=== PATIENT | male | born 1940 | race Caucasian/White ===

== ENCOUNTER → 2017-09-19 | Outpatient (CLI) | payer MEDICARE, BC ==
--- NOTE | 2017-09-19 11:56 | CT ---
EXAMINATION TYPE: CT brain wo con DATE OF EXAM: 09/19/2017 COMPARISON: NONE INDICATION: dizzy DLP: 1416 (brain and IAC) mGycm, Automated exposure control for dose reduction was used. CONTRAST: None CT of the brain is performed utilizing 3 mm thick sections through the posterior fossa and 3 mm thick sections through the remaining calvarium. Study is performed within 24 hours of arrival to the hosp ital. No abnormal hyperdensity is present to suggest an acute intracranial hemorrhage. No mass lesion is evident. No acute infarcts are evident. Minimal periventricular white matter hypodensity may be present, likel y on the basis of chronic white matter ischemic changes. Ventricles and sulci are appropriate for the patient age. Paranasal sinuses and mastoid air cells within the [id number] are clear. IMPRESSIONS: 1. No suspicious acute changes.
--- NOTE | 2017-09-19 14:09 | CT ---
EXAMINATION TYPE: CT iac wo con DATE OF EXAM: 09/19/2017 COMPARISON: NONE HISTORY: Dizziness CT DLP: 1416 (brain and IAC)mGycm Automated exposure control for dose reduction was used. FINDINGS: Internal auditory canals appear normal. No expansion or erosion is evident. Mastoid air garland ls are clear. Semicircular canals are unremarkable. The cochlea is normal. Middle ears are clear. Inc us and malleus have normal alignment. External auditory canals are clear. No masses are evident withi n the cerebellar pontine angles. Remaining portion of the brain is unremarkable. IMPRESSION: 1. Normal internal auditory canal study.
== END | disposition home or self-care (01) ==
LOC: RADCTMAIN 10:03
PROVIDERS: ATTEND Otolaryngology
DX: H93.3X9 Disorders of unspecified acoustic nerve (principal); H91.90 Unspecified hearing loss, unspecified ear
CPT/HCPCS: 70450; 70480; 82565; 84520

== ENCOUNTER → 2017-11-13 | Outpatient (CLI) | payer MEDICARE, BC | END | disposition home or self-care (01) | LOC: RADCTMAIN 09:44 | PROVIDERS: ATTEND Psychiatry & Neurology Neurology | DX: R42 Dizziness and giddiness (principal) | CPT/HCPCS: 82565; 84520 ==

== ENCOUNTER 2018-06-30 11:08 | Emergency (ER) | payer MEDICARE, BC ==
[2018-06-30 11:16] VITALS: RESP 18; TEMP 97.4
--- NOTE | 2018-06-30 11:24 | ED ---
Lower Extremity Injury HPI - General Chief Complaint: Extremity Injury, Lower Stated Complaint: fall/foot pain Time Seen by Provider: 06/30/18 11:20 Source: patient, RN notes reviewed Mode of arrival: ambulatory Limitations: no limitations - History of Present Illness Initial Comments: 77-year-old male presents emergency Department chief complaint of left foot pain. Patient states that last he slipped on some ice down some steps. Patient states he did fall on his back in his left foot. He states his back is better but states his foot continues to her. Patient states that he noticed some bruising. Patient denies any paresthesias. Denies any head injury no loss conscious. Patient states he is able to partially weight-bear but is very painful. Patient denies any prior fractures. - Related Data Home Medications Medication Instructions Recorded Confirmed Allopurinol [Zyloprim] 200 mg PO DAILY 02/09/16 06/30/18 Tamsulosin HCl [Flomax] 0.4 mg PO BID 02/09/16 06/30/18 Warfarin [Coumadin] 5 mg PO HS 02/09/16 06/30/18 cloNIDine HCL [Catapres] 0.2 mg PO BID 02/09/16 06/30/18 Albuterol Nebulized [Ventolin 2.5 mg INHALATION RT-BID 06/30/18 06/30/18 Nebulized] Furosemide [Lasix] 40 mg PO DAILY 06/30/18 06/30/18 Hydrochlorothiazide [Hydrodiuril] 25 mg PO DAILY 06/30/18 06/30/18 Insulin NPH Human Isophane 35 unit SQ AC-BID 06/30/18 06/30/18 [humuLIN N] Losartan [Cozaar] 50 mg PO DAILY 06/30/18 06/30/18 Pravastatin Sodium [Pravachol] 40 mg PO HS 06/30/18 06/30/18 amLODIPine [Norvasc] 10 mg PO DAILY 06/30/18 06/30/18 Allergies Allergy/AdvReac Type Severity Reaction Status Date / Time hyper immune syrum from Allergy Unknown Uncoded 06/30/18 11:16 horses Childhood Review of Systems ROS Statement: Those systems with pertinent positive or pertinent negative responses have been documented in the HPI. ROS Other: All systems not noted in ROS Statement are negative. Past Medical History Past Medical History: COPD, Diabetes Mellitus, Hyperlipidemia, Hypertension, Myocardial Infarction ([place]) History of Any Multi-Drug Resistant Organisms: None Reported Past Surgical History: Back Surgery, Cholecystectomy, Coronary Bypass/CABG, Heart Catheterization Past Psychological History: No Psychological Hx Reported Smoking Status: Former smoker Past Alcohol Use History: None Reported Past Drug Use History: None Reported General Exam Limitations: no limitations General appearance: alert, in no apparent distress Head exam: Present: atraumatic, normocephalic, normal inspection Respiratory exam: Present: normal lung sounds bilaterally. Absent: respiratory distress, wheezes, rales, rhonchi, stridor Cardiovascular Exam: Present: regular rate, normal rhythm, normal heart sounds. Absent: systolic murmur, diastolic murmur, rubs, gallop, clicks Extremities exam: Present: other (Left foot there is ecchymosis noted along second through fourth metatarsal region, mild lateral ecchymosis noted neurovascular intact there no malleoli tenderness no proximal tib-fib tenderness remaining extremity exam within normal limits) Back exam: Present: full ROM. Absent: tenderness, paraspinal tenderness, vertebral tenderness Skin exam: Present: warm, dry, intact, normal color. Absent: rash Course Vital Signs 06/30/18 11:14 Temperature 97.4 F L Pulse Rate 68 Respiratory 18 Rate Blood Pressure 183/81 O2 Sat by Pulse 99 Oximetry Medical Decision Making - Medical Decision Making 77-year-old male present emergency from for left foot injury. X-rays are obtained no acute fracture. Patient will follow-up with orthopedics for continuation of pain. Disposition Clinical Impression: Sprain of left foot Disposition: HOME SELF-CARE Condition: Stable Instructions (If sedation given, give patient instructions): Foot Sprain (ED) Additional Instructions: Please return to the Emergency Department if symptoms worsen or any other concerns. Is patient prescribed a controlled substance at d/c from ED?: No Referrals: Dereck Greenberg MD [Primary Care Provider] - 1-2 days Adams Frazier MD [STAFF PHYSICIAN] - 1-2 days Time of Disposition: 11:50
--- NOTE | 2018-06-30 11:46 | XR ---
EXAMINATION TYPE: XR foot complete LT DATE OF EXAM: 06/30/2018 CLINICAL HISTORY: Pain swelling and bruising after fall injury one week ago TECHNIQUE: Frontal, lateral, and oblique images of the left foot are obtained. COMPARISON: None FINDINGS: Osseous structures are somewhat demineralized which is noted lower radiographic sensitivity for evaluation of fine anatomic detail. There is no acute fracture/dislocation evident in the left f oot. Flexion in the toes is present. There are moderate-sized superior and inferior calcaneal spurs. There is mild to moderate diffuse subcutaneous edema and vascular calcification. IMPRESSION: There is no acute fracture or dislocation in the left foot.
[2018-06-30] MEDS ORDERED: ACET/COD 300 MG/30 MG STARTER PACK 6 TAB BTL PO STA (12:10)
[2018-06-30 12:20] VITALS: BP 147/60; PULSE 64
== END 2018-06-30 12:20 | disposition home or self-care (01) ==
LOC: EC 11:08
DX: S93.602A Unspecified sprain of left foot, initial encounter (principal); J44.9 Chronic obstructive pulmonary disease, unspecified; E11.9 Type 2 diabetes mellitus without complications; E78.5 Hyperlipidemia, unspecified; I10 Essential (primary) hypertension; I25.2 Old myocardial infarction; Z98.890 Other specified postprocedural states; Z95.1 Presence of aortocoronary bypass graft; Z95.818 Presence of other cardiac implants and grafts; Z87.891 Personal history of nicotine dependence; Z79.01 Long term (current) use of anticoagulants; Z79.4 Long term (current) use of insulin; Z79.899 Other long term (current) drug therapy; Z88.7 Allergy status to serum and vaccine; W00.1XXA Fall from stairs and steps due to ice and snow, initial encounter
CPT/HCPCS: 99283

== ENCOUNTER 2018-09-11 12:23 | Emergency (ER) | payer MEDICARE, BC ==
[2018-09-11 12:38] VITALS: TEMP 97.8
[2018-09-11] MEDS ORDERED: SODIUM CHLORIDE 0.9% 1,000 ML IV STA (12:44)
[2018-09-11 13:12] LABS: Basophils % (A) 0 %; Eosinophils # (A) 0.1 k/uL (0-0.7); Eosinophils % (A) 2 %; HCT 36.9 % (39.0-53.0); HGB 12.7 gm/dL (13.0-17.5); Lymphocytes # (A) 0.7 k/uL (1.0-4.8); Lymphocytes % (A) 14 %; MCH 28.9 pg (25.0-35.0); MCHC 34.5 g/dL (31.0-37.0); MCV 83.8 fL (80.0-100.0); Mean Platelet Volume 9.1; Monocytes # (A) 0.8 k/uL (0-1.0); Monocytes % (A) 14 %; Neutrophils # (A) 3.5 k/uL (1.3-7.7); Neutrophils % (A) 67 %; Platelet Count 100 k/uL (150-450); RDW 15.2 % (11.5-15.5); WBC 5.3 k/uL (3.8-10.6)
[2018-09-11 13:18] LABS: Albumin 3.9 g/dL (3.5-5.0); Calcium 8.6 mg/dL (8.4-10.2); Magnesium 2.1 mg/dL (1.6-2.3); Potassium 4.4 mmol/L (3.5-5.1); Total Protein 6.1 g/dL (6.3-8.2)
[2018-09-11 13:19] LABS: INR 1.2 (<1.2); Partial Thromboplastin Time 27.8 sec (22.0-30.0); Prothrombin Time 12.2 sec (9.0-12.0)
--- NOTE | 2018-09-11 13:19 | ED ---
General Adult HPI - General Chief complaint: Neuro Symptoms/Deficit Stated complaint: Left arm numbness Time Seen by Provider: 09/11/18 12:44 Source: patient, RN notes reviewed, old records reviewed Mode of arrival: ambulatory Limitations: no limitations - History of Present Illness Initial comments: 77-year-old male presents for evaluation of left arm numbness that began approximately 9 AM. This was 4 hours prior to arrival. Denies any focal weakne ss. Denies headache or vision changes. No history of CVA. Denies neck pain or stiffness. Denies trauma. Denies chest pain or dyspnea. Patient denies abdominal pain nausea or vomiting. Denies any other extremity issues. - Related Data Home Medications Medication Instructions Recorded Confirmed Allopurinol [Zyloprim] 100 mg PO BID 02/09/16 09/11/18 Tamsulosin HCl [Flomax] 0.8 mg PO DAILY 02/09/16 09/11/18 Albuterol Nebulized [Ventolin 2.5 mg INHALATION RT-QID PRN 06/30/18 09/11/18 Nebulized] Insulin NPH Human Isophane 35 unit SQ AC-BID 06/30/18 09/11/18 [humuLIN N] Losartan [Cozaar] 50 mg PO DAILY 06/30/18 09/11/18 Pravastatin Sodium [Pravachol] 40 mg PO HS 06/30/18 09/11/18 amLODIPine [Norvasc] 10 mg PO DAILY 06/30/18 09/11/18 Sodium Bicarbonate Tab 650 mg PO BID 09/11/18 09/11/18 Warfarin [Coumadin] 2.5 mg PO HS 09/11/18 09/11/18 Allergies Allergy/AdvReac Type Severity Reaction Status Date / Time hyper immune syrum from Allergy Unknown Uncoded 09/11/18 12:38 horses Childhood Review of Systems ROS Statement: Those systems with pertinent positive or pertinent negative responses have been documented in the HPI. ROS Other: All systems not noted in ROS Statement are negative. Past Medical History Past Medical History: COPD, Diabetes Mellitus, Hyperlipidemia, Hypertension, Myocardial Infarction ([place]) History of Any Multi-Drug Resistant Organisms: None Reported Past Surgical History: Back Surgery, Cholecystectomy, Coronary Bypass/CABG, Heart Catheterization Past Psychological History: No Psychological Hx Reported Smoking Status: Former smoker Past Alcohol Use History: None Reported Past Drug Use History: None Reported General Exam Limitations: no limitations General appearance: alert, in no apparent distress Head exam: Present: atraumatic, normocephalic Eye exam: Present: normal appearance, PERRL, EOMI ENT exam: Present: normal exam Neck exam: Present: normal inspection, full ROM. Absent: tenderness, meningismus, lymphadenopathy Respiratory exam: Present: normal lung sounds bilaterally. Absent: respiratory distress, wheezes Cardiovascular Exam: Present: regular rate, normal rhythm GI/Abdominal exam: Present: soft. Absent: distended, tenderness, guarding Neurological exam: Present: alert, oriented X3, CN II-XII intact, other (Patient reported numbness in the left arm however he has no perceivable numbness on exam, NIH 0). Absent: motor sensory deficit Psychiatric exam: Present: normal affect, normal mood Skin exam: Present: warm, dry, intact. Absent: cyanosis, diaphoretic Course Vital Signs 09/11/18 12:36 Temperature 97.8 F Pulse Rate 73 Respiratory 20 Rate Blood Pressure 177/85 O2 Sat by Pulse 99 Oximetry EKG Findings - EKG Comments: EKG Findings:: EKG: Atrial fibrillation with right bundle branch block, left anterior fascicular block, LVH, rate of 81, QRS duration 148, QTC 527, similar compared to previous EKG 2016. Medical Decision Making - Medical Decision Making 77-year-old male presents with acute onset left arm numbness. On exam patient is well-appearing, mildly hypertensive, he has a nonfocal neurologic exam NIH of 0, reports numbness tingling left arm with no perceivable sensory deficit. CT brain is obtained, negative for intracranial hemorrhage or mass effect, no a cute findings. CT of the cervical spine is obtained which does show from the stenosis at C5-C6, this may be the cause of the patient's symptoms although the sudden onset is suspicious for CVA. Especially in this patient without complaints of neck pain. Laboratory studies reveal normal CBC, creatinine 3.74 which is elevated from most recent at this institution although patient does have chronic kidney disease. This is discussed with the ER physician at [facility] with patient was recently admitted, Dr. Puri, will accept the patient as transfer. - Lab Data Result diagrams: 09/11/18 12:52 09/11/18 12:52 Lab Results 09/11/18 09/11/18 09/11/18 Range/Units 12:52 12:52 12:52 WBC 5.3 (3.8-10.6) k/uL RBC 4.40 (4.30-5.90) m/uL Hgb 12.7 L (13.0-17.5) gm/dL Hct 36.9 L (39.0-53.0) % MCV 83.8 (80.0-100.0) fL MCH 28.9 (25.0-35.0) pg MCHC 34.5 (31.0-37.0) g/dL RDW 15.2 (11.5-15.5) % Plt Count 100 L (150-450) k/uL Neutrophils % 67 % Lymphocytes % 14 % Monocytes % 14 % Eosinophils % 2 % Basophils % 0 % Neutrophils # 3.5 (1.3-7.7) k/uL Lymphocytes # 0.7 L (1.0-4.8) k/uL Monocytes # 0.8 (0-1.0) k/uL Eosinophils # 0.1 (0-0.7) k/uL Basophils # 0.0 (0-0.2) k/uL PT 12.2 H (9.0-12.0) sec INR 1.2 H (<1.2) APTT 27.8 (22.0-30.0) sec Sodium 136 L (137-145) mmol/L Potassium 4.4 (3.5-5.1) mmol/L Chloride 105 (98-107) mmol/L Carbon Dioxide 20 L (22-30) mmol/L Anion Gap 11 mmol/L BUN 42 H (9-20) mg/dL Creatinine 3.74 H (0.66-1.25) mg/dL Est GFR (CKD-EPI)AfAm 17 (>60 ml/min/1.73 sqM) Est GFR (CKD-EPI)NonAf 15 (>60 ml/min/1.73 sqM) Glucose 105 H (74-99) mg/dL Calcium 8.6 (8.4-10.2) mg/dL Magnesium 2.1 (1.6-2.3) mg/dL Total Bilirubin 1.0 (0.2-1.3) mg/dL AST 53 (17-59) U/L ALT 80 H (21-72) U/L Alkaline Phosphatase 114 (38-126) U/L Troponin I (0.000-0.034) ng/mL Total Protein 6.1 L (6.3-8.2) g/dL Albumin 3.9 (3.5-5.0) g/dL 09/11/18 Range/Units 12:52 WBC (3.8-10.6) k/uL RBC (4.30-5.90) m/uL Hgb (13.0-17.5) gm/dL Hct (39.0-53.0) % MCV (80.0-100.0) fL MCH (25.0-35.0) pg MCHC (31.0-37.0) g/dL RDW (11.5-15.5) % Plt Count (150-450) k/uL Neutrophils % % Lymphocytes % % Monocytes % % Eosinophils % % Basophils % % Neutrophils # (1.3-7.7) k/uL Lymphocytes # (1.0-4.8) k/uL Monocytes # (0-1.0) k/uL Eosinophils # (0-0.7) k/uL Basophils # (0-0.2) k/uL PT (9.0-12.0) sec INR (<1.2) APTT (22.0-30.0) sec Sodium (137-145) mmol/L Potassium (3.5-5.1) mmol/L Chloride (98-107) mmol/L Carbon Dioxide (22-30) mmol/L Anion Gap mmol/L BUN (9-20) mg/dL Creatinine (0.66-1.25) mg/dL Est GFR (CKD-EPI)AfAm (>60 ml/min/1.73 sqM) Est GFR (CKD-EPI)NonAf (>60 ml/min/1.73 sqM) Glucose (74-99) mg/dL Calcium (8.4-10.2) mg/dL Magnesium (1.6-2.3) mg/dL Total Bilirubin (0.2-1.3) mg/dL AST (17-59) U/L ALT (21-72) U/L Alkaline Phosphatase (38-126) U/L Troponin I 0.031 (0.000-0.034) ng/mL Total Protein (6.3-8.2) g/dL Albumin (3.5-5.0) g/dL Disposition Clinical Impression: Cerebrovascular accident, Cervical radiculopathy at C5 Disposition: OTHER INSTITUTION NOT DEFINED Condition: Stable Is patient prescribed a controlled substance at d/c from ED?: No Referrals: Dereck Greenberg MD [Primary Care Provider] - 1-2 days Time of Disposition: 14:35 Decision to Admit Reason: Admit from EC - Out of Hospital Transfer - Req. Specs Out of Hospital Transfer - Requested Specifics: Other Emergency Center (Transfer to [facility])
--- NOTE | 2018-09-11 13:44 | XR ---
EXAMINATION TYPE: XR chest 2V DATE OF EXAM: 09/11/2018 COMPARISON: Prior chest x-ray 02/09/2016 and 09/15/2013 HISTORY: Altered mental status TECHNIQUE: Frontal and lateral views of the chest are obtained. FINDINGS: Patient is post median sternotomy. There is no focal air space opacity, pleural effusion, or pneumothorax seen. Calcification present overlying the anterior fourth rib and fifth rib interspac e is stable. The cardiac silhouette size is within normal limits. The osseous structures are intact . Chondroid type lesion suspected within the proximal left humerus is stable. Prominent lung volume m ay be indicative of underlying COPD. IMPRESSION: No acute cardiopulmonary process.
--- NOTE | 2018-09-11 13:54 | CT ---
EXAMINATION TYPE: CT brain cspine wo con DATE OF EXAM: 09/11/2018 COMPARISON: 09/19/2017 HISTORY: Left arm weakness, right ear ringing CT DLP: 1434.4 mGycm, Automated exposure control for dose reduction was used. CONTRAST: None CT of the brain is performed utilizing 3 mm thick sections through the posterior fossa and 3 mm thick sections through the remaining calvarium. Study is performed within 24 hours of arrival to the hospital. No abnormal hyperdensity is present to suggest an acute intracranial hemorrhage. No mass lesion is evident. No acute infarcts are evident. Periventricular white matter hypodensity is present, likely on the ba sis of mild chronic white matter ischemic changes. Ventricles and sulci are prominent for the patient age. Paranasal sinuses and mastoid air cells within the [id number] are clear. IMPRESSIONS: 1. Age-related atrophy with mild periventricular white matter ischemic changes. CT cervical spine. COMPARISON: None CT of the cervical spine is performed in the axial plane at 2 mm thick sections. Reconstructed image s in the coronal, and sagittal plane are reviewed on the computer. No acute fractures are evident. Vertebral body alignment is normal. There is loss of disc height C5-6. Mild narrowing of posterior disc height is present C2-3 C3-4 C4-5. Vertebral body heights are preserved. No spinal canal stenosis is evident. Moderate left foraminal stenosis and mild right foraminal stenosis is present C5-6 secondary to uncov ertebral joint hypertrophy. Mild right foraminal narrowing is present C4-5 from uncovertebral joint h ypertrophy. IMPRESSIONS: 1. Degenerative disc change C5-6. 2. Foraminal stenosis C5-6 from uncovertebral joint hypertrophy.
[2018-09-11] MEDS ORDERED: ASPIRIN 325 MG TAB PO STA (14:29)
[2018-09-11 15:01] VITALS: BP 148/83; PULSE 69; RESP 14
== END 2018-09-11 15:25 | disposition other institution (70) ==
LOC: EC 12:23
DX: I63.9 Cerebral infarction, unspecified (principal); R29.701 NIHSS score 1; M48.02 Spinal stenosis, cervical region; M54.12 Radiculopathy, cervical region; R79.89 Other specified abnormal findings of blood chemistry; J44.9 Chronic obstructive pulmonary disease, unspecified; E78.5 Hyperlipidemia, unspecified; E11.22 Type 2 diabetes mellitus with diabetic chronic kidney disease; I12.9 Hypertensive chronic kidney disease with stage 1 through stage 4 chronic kidney disease, or unspecified chronic kidney disease; N18.9 Chronic kidney disease, unspecified; I25.2 Old myocardial infarction; Z95.1 Presence of aortocoronary bypass graft; Z95.818 Presence of other cardiac implants and grafts; Z87.891 Personal history of nicotine dependence; Z79.4 Long term (current) use of insulin; Z79.01 Long term (current) use of anticoagulants; Z79.899 Other long term (current) drug therapy; Z88.7 Allergy status to serum and vaccine
CPT/HCPCS: 36415; 70450; 71046; 72125; 80053; 83735; 84484; 85025; 85610; 85730; 93005; 96360; 96361; 99285

== ENCOUNTER 2019-10-20 19:16 | Inpatient (IN) | payer MEDICARE, BC ==
[2019-10-20] MEDS: SODIUM CHLORIDE 0.9% 1,000 ML IV SCH (22:00)
[2019-10-20] MEDS ORDERED: WARFARIN 2.5 MG TAB PO SCH (22:15)
[2019-10-20] MEDS ORDERED: hydrALAZINE HCL 50 MG TAB PO SCH (22:15)
[2019-10-20] MEDS: TAMSULOSIN 0.4 MG CAP.ER.24H PO SCH (23:21)
[2019-10-20] MEDS: PRAVASTATIN SODIUM 40 MG TAB PO SCH (23:21)
[2019-10-20] MEDS: DONEPEZIL 10 MG TAB PO SCH (23:21)
[2019-10-21 07:00] LABS: Glucose,Whole Blood 125 mg/dL (75-99)
[2019-10-21] MEDS: INSULIN ASPART (NovoLOG) 100 UNIT/ML VIAL SQ SCH ×4 (07:57→21:17)
[2019-10-21 08:38] LABS: INR 1.3 (<1.2); Prothrombin Time 12.9 sec (9.0-12.0)
[2019-10-21 08:42] LABS: Calcium 7.7 mg/dL (8.4-10.2); Potassium 4.2 mmol/L (3.5-5.1)
[2019-10-21] MEDS: TAMSULOSIN 0.4 MG CAP.ER.24H PO SCH ×2 (08:44→21:16)
[2019-10-21] MEDS: CALCITRIOL 0.25 MCG CAP PO SCH (08:44)
[2019-10-21] MEDS: ALLOPURINOL 100 MG TAB PO SCH (08:44)
[2019-10-21 08:46] LABS: Anisocytosis Slight; Basophils % (A) 0 %; Eosinophils # (A) 0.1 k/uL (0-0.7); Eosinophils % (A) 1 %; HCT 28.5 % (39.0-53.0); HGB 9.2 gm/dL (13.0-17.5); Hypochromasia Slight; Lymphocytes # (A) 0.3 k/uL (1.0-4.8); Lymphocytes % (A) 7 %; MCH 28.6 pg (25.0-35.0); MCHC 32.2 g/dL (31.0-37.0); MCV 88.8 fL (80.0-100.0); Mean Platelet Volume 9.5; Monocytes # (A) 0.6 k/uL (0-1.0); Monocytes % (A) 16 %; Neutrophils # (A) 2.8 k/uL (1.3-7.7); Neutrophils % (A) 72 %; RBC 3.21 m/uL (4.30-5.90); RDW 16.3 % (11.5-15.5); WBC 3.9 k/uL (3.8-10.6)
[2019-10-21] MEDS ORDERED: SPIRONOLACTONE 25 MG TAB PO SCH (09:00)
[2019-10-21] MEDS ORDERED: amLODIPine 10 MG TAB PO SCH (09:00)
--- NOTE | 2019-10-21 10:13 | P.NPCON ---
History of Present Illness - Reason for Consult chronic renal failure - History of Present Illness Reason for consultation: Chronic kidney disease History of present illness: Patient is a 79-year-old male seen in renal consultation for chronic kidney disease. 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 Patient's creatinine in June 2019 was 3.5 with GFR of 17. Patient presented to [facility] yesterday with left-sided flank pain. CAT scan revealed left-sided kidney stones along with mild hydronephrosis. Patient is a poor historian and actually doesn't remember why he is in the hospital. History was obtained from the chart. He denies vomiting or diarrhea. Denies edema. Does feel nauseated at times. Patient's creatinine was 6.5 yesterday and is 6.71 today. hemodynamically stable. No chest pain or shortness of breath. He currently does not have access for hemodialysis. He has been voiding. Vital signs are stable. General: The patient appeared well nourished and normally developed. HEENT: Head exam is unremarkable. Neck is without jugular venous distension. LUNGS: Lungs are clear to auscultation and percussion. Breath sounds decreased. HEART: Rate and Rhythm are regular. First and second heart sounds normal. ABDOMEN: Abdominal exam reveals normal bowel sounds. Non-tender and non- distended. EXTREMITITES: No clubbing, cyanosis, or edema. Past Medical History Past Medical History: COPD, Dementia, Diabetes Mellitus, Hyperlipidemia, Hypertension, Myocardial Infarction ([place]) Last Myocardial Infarction Date:: unsure History of Any Multi-Drug Resistant Organisms: None Reported Past Surgical History: Back Surgery, Cholecystectomy, Coronary Bypass/CABG, Heart Catheterization Past Anesthesia/Blood Transfusion Reactions: No Reported Reaction Past Psychological History: No Psychological Hx Reported Smoking Status: Former smoker Past Alcohol Use History: None Reported Past Drug Use History: None Reported Medications and Allergies Home Medications Medication Instructions Recorded Confirmed Type Allopurinol [Zyloprim] 100 mg PO DAILY 02/09/16 10/20/19 History Tamsulosin HCl [Flomax] 0.4 mg PO BID 02/09/16 10/20/19 History Insulin NPH Human Isophane 25 unit SQ AC-BRKFST 06/30/18 10/20/19 History [humuLIN N] Pravastatin Sodium [Pravachol] 40 mg PO HS 06/30/18 10/20/19 History amLODIPine [Norvasc] 10 mg PO DAILY 06/30/18 10/20/19 History Warfarin [Coumadin] 2.5 mg PO BID 09/11/18 10/20/19 History Calcitriol 0.25 mcg PO DAILY 10/20/19 10/20/19 History Donepezil [Aricept] 10 mg PO HS 10/20/19 10/20/19 History Insulin NPH Human Isophane See Protocol SQ HS 10/20/19 10/20/19 History [humuLIN N] Ipratropium-Albuterol Nebulize 3 ml INHALATION RT-QID PRN 10/20/19 10/20/19 History [Duoneb 0.5 mg-3 mg/3 ml Soln] Spironolactone [Aldactone] 50 mg PO DAILY 10/20/19 10/20/19 History hydrALAZINE HCL [Apresoline] 100 mg PO BID 10/20/19 10/20/19 History Allergies Allergy/AdvReac Type Severity Reaction Status Date / Time hyper immune syrum from Allergy Unknown Uncoded 10/20/19 21:56 horses Childhood Physical Exam Vitals: Vital Signs Temp Pulse Resp BP Pulse Ox 10/21/19 07:00 97.8 F 65 17 137/70 96 10/21/19 03:21 97.7 F 83 17 148/72 97 Intake and Output 10/20/19 10/21/19 10/21/19 22:59 06:59 14:59 Other: # Voids 1 1 Weight 106.594 kg Results - Lab Results Most recent lab results Calcium 7.7 mg/dL (8.4-10.2) L 10/21/19 08:13 10/21/19 08:13 10/21/19 08:13 Assessment and Plan Plan: Assessment: 1. 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 2. Abdominal pain with left-sided nephrolithiasis and hydronephrosis. 3. Metabolic acidosis secondary to chronic kidney disease. 4. Anemia of chronic kidney disease. Rule out iron deficiency. 5. Insulin-dependent diabetes mellitus. 6. Chronic kidney disease mineral bone disease maintained on calcitriol. Plan: Decrease normal saline to 50 mL an hour. Add oral sodium bicarbonate 1300 mg twice daily. Check phosphorus level. Check UA and urine culture. Consult urology for hydronephrosis and nephrolithiasis. Check iron studies. Patient and his have both agreed to proceed with renal replacement therapy. Consult vascular surgery for permacath placement. Plan for first treatment of hemodialysis tomorrow. manager qa to set up outpatient hemodialysis. Thank you for the consultation. I will continue to follow the patient with you during his hospital stay.
[2019-10-21 10:51] LABS: Platelet Count 68 k/uL (150-450); Poikilocytosis (M) Present
[2019-10-21] MEDS: SODIUM CHLORIDE 0.9% 1,000 ML IV SCH (11:28)
[2019-10-21] MEDS: SODIUM BICARBONATE TAB 650 MG TAB PO SCH ×2 (11:28→21:16)
[2019-10-21 11:33] LABS: Glucose,Whole Blood 155 mg/dL (75-99)
--- NOTE | 2019-10-21 11:39 | XR ---
KUB HISTORY: Renal calculi Frontal KUB and 2 images Comparison to prior exam 09/15/2013 There are dense splenic artery calcifications. Lung bases are clear. Patient is post median sternotom y. There is overlying artifact in leads are present. No evident bowel obstruction or pneumoperitoneum . Calcification is present superimposed over the midpole the left kidney paraspinal location measurin g approximately 9 mm. Degenerative disc changes are present in the visualized spine. IMPRESSION: Findings may be indicative of nephrolithiasis or proximal ureteral lithiasis. Bowel gas m ay obscure underlying detail.
[2019-10-21 11:46] LABS: Appearance,Urine Clear (Clear); Bacteria,Urine Rare /hpf; Bilirubin,Urine Negative (Negative); Blood,Urine Moderate (Negative); Color,Urine Yellow; Glucose,Urine (UA) Trace (Negative); Ketones,Urine Negative (Negative); Leukocyte Esterase,Urine Negative (Negative); Mucus,Urine Rare /hpf; Nitrite,Urine Negative (Negative); PH, Urine 5.5 (5.0-8.0); Protein,Urine 2+ (Negative); RBC,Urine 16 /hpf (0-5); Specific Gravity,Urine 1.013 (1.001-1.035); Urobilinogen,Urine <2.0 mg/dL (<2.0); WBC,Urine 3 /hpf (0-5)
--- NOTE | 2019-10-21 12:42 | US ---
EXAMINATION TYPE: US kidneys/renal and bladder DATE OF EXAM: 10/21/2019 COMPARISON: US 07/26/2015. CT September 15, 2013. CLINICAL HISTORY: Hydronephrosis. Abnormal renal lab values. EXAM MEASUREMENTS: Right Kidney: 9.6 x 5.4 x 5.1 cm Left Kidney: 12.2 x 5.9 x 6.0 cm Right Kidney: No hydronephrosis. Cystic area visualized measuring 2.6 cm upper pole Left Kidney: No hydronephrosis. Two Cystic areas visualized, largest measuring 2.7 x 2.5 x 2.5 cm up per pole Bladder: wnl as visualized, not fully distended Bilateral Jets seen: Not visualized on this exam Suboptimal study due to body habitus. There is no evidence for hydronephrosis at this point in time. Cortical thinning in both kidneys seen. A few scattered simple-appearing thin-walled cysts are presen t bilaterally correlate with 2016 CT. No nephrolithiasis is seen. . The urinary bladder is not grea tly distended without intraluminal mass. IMPRESSION: Suboptimal study without hydronephrosis seen bilaterally.
[2019-10-21 15:25] LABS: % Iron Saturation 20.99 (15.00-50.00)
[2019-10-21 15:32] LABS: Ferritin 201.5 ng/mL (22.0-322.0)
[2019-10-21 16:33] LABS: Glucose,Whole Blood 123 mg/dL (75-99)
[2019-10-21 16:45] LABS: Hepatitis B Surface Antigen Non-Reactive (Non-Reactive)
[2019-10-21 16:46] LABS: Hepatitis A Antibody IgM Non-Reactive (Non-Reactive); Hepatitis B Core IgM Non-Reactive (Non-Reactive); Hepatitis C IgG Antibody Non-Reactive (Non-Reactive)
--- NOTE | 2019-10-21 17:42 | P.GSCN ---
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 His serum creatinine level ranged between 3.3 and 3.9 from September 2018 through June 2019. I have seen him in the past in the office, and he is known to have bilateral renal cysts. He presented to [facility] yesterday with left flank discomfort, which she states has been present for several months. He is a vague historian. A computed tomography scan of the abdomen and pelvis without contrast performed on 10/16/2019 revealed a an 11 mm left renal pelvic calculus and a 7 mm left mid pole calculus. Additionally, there was evidence of minimal left hydronephrosis, apparently due to a 2 mm left distal ureteral calculus. No right-sided calculi were seen. Unfortunately, the CD disc sent with him at transfer does not display the images. A renal ultrasound performed earlier today shows no evidence of hydronephrosis. Review of Systems - Constitutional Denies chills, Denies fever - Cardiovascular Denies chest pain - Respiratory Denies dyspnea - Gastrointestinal Denies nausea, Denies vomiting - Genitourinary Reports flank pain, Denies dysuria, Denies hematuria Past Medical History Past Medical History: COPD, Dementia, Diabetes Mellitus, Hyperlipidemia, Hyper tension, Myocardial Infarction ([place]) Last Myocardial Infarction Date:: unsure History of Any Multi-Drug Resistant Organisms: None Reported Past Surgical History: Back Surgery, Cholecystectomy, Coronary Bypass/CABG, Heart Catheterization Past Anesthesia/Blood Transfusion Reactions: No Reported Reaction Past Psychological History: No Psychological Hx Reported Smoking Status: Former smoker Past Alcohol Use History: None Reported Past Drug Use History: None Reported Medications and Allergies Home Medications Medication Instructions Recorded Confirmed Type Allopurinol [Zyloprim] 100 mg PO DAILY 02/09/16 10/20/19 History Tamsulosin HCl [Flomax] 0.4 mg PO BID 02/09/16 10/20/19 History Insulin NPH Human Isophane 25 unit SQ AC-BRKFST 06/30/18 10/20/19 History [humuLIN N] Pravastatin Sodium [Pravachol] 40 mg PO HS 06/30/18 10/20/19 History amLODIPine [Norvasc] 10 mg PO DAILY 06/30/18 10/20/19 History Warfarin [Coumadin] 2.5 mg PO BID 09/11/18 10/20/19 History Calcitriol 0.25 mcg PO DAILY 10/20/19 10/20/19 History Donepezil [Aricept] 10 mg PO HS 10/20/19 10/20/19 History Insulin NPH Human Isophane See Protocol SQ HS 10/20/19 10/20/19 History [humuLIN N] Ipratropium-Albuterol Nebulize 3 ml INHALATION RT-QID PRN 10/20/19 10/20/19 History [Duoneb 0.5 mg-3 mg/3 ml Soln] Spironolactone [Aldactone] 50 mg PO DAILY 10/20/19 10/20/19 History hydrALAZINE HCL [Apresoline] 100 mg PO BID 10/20/19 10/20/19 History Allergies Allergy/AdvReac Type Severity Reaction Status Date / Time hyper immune syrum from Allergy Unknown Uncoded 10/20/19 21:56 horses Childhood Surgical - Exam Vital Signs Temp Pulse Resp BP Pulse Ox 97.7 F 83 17 148/72 97 10/21/19 03:21 10/21/19 03:21 10/21/19 03:21 10/21/19 03:21 10/21/19 03:21 - General well developed, well nourished, no distress - Neck no masses, trachea midline - Respiratory normal respiratory effort - Abdomen Abdomen: soft, non tender, no guarding, no rigid, no rebound - Genitourinary normal penis with no external lesions, testicles non-tender - Psychiatric oriented to time, oriented to person, oriented to place, speech is normal, memory intact Results - Labs 10/21/19 08:13 10/21/19 08:13 Abnormal Lab Results - Last 24 Hours (Table) 10/21/19 10/21/19 10/21/19 Range/Units 06:58 08:13 08:13 RBC 3.21 L (4.30-5.90) m/uL Hgb 9.2 L (13.0-17.5) gm/dL Hct 28.5 L (39.0-53.0) % RDW 16.3 H (11.5-15.5) % Plt Count 68 L (150-450) k/uL PT (9.0-12.0) sec INR (<1.2) Chloride 115 H (98-107) mmol/L Carbon Dioxide 10 L (22-30) mmol/L BUN 65 H (9-20) mg/dL Creatinine 6.71 H (0.66-1.25) mg/dL Glucose 110 H (74-99) mg/dL POC Glucose (mg/dL) 125 H (75-99) mg/dL Calcium 7.7 L (8.4-10.2) mg/dL 10/21/19 Range/Units 08:13 RBC (4.30-5.90) m/uL Hgb (13.0-17.5) gm/dL Hct (39.0-53.0) % RDW (11.5-15.5) % Plt Count (150-450) k/uL PT 12.9 H (9.0-12.0) sec INR 1.3 H (<1.2) Chloride (98-107) mmol/L Carbon Dioxide (22-30) mmol/L BUN (9-20) mg/dL Creatinine (0.66-1.25) mg/dL Glucose (74-99) mg/dL POC Glucose (mg/dL) (75-99) mg/dL Calcium (8.4-10.2) mg/dL Diabetes panel 10/21/19 Range/Units 08:13 Sodium 138 (137-145) mmol/L Potassium 4.2 (3.5-5.1) mmol/L Chloride 115 H (98-107) mmol/L Carbon Dioxide 10 L (22-30) mmol/L BUN 65 H (9-20) mg/dL Creatinine 6.71 H (0.66-1.25) mg/dL Glucose 110 H (74-99) mg/dL Calcium 7.7 L (8.4-10.2) mg/dL Calcium panel 10/21/19 Range/Units 08:13 Calcium 7.7 L (8.4-10.2) mg/dL Pituitary panel 10/21/19 Range/Units 08:13 Sodium 138 (137-145) mmol/L Potassium 4.2 (3.5-5.1) mmol/L Chloride 115 H (98-107) mmol/L Carbon Dioxide 10 L (22-30) mmol/L BUN 65 H (9-20) mg/dL Creatinine 6.71 H (0.66-1.25) mg/dL Glucose 110 H (74-99) mg/dL Calcium 7.7 L (8.4-10.2) mg/dL Adrenal panel 10/21/19 Range/Units 08:13 Sodium 138 (137-145) mmol/L Potassium 4.2 (3.5-5.1) mmol/L Chloride 115 H (98-107) mmol/L Carbon Dioxide 10 L (22-30) mmol/L BUN 65 H (9-20) mg/dL Creatinine 6.71 H (0.66-1.25) mg/dL Glucose 110 H (74-99) mg/dL Calcium 7.7 L (8.4-10.2) mg/dL - Imaging US - kidney/bladder: report reviewed, image reviewed Assessment and Plan Plan: I explained to the patient that the left renal calculi do not appear to be obstructing, and thus unlikely to be contributing to his renal failure. The computed tomography scan suggested the presence of minimal left hydronephrosis due to a 2 mm left distal ureteral calculus, which he may have passed as there is currently no evidence of hydronephrosis seen on ultrasound. It would be advisable for him to undergo ureteroscopic removal of the calculi, as they are not seen on a plain radiograph (thus ESWL cannot be performed). Consideration will be given to performing this tomorrow, though he is scheduled to undergo dialysis catheter placement and it may not be possible to coordinate these procedures. I did review with him what the ureteroscopic procedure consists of, as well as potential risks which include anesthesia, infection, and ureteral injury. He was made aware of the fact that a ureteral stent will be left in place, and that given his stone burden he may require a secondary procedure. Time with Patient: Greater than 30
[2019-10-21] MEDS ORDERED: WARFARIN 5 MG TAB PO SCH (18:00)
--- NOTE | 2019-10-21 18:08 | P.HPIM ---
History of Present Illness H&P Date: 10/21/19 Chief Complaint: Left flank pain History of presenting complaint: This is a pleasant 79-year-old patient of Dr. Greenberg. Reticulocyte stable medical conditions include hypertension, chronic kidney disease, COPD, hyperlipidemia, coronary artery disease, diabetes, osteoarthritis, cognitive impairment, erectile dysfunction. He should not presented to [facility]. With left flank feeling weak. Radiological studies done there showed the left distal ureter stone just proximal to the UVJ junction and also stone in the renal pelvis. Patient was sent down here for urological evaluation. Also was found to have graciously worsening renal function with the bun of 68 and creatinine was 6.5. Patient not the best of historians. Does feel tired and rundown. Consultation was made to urology and nephrology. Patient does take Coumadin which was held. Plan is for her dialysis catheter replaced hopefully tomorrow. Denies any chest pain or palpitation. No fever no chills. Appetite is somewhat okay. Review of systems: GEN.: Tired EYES: None HEENT: None NECK: None RESPIRATORY: None CARDIOVASCULAR: None GASTROINTESTINAL: None GENITOURINARY: None MUSCULOSKELETAL: Some joint pains] LYMPHATICS: None HEMATOLOGICAL: None PSYCHIATRY: Forgetful NEUROLOGICAL: None Past medical history to include: Hypertension, chronic kidney disease, COPD, hyperlipidemia, coronary artery disease, diabetes, osteoarthritis, dementia, erectile dysfunction Social history: Lives at [facility]. Denies history of smoking or alcohol. Physical examination: VITAL SIGNS: 99.2, 96, 22, 118/63, 94% on room air] GENERAL: BMI 33.7, sitting at age of the bed a bit tired. EYES: Pupils equal. Conjunctiva normal. HEENT: External appearance of nose and ears normal, oral cavity grossly normal. NECK: JVD not raised; masses not palpable. HEART: First and second heart sounds are normal; no edema. LUNGS: Respiratory rate normal; clear to auscultation. ABDOMEN: Soft, nontender, liver spleen not palpable, no masses palpable. PSYCH: Able to answer simple questionsl. NEUROLOGICAL: Cranial nerves grossly intact; no facial asymmetry, power and sensation grossly intact. LYMPHATICS: No lymph nodes palpable in the axilla and neck INVESTIGATIONS, reviewed in the clinical context: Lab work from [facility] shows: White count 4.4 hemoglobin 8.7 platelets 86 sodium 136 potassium 4.5 INR 1.29 bun 68 creatinine 6.5 Computed tomography scan of the abdomen shows stone in the left ureter distally and also renal pelvic stone. Assessment: -Left ureteral stone distal proximal to the left ureter junction -Renal nephrolithiasis -Acute on chronic kidney disease advanced with uremic symptoms patient will need renal replacement therapy -Chronic kidney disease stage V -Metabolic acidosis from renal failure -Normocytic anemia likely secondary to chronic kidney disease -Thrombocytopenia -Diabetes mellitus type 2 chronically on insulin -BPH -Coronary artery disease -Moderate cognitive impairment probably from late onset Alzheimer's dementia -COPD -Essential hypertension -Hyperlipidemia -Primary osteoarthritis Plan: Home medications were resumed. Coumadin has been held. Accu-Cheks will be followed. Switch from Humulin and to Levemir.. Care was discussed with the patient. Consultation made to nephrology, urology and vascular surgery. Plan is for a dialysis catheter to be placed tomorrow. Past Medical History Past Medical History: COPD, Dementia, Diabetes Mellitus, Hyperlipidemia, Hypertension, Myocardial Infarction ([place]) Last Myocardial Infarction Date:: unsure History of Any Multi-Drug Resistant Organisms: None Reported Past Surgical History: Back Surgery, Cholecystectomy, Coronary Bypass/CABG, Heart Catheterization Past Anesthesia/Blood Transfusion Reactions: No Reported Reaction Past Psychological History: No Psychological Hx Reported Smoking Status: Former smoker Past Alcohol Use History: None Reported Past Drug Use History: None Reported Medications and Allergies Home Medications Medication Instructions Recorded Confirmed Type Allopurinol [Zyloprim] 100 mg PO DAILY 02/09/16 10/20/19 History Tamsulosin HCl [Flomax] 0.4 mg PO BID 02/09/16 10/20/19 History Insulin NPH Human Isophane 25 unit SQ AC-BRKFST 06/30/18 10/20/19 History [humuLIN N] Pravastatin Sodium [Pravachol] 40 mg PO 06/30/18 10/20/19 History amLODIPine [Norvasc] 10 mg PO DAILY 06/30/18 10/20/19 History Warfarin [Coumadin] 2.5 mg PO BID 09/11/18 10/20/19 History Calcitriol 0.25 mcg PO DAILY 10/20/19 10/20/19 History Donepezil [Aricept] 10 mg PO 10/20/19 10/20/19 History Insulin NPH Human Isophane See Protocol SQ 10/20/19 10/20/19 History [humuLIN N] Ipratropium-Albuterol Nebulize 3 ml INHALATION RT-QID PRN 10/20/19 10/20/19 History [Duoneb 0.5 mg-3 mg/3 ml Soln] Spironolactone [Aldactone] 50 mg PO DAILY 10/20/19 10/20/19 History hydrALAZINE HCL [Apresoline] 100 mg PO BID 10/20/19 10/20/19 History Allergies Allergy/AdvReac Type Severity Reaction Status Date / Time hyper immune syrum from Allergy Unknown Uncoded 10/20/19 21:56 horses Childhood Physical Exam Vitals: Vital Signs Temp Pulse Resp BP Pulse Ox 10/21/19 07:00 97.8 F 65 17 137/70 96 10/21/19 03:21 97.7 F 83 17 148/72 97 Intake and Output 10/20/19 10/21/19 10/21/19 22:59 06:59 14:59 Other: # Voids 1 1 Weight 106.594 kg Results CBC & Chem 7: 10/21/19 08:13 10/21/19 08:13 Labs: Abnormal Lab Results - Last 24 Hours (Table) 10/21/19 10/21/19 10/21/19 Range/Units 06:58 08:13 08:13 RBC 3.21 L (4.30-5.90) m/uL Hgb 9.2 L (13.0-17.5) gm/dL Hct 28.5 L (39.0-53.0) % RDW 16.3 H (11.5-15.5) % Plt Count 68 L (150-450) k/uL PT (9.0-12.0) sec INR (<1.2) Chloride 115 H (98-107) mmol/L Carbon Dioxide 10 L (22-30) mmol/L BUN 65 H (9-20) mg/dL Creatinine 6.71 H (0.66-1.25) mg/dL Glucose 110 H (74-99) mg/dL POC Glucose (mg/dL) 125 H (75-99) mg/dL Calcium 7.7 L (8.4-10.2) mg/dL 10/21/19 Range/Units 08:13 RBC (4.30-5.90) m/uL Hgb (13.0-17.5) gm/dL Hct (39.0-53.0) % RDW (11.5-15.5) % Plt Count (150-450) k/uL PT 12.9 H (9.0-12.0) sec INR 1.3 H (<1.2) Chloride (98-107) mmol/L Carbon Dioxide (22-30) mmol/L BUN (9-20) mg/dL Creatinine (0.66-1.25) mg/dL Glucose (74-99) mg/dL POC Glucose (mg/dL) (75-99) mg/dL Calcium (8.4-10.2) mg/dL Thrombosis Risk Factor Assmnt - Choose All That Apply Any of the Below Risk Factors Present?: Yes Each Factor Represents 1 point: Obesity (BMI >25), Swollen legs (current) Other Risk Factors: Yes Each Risk Factor Represents 3 Points: Age 75 years or older Other congenital or acquired thrombophilia - If yes, enter type in comment: No Thrombosis Risk Factor Assessment Total Risk Factor Score: 5 Thrombosis Risk Factor Assessment Level: High Risk
[2019-10-21 21:08] LABS: Glucose,Whole Blood 146 mg/dL (75-99)
[2019-10-21] MEDS: PRAVASTATIN SODIUM 40 MG TAB PO SCH (21:16)
[2019-10-21] MEDS: DONEPEZIL 10 MG TAB PO SCH (21:16)
[2019-10-21] MEDS: INSULIN DETEMIR (LEVEMIR) 100 UNIT/ML SYR SQ SCH (21:16)
[2019-10-22 07:05] LABS: Glucose,Whole Blood 109 mg/dL (75-99)
[2019-10-22] MEDS: INSULIN ASPART (NovoLOG) 100 UNIT/ML VIAL SQ SCH ×4 (07:19→20:44)
[2019-10-22 08:34] LABS: Anisocytosis Slight; Basophils % (A) 1 %; Eosinophils # (A) 0.1 k/uL (0-0.7); Eosinophils % (A) 3 %; HCT 25.6 % (39.0-53.0); HGB 8.4 gm/dL (13.0-17.5); Hypochromasia Slight; INR 1.3 (<1.2); Lymphocytes # (A) 0.3 k/uL (1.0-4.8); Lymphocytes % (A) 11 %; MCH 28.9 pg (25.0-35.0); MCHC 32.8 g/dL (31.0-37.0); MCV 88.2 fL (80.0-100.0); Mean Platelet Volume 9.9; Monocytes # (A) 0.5 k/uL (0-1.0); Monocytes % (A) 17 %; Neutrophils % (A) 65 %; Prothrombin Time 13.3 sec (9.0-12.0); WBC 3.1 k/uL (3.8-10.6)
[2019-10-22 08:41] LABS: Calcium 7.8 mg/dL (8.4-10.2); Magnesium 1.7 mg/dL (1.6-2.3); Phosphorus 6.7 mg/dL (2.5-4.5); Potassium 4.2 mmol/L (3.5-5.1)
[2019-10-22 08:43] LABS: Platelet Count 73 k/uL (150-450)
[2019-10-22] MEDS: ALLOPURINOL 100 MG TAB PO SCH (08:50)
[2019-10-22] MEDS: SODIUM BICARBONATE TAB 650 MG TAB PO SCH ×2 (08:50→20:43)
[2019-10-22] MEDS: CALCITRIOL 0.25 MCG CAP PO SCH (08:50)
[2019-10-22] MEDS: TAMSULOSIN 0.4 MG CAP.ER.24H PO SCH ×2 (08:50→20:44)
[2019-10-22] MEDS: SODIUM CHLORIDE 0.9% 1,000 ML IV SCH (08:51)
--- NOTE | 2019-10-22 11:13 | P.PN ---
Subjective Patient is seen in follow-up for chronic kidney disease. Patient has chronic kidney disease stage V secondary to diabetic kidney disease. Scheduled for permacath placement at first treatment of hemodialysis today. No active complaints. Vital signs are stable. General: The patient appeared well nourished and normally developed. HEENT: Head exam is unremarkable. Neck is without jugular venous distension. LUNGS: Lungs are clear to auscultation and percussion. Breath sounds decreased. HEART: Rate and Rhythm are regular. ABDOMEN: Nontender, nondistended. EXTREMITITES: No clubbing, cyanosis, or edema. Objective - Vital Signs Vital signs: Vital Signs Temp 97.5 F L 10/22/19 07:00 Pulse 79 10/22/19 08:00 Resp 17 10/22/19 08:00 BP 135/68 10/22/19 07:00 Pulse Ox 98 10/22/19 07:00 Intake & Output 10/21/19 10/22/19 10/22/19 18:59 06:59 18:59 Intake Total 100 Balance 100 Intake: Oral 100 Other: # Voids 2 - Labs CBC & Chem 7: 10/22/19 07:57 10/22/19 07:57 Labs: Abnormal Lab Results - Last 24 Hours (Table) 10/21/19 10/21/19 10/21/19 Range/Units 08:13 10:09 11:32 WBC (3.8-10.6) k/uL RBC (4.30-5.90) m/uL Hgb (13.0-17.5) gm/dL Hct (39.0-53.0) % RDW (11.5-15.5) % Plt Count (150-450) k/uL Lymphocytes # (1.0-4.8) k/uL PT (9.0-12.0) sec INR (<1.2) Chloride (98-107) mmol/L Carbon Dioxide (22-30) mmol/L BUN (9-20) mg/dL Creatinine (0.66-1.25) mg/dL POC Glucose (mg/dL) 155 H (75-99) mg/dL Calcium (8.4-10.2) mg/dL Phosphorus (2.5-4.5) mg/dL Iron 55 L (65-175) ug/dL Urine Protein 2+ H (Negative) Urine Glucose (UA) Trace H (Negative) Urine Blood Moderate H (Negative) Urine RBC 16 H (0-5) /hpf Urine Bacteria Rare H (None) /hpf Urine Mucus Rare H (None) /hpf 10/21/19 10/21/19 10/22/19 Range/Units 16:32 21:04 07:03 WBC (3.8-10.6) k/uL RBC (4.30-5.90) m/uL Hgb (13.0-17.5) gm/dL Hct (39.0-53.0) % RDW (11.5-15.5) % Plt Count (150-450) k/uL Lymphocytes # (1.0-4.8) k/uL PT (9.0-12.0) sec INR (<1.2) Chloride (98-107) mmol/L Carbon Dioxide (22-30) mmol/L BUN (9-20) mg/dL Creatinine (0.66-1.25) mg/dL POC Glucose (mg/dL) 123 H 146 H 109 H (75-99) mg/dL Calcium (8.4-10.2) mg/dL Phosphorus (2.5-4.5) mg/dL Iron (65-175) ug/dL Urine Protein (Negative) Urine Glucose (UA) (Negative) Urine Blood (Negative) Urine RBC (0-5) /hpf Urine Bacteria (None) /hpf Urine Mucus (None) /hpf 10/22/19 10/22/19 10/22/19 Range/Units 07:57 07:57 07:57 WBC 3.1 L (3.8-10.6) k/uL RBC 2.90 L (4.30-5.90) m/uL Hgb 8.4 L (13.0-17.5) gm/dL Hct 25.6 L (39.0-53.0) % RDW 16.0 H (11.5-15.5) % Plt Count 73 L (150-450) k/uL Lymphocytes # 0.3 L (1.0-4.8) k/uL PT 13.3 H (9.0-12.0) sec INR 1.3 H (<1.2) Chloride 116 H (98-107) mmol/L Carbon Dioxide 10 L (22-30) mmol/L BUN 63 H (9-20) mg/dL Creatinine 6.62 H (0.66-1.25) mg/dL POC Glucose (mg/dL) (75-99) mg/dL Calcium 7.8 L (8.4-10.2) mg/dL Phosphorus 6.7 H (2.5-4.5) mg/dL Iron (65-175) ug/dL Urine Protein (Negative) Urine Glucose (UA) (Negative) Urine Blood (Negative) Urine RBC (0-5) /hpf Urine Bacteria (None) /hpf Urine Mucus (None) /hpf Microbiology - Last 24 Hours (Table) 10/21/19 10:09 Urine Culture - Preliminary Urine,Voided Assessment and Plan Plan: Assessment: 1. 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 2. Abdominal pain with left-sided nephrolithiasis and hydronephrosis. Urology following. Potential ureteroscopy this admission. 3. Metabolic acidosis secondary to chronic kidney disease. Maintained on oral sodium bicarbonate. Expect improvement post dialysis. 4. Anemia of chronic kidney disease. Iron deficiency noted. 5. Insulin-dependent diabetes mellitus. 6. Chronic kidney disease mineral bone disease maintained on calcitriol. 7. Hyperphosphatemia secondary to chronic kidney disease. Expect improvement postdialysis. Plan: Maintain oral sodium bicarbonate. IV iron 3 doses. First dose today. Patient and his have both agreed to proceed with renal replacement therapy. Scheduled for permacath placement today. First treatment of hemodialysis today and second treatment tomorrow. skating rink manager to set up outpatient hemodialysis.
[2019-10-22] MEDS ORDERED: SODIUM FERRIC GLUCONAT-SUCROSE 125 MG in SODIUM CHLORIDE 0.9% 100 ML IVPB SCH (11:15)
[2019-10-22 12:04] LABS: Glucose,Whole Blood 93 mg/dL (75-99)
[2019-10-22] MEDS ORDERED: HYDROmorphone 0.5 MG/0.5 ML SYRINGE IVP PRN (14:12)
[2019-10-22] MEDS ORDERED: MIDAZOLAM 2 MG/2 ML VIAL IV ONE (14:35)
[2019-10-22] MEDS ORDERED: LIDOCAINE 1% INJ 10MG/ML (20 ML MDV) SQ ONE (14:39)
[2019-10-22] MEDS ORDERED: IV FLUID CONTINUATION 1,000 ML IV ONE (14:43)
[2019-10-22] MEDS ORDERED: HEPARIN SODIUM 1,000 UN/ML (10ML VL) IV ONE (14:47)
--- NOTE | 2019-10-22 15:23 | XR ---
EXAMINATION TYPE: XR chest 1V portable DATE OF EXAM: 10/22/2019 HISTORY: Verify placement of Right IJ dialysis cath. COMPARISON: None. TECHNIQUE: Single view of the chest is submitted. FINDINGS: Demonstrated are scattered senescent parenchymal change. There is no evidence for focal infiltrate. Right-sided IJ dialysis catheter is noted with its distal tip overlying the SVC. No evidence for pneumothorax. The heart is enlarged. Hilar and mediastinal structures are within normal limits. Degenerative changes are seen of the dorsal spine. IMPRESSION: 1. Chronic changes without evidence for acute pulmonary disease.
[2019-10-22] MEDS: LACTATED RINGERS 1,000 ML IV SCH (15:27)
[2019-10-22] MEDS: SODIUM FERRIC GLUCONAT-SUCROSE 125 MG in SODIUM CHLORIDE 0.9% 100 ML IVPB SCH (15:27)
[2019-10-22 16:22] LABS: Glucose,Whole Blood 131 mg/dL (75-99)
--- NOTE | 2019-10-22 16:35 | P.PN ---
Progress Note - Text Progress Note Date: 10/22/19 The patient is currently undergoing dialysis. I attempted to review the computed tomography scan, but the images could not be viewed on 2 separate computers. In any case, the computed tomography scan report suggested the presence of a small left distal ureteral calculus as well as 2 left renal calculi. I intend to perform cystoscopy, left retrograde pyelogram, left ureteroscopy with holmium laser lithotripsy, left ureteral stent placement tomorrow. I have reviewed the entire procedure with him, including the rationale and potential risks. These include anesthesia, bleeding, infection, and ureteral injury. He is aware of the possible need for a secondary treatment.
--- NOTE | 2019-10-22 19:22 | P.PN ---
Progress Note - Text Progress Note Date: 10/22/19 Chief Complaint: Left flank pain History of presenting complaint: This is a pleasant 79-year-old patient of Dr. Greenberg. Reticulocyte stable medical conditions include hypertension, chronic kidney disease, COPD, hyperlipidemia, coronary artery disease, diabetes, osteoarthritis, cognitive impairment, erectile dysfunction. He should not presented to [place] [facility]. With left flank feeling weak. Radiological studies done there showed the left distal ureter stone just proximal to the UVJ junction and also stone in the renal pelvis. Patient was sent down here for urological evaluation. Also was found to have graciously worsening renal function with the bun of 68 and creatinine was 6.5. Patient not the best of historians. Does feel tired and rundown. Consultation was made to urology and nephrology. Patient does take Coumadin which was held. Plan is for her dialysis catheter replaced hopefully tomorrow. Denies any chest pain or palpitation. No fever no chills. Appetite is somewhat okay. Admitted with-left ureter stone, acute on chronic kidney disease, metabolic acidosis. Coumadin was held. IV fluids. Today-sitting up. Tolerating a diet. Patient is scheduled for dialysis catheter placement this afternoon. No new issues. Review of systems: Was done for constitutional, cardiovascular, GI, pulmonary. relevant finding as above Active Medications Allopurinol (Zyloprim) 100 mg PO DAILY [facility] Last Admin: 10/22/19 08:50 Dose: 100 mg Documented by: Calcitriol (Rocaltrol) 0.25 mcg PO DAILY [facility] Last Admin: 10/22/19 08:50 Dose: 0.25 mcg Documented by: Donepezil HCl (Aricept) 10 mg PO HS [facility] Last Admin: 10/21/19 21:16 Dose: 10 mg Documented by: Hydromorphone HCl (Dilaudid) 0.5 mg IVP Q5M PRN PRN Reason: Pain Control Stop: 10/23/19 14:13 Sodium Chloride (Saline 0.9%) 1,000 mls @ 50 mls/hr IV .Q20H [facility] Last Admin: 10/22/19 08:51 Dose: 50 mls/hr Documented by: Ferric Sodium Gluconate 125 mg (/ Sodium Chloride) 110 mls @ 100 mls/hr IVPB DAILY [facility] Last Admin: 10/22/19 15:27 Dose: 100 mls/hr Documented by: Lactated Ringer's (Lactated Ringers) 1,000 mls @ 20 mls/hr IV .Q24H [facility] Last Admin: 10/22/19 15:27 Dose: 20 mls/hr Documented by: Cefazolin Sodium 2 gm/ Sodium (Chloride) 50 mls @ 100 mls/hr IVPB ONCE ONE Stop: 10/23/19 09:29 Insulin Aspart (Novolog) 0 unit SQ [facility]; Protocol Last Admin: 10/22/19 17:17 Dose: Not Given Documented by: Insulin Detemir (Levemir) 10 unit SQ [facility] Last Admin: 10/21/19 21:16 Dose: 10 unit Documented by: Miscellaneous Information (Coumadin Per Pharmacy) 0 each MISCELLANE DIRECTED PRN PRN Reason: Per Protocol Pravastatin Sodium (Pravachol) 40 mg PO [facility] Last Admin: 10/21/19 21:16 Dose: 40 mg Documented by: Sodium Bicarbonate (Sodium Bicarbonate Tab) 1,300 mg PO BID [facility] Last Admin: 10/22/19 08:50 Dose: 1,300 mg Documented by: Tamsulosin HCl (Flomax) 0.4 mg PO BID [facility] Last Admin: 10/22/19 08:50 Dose: 0.4 mg Documented by: Physical examination: VITAL SIGNS: 97.5, 79, 17, 135/68, 98% room air GENERAL: Sitting of age of the bed, awake. EYES: Pupils equal. Conjunctiva normal. HEENT: External appearance of nose and ears normal, oral cavity grossly normal. NECK: JVD not raised; masses not palpable. HEART: First and second heart sounds are normal; no edema. LUNGS: Respiratory rate normal; clear to auscultation. ABDOMEN: Soft, nontender, liver spleen not palpable, no masses palpable. PSYCH: Able to answer simple questionsl. INVESTIGATIONS, reviewed in the clinical context: White count 3.1 hemoglobin 8.4 platelets 73 pressure 4.2 bun 63 creatinine 6.6 to pro time 13.3 Lab work from [facility] shows: White count 4.4 hemoglobin 8.7 platelets 86 sodium 136 potassium 4.5 INR 1.29 bun 68 creatinine 6.5 Computed tomography scan of the abdomen shows stone in the left ureter distally and also renal pelvic stone. Assessment: -Left ureteral stone distal proximal to the left ureter junction -Renal nephrolithiasis -Acute on chronic kidney disease advanced with uremic symptoms patient will need renal replacement therapy-slow to respond -Chronic kidney disease stage V -Metabolic acidosis from renal failure -Normocytic anemia likely secondary to chronic kidney disease -Thrombocytopenia -Diabetes mellitus type 2 chronically on insulin -BPH -Coronary artery disease -Moderate cognitive impairment probably from late onset Alzheimer's dementia -COPD -Essential hypertension -Hyperlipidemia -Primary osteoarthritis Plan: Sulfa the patient this morning. Due for dialysis catheter placement this afternoon. Discussed with Dr. San from urology. Though the left ureter stone was not felt to be contributing images treatment of the acute kidney injury a to have some contribution though. Hence patient will have intervention by Dr. San tomorrow. Continue with IV fluids.
[2019-10-22 20:24] LABS: Glucose,Whole Blood 167 mg/dL (75-99)
[2019-10-22] MEDS: DONEPEZIL 10 MG TAB PO SCH (20:43)
[2019-10-22] MEDS: PRAVASTATIN SODIUM 40 MG TAB PO SCH (20:43)
[2019-10-22] MEDS: INSULIN DETEMIR (LEVEMIR) 100 UNIT/ML SYR SQ SCH (21:31)
[2019-10-23] MEDS: METOPROLOL TARTRATE 25 MG TAB PO SCH ×3 (02:59→21:35)
[2019-10-23] MEDS: SODIUM CHLORIDE 0.9% 1,000 ML IV SCH ×2 (03:00→23:44)
[2019-10-23 06:57] LABS: Glucose,Whole Blood 88 mg/dL (75-99)
[2019-10-23 08:02] LABS: Calcium 7.7 mg/dL (8.4-10.2); Potassium 3.6 mmol/L (3.5-5.1)
[2019-10-23 08:06] LABS: INR 1.4 (<1.2); Prothrombin Time 13.7 sec (9.0-12.0)
[2019-10-23 08:15] LABS: Anisocytosis Slight; HCT 25.4 % (39.0-53.0); HGB 8.5 gm/dL (13.0-17.5); MCH 29.1 pg (25.0-35.0); MCHC 33.2 g/dL (31.0-37.0); MCV 87.4 fL (80.0-100.0); Mean Platelet Volume 9.6; RBC 2.91 m/uL (4.30-5.90)
[2019-10-23 08:18] LABS: Platelet Count 55 k/uL (150-450)
[2019-10-23 09:23] LABS: Eosinophils # (M) 0.03 k/uL (0-0.7); Lymphocytes # (M) 0.42 k/uL (1.0-4.8); Monocytes # (M) 0.36 k/uL (0-1.0); Neutrophils # (M) 2.19 k/uL (1.3-7.7); Neutrophils % (M) 73 %; Nucleated Red Blood Cells 0 /100 WBC (0-0); Total Cells Counted 100
[2019-10-23 09:24] LABS: Poikilocytosis (M) Present
[2019-10-23] MEDS ORDERED: SODIUM CHLORIDE 0.9% 1,000 ML IV ONE (09:30)
[2019-10-23] MEDS: INSULIN ASPART (NovoLOG) 100 UNIT/ML VIAL SQ SCH ×4 (09:41→21:31)
--- NOTE | 2019-10-23 10:07 | CONS ---
CONSULTATION This is a 79-year-old gentleman who has acute on chronic renal failure with high BUN and creatinine. I was consulted for placement of urgent dialysis catheter. MEDICAL HISTORY: Includes a history of chronic kidney disease, COPD, hyperlipidemia, coronary artery disease, diabetes mellitus, hypertension. SOCIAL HISTORY: Denies any smoking. SURGICAL HISTORY: Patient had back surgery, cholecystectomy, coronary artery bypass graft done in the past. PHYSICAL EXAMINATION: Patient was seen. NECK: Supple. Trachea central. CHEST: Clear to auscultation. ABDOMEN: Soft. Femoral pulses are present. Normal motor function noted. PLAN: Placement of the dialysis catheter. Risks and complications of bleeding, infection, thrombosis has been discussed. Thank you very much for the consultation. MMODL / IJN: [id number] /
--- NOTE | 2019-10-23 10:10 | PCN ---
PROCEDURE NOTE PREOP DIAGNOSIS: Acute on chronic renal failure. POSTOP DIAGNOSIS: Acute on chronic renal failure. PROCEDURE PERFORMED: Ultrasound-guided dialysis catheter placed right jugular approach. SEDATION: Time is 20 minutes. DESCRIPTION OF PROCEDURE: The patient brought to the labor utilization superintendent. Right side of the chest and neck was prepped and drapes applied in usual sterile manner. 1% lidocaine infiltrated. Ultrasound-guided micropuncture needle right jugular vein. Micropuncture guidewire was passed. After that, we passed a regular guidewire and then dilator was advanced on the top of the guidewire. The guidewire was parked at the inferior vena cava. A tunnel was created. Through the tunnel, we brought the dialysis catheter. We introduced the sheath under fluoroscopy control. Through the sheath we introduced the dialysis catheter. Sheath was removed. The tip of the catheter in superior vena cava at the junction. Flushed with heparin saline and hep-locked and incision was closed with Vicryl and nylon. Dressing applied. Patient tolerated the procedure well. MMODL / IJN: [id number] /
[2019-10-23] MEDS ORDERED: fentaNYL (PF) 50 MCG/ML 2 ML AMP ONE (10:17)
[2019-10-23] MEDS ORDERED: SUCCINYLCHOLINE CHLORIDE 100 MG/5 ML SYR IV ONE (10:17)
[2019-10-23] MEDS ORDERED: PROPOFOL 10 MG/ML 20 ML VIAL IV ONE (10:17)
[2019-10-23] MEDS ORDERED: ONDANSETRON 4 MG/2 ML VIAL ONE (10:17)
[2019-10-23] MEDS ORDERED: NEOSTIGMINE 1 MG/ML 10 ML VIAL ONE (10:17)
[2019-10-23] MEDS ORDERED: LIDOCAINE 1% INJ 10MG/ML (20 ML MDV) ONE (10:17)
[2019-10-23] MEDS ORDERED: ePHEDrine SULFATE/0.9% NACL/PF 50 MG/5 ML SYRINGE IV ONE (10:17)
[2019-10-23] MEDS ORDERED: GLYCOPYRROLATE 0.2 MG/ML 2 ML VIAL ONE (10:17)
[2019-10-23] MEDS ORDERED: IOPAMIDOL-370 50ML BTL MISCELLANE ONE (10:44)
[2019-10-23 11:59] LABS: Glucose,Whole Blood 84 mg/dL (75-99)
--- NOTE | 2019-10-23 12:00 | P.OP ---
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 His serum creatinine level ranged between 3.3 and 3.9 from September 2018 through June 2019. I have seen him in the past in the office, and he is known to have bilateral renal cysts. He presented to yesterday with left flank discomfort, which she states has been present for several months. He is a vague historian. A computed tomography scan of the abdomen and pelvis without contrast performed on 10/16/2019 revealed a an 11 mm left renal pelvic calculus and a 7 mm left mid pole calculus. Additionally, there was evidence of minimal left hydronephrosis, apparently due to a 2 mm left distal ureteral calculus. No right-sided calculi were seen. Unfortunately, the CD disc sent with him at transfer does not display the images. A renal ultrasound performed earlier today shows no evidence of hydronephrosis. Operative Findings: 1) No ureteral calculi 2) Dilated left upper pole calyx, possibly due to infundibular calculus. 3) 2 left renal calculi, fragmented completely. Description of Procedure: The patient was taken to the operating room and placed in the dorsolithotomy position, with legs supported in Krzysztof stirrups. The external genitalia was prepped and draped sterilely. The 30 lens was used to introduce the 19-H[place]er Stortz cystoscopic sheath through the urethra and into the bladder under direct vision. The prostatic urethra showed evidence of moderate obstructing lateral lobe enlargement. The bladder was examined in its entirety. The ureteral orifices appeared normal. No tumors were seen. Several small calculi were seen. Using a 10-[place] Konger cone-tipped catheter, a left retrograde pyelogram was performed. The course of the ureter was seen on fluoroscopy. Mild J hooking of the distal ureter was noted. No calculi were seen within the ureter. The ureter was essentially normal in caliber. The left upper pole collecting system was dilated. The renal pelvis otherwise appeared normal. The [employer] semirigid ureteroscope was advanced into the bladder under direct vision. The left ureteral orifice was cannulated. The ureteroscope was advanced a short distance, showing no calculi. The ureter diminished in caliber, such that the ureteroscope could not be advanced further. A 0.038 inch Glidewire was passed through the ureteroscope and up to the left renal pelvis. The ureteroscope was removed, and an 11/13-Hong Konger ureteral access catheter was passed over the wire, up to the mid ureter. The Olympus mini flexible ureteroscope was passed through the ureteral access catheter sheath and advanced under direct vision. A mucosal tear was noted proximal to the ureteral access catheter sheath. The ureteroscope was advanced through the lumen and into the left renal pelvis. With N/A an upper pole infundibulum a calculus was identified. The 200 micron Holmium laser probe was passed through the ureteroscope, and lithotripsy was performed primarily utilizing a dusting technique. After fragmenting this calculus, the ureteroscope was advanced into a dilated calyx, where a second calculus was seen. Lithotripsy was again performed, and continued until there were no residual calculus fragments exceeding 1-2 mm in size. The remaining calyces were inspected, but no additional calculi were seen. The Glidewire was passed through the ureteroscope, which was then removed along with the ureteral access catheter sheath under direct vision. The Glidewire was backloaded into the cystoscope, which was passed into the bladder. A 26 cm, 6-Hong Konger double-J ureteral stent was placed over the wire. Proper stent positioning was verified fluoroscopically and endoscopically. The bladder was emptied and the cystoscope removed. The patient tolerated the procedure well and was taken to the recovery room in stable condition. Optinuity Report: Procedure Acuity: Semi-Urgent Stone Size and Location: 11 mm left upper pole infundibulum, 7 mm upper pole calyx Ureteral Dilation: No Ureteral Access Sheath Used: Yes Stone Sent for Analysis: No All Stones/Fragments Were Removed with a Basket: No Complications: No Preoperative Antibiotics Given: Yes Stent Placed: Yes If Stent Placed, Was String Left Attached: No If Stent Placed, When is it to be Removed: 1 month
--- NOTE | 2019-10-23 12:15 | FL ---
FLUOROSCOPY 20 seconds of fluoroscopy time were utilized during left ureteral stone removal and stent placement. 6 images document the procedure.
[2019-10-23] MEDS: LACTATED RINGERS 1,000 ML IV SCH (13:15)
[2019-10-23] MEDS: SODIUM BICARBONATE TAB 650 MG TAB PO SCH ×2 (13:17→21:30)
[2019-10-23] MEDS: ALLOPURINOL 100 MG TAB PO SCH (13:17)
[2019-10-23] MEDS: CALCITRIOL 0.25 MCG CAP PO SCH (13:17)
[2019-10-23] MEDS: SODIUM FERRIC GLUCONAT-SUCROSE 125 MG in SODIUM CHLORIDE 0.9% 100 ML IVPB SCH (13:17)
[2019-10-23] MEDS: TAMSULOSIN 0.4 MG CAP.ER.24H PO SCH ×2 (13:17→21:30)
[2019-10-23] MEDS: HYDROmorphone 0.5 MG/0.5 ML SYRINGE IVP PRN (15:31)
[2019-10-23 17:03] LABS: Glucose,Whole Blood 81 mg/dL (75-99)
[2019-10-23] MEDS ORDERED: WARFARIN 5 MG TAB PO ONE (18:00)
[2019-10-23] MEDS ORDERED: IPRATROPIUM-ALBUTEROL 3 ML NEB INHALATION PRN (18:16)
[2019-10-23] MEDS ORDERED: ALLOPURINOL 100 MG TAB PO SCH (18:30)
--- NOTE | 2019-10-23 18:54 | P.PN ---
Progress Note - Text Progress Note Date: 10/23/19 Chief Complaint: Left flank pain History of presenting complaint: This is a pleasant 79-year-old patient of Dr. Greenberg. Reticulocyte stable medical conditions include hypertension, chronic kidney disease, COPD, hyperlipidemia, coronary artery disease, diabetes, osteoarthritis, cognitive impairment, erectile dysfunction. He should not presented to [place] [facility]. With left flank feeling weak. Radiological studies done there showed the left distal ureter stone just proximal to the UVJ junction and also stone in the renal pelvis. Patient was sent down here for urological evaluation. Also was found to have graciously worsening renal function with the bun of 68 and creatinine was 6.5. Patient not the best of historians. Does feel tired and rundown. Consultation was made to urology and nephrology. Patient does take Coumadin which was held. Plan is for her dialysis catheter replaced hopefully tomorrow. Denies any chest pain or palpitation. No fever no chills. Appetite is somewhat okay. Admitted with-left ureter stone, acute on chronic kidney disease, metabolic acidosis. Coumadin was held. IV fluids. Today-patient taken to the or. Underwent cystoscopy, left retrograde pyelogram, left ureteroscopic and laser lithotripsy, left ureter stent inserted. No left ureteral calculi was found. Postprocedure tired laying bed. Also right IJ hemodialysis catheter was placed by Dr. Mejia Review of systems: Was done for constitutional, cardiovascular, GI, pulmonary. relevant finding as above Active Medications Albuterol/Ipratropium (Duoneb 0.5 Mg-3 Mg/3 Ml Soln) 3 ml INHALATION RT-QID PRN PRN Reason: Shortness Of Breath Allopurinol (Zyloprim) 100 mg PO DAILY [facility] Last Admin: 10/23/19 13:17 Dose: 100 mg Documented by: Amlodipine Besylate (Norvasc) 10 mg PO DAILY [facility] Calcitriol (Rocaltrol) 0.25 mcg PO DAILY [facility] Last Admin: 10/23/19 13:17 Dose: 0.25 mcg Documented by: Donepezil HCl (Aricept) 10 mg PO HS [facility] Last Admin: 10/22/19 20:43 Dose: 10 mg Documented by: Hydralazine HCl (Apresoline) 100 mg PO BID [facility] Hydromorphone HCl (Dilaudid) 0.5 mg IVP Q2HR PRN PRN Reason: Pain Last Admin: 10/23/19 15:31 Dose: 0.5 mg Documented by: Sodium Chloride (Saline 0.9%) 1,000 mls @ 50 mls/hr IV .Q20H [facility] Last Admin: 10/23/19 03:00 Dose: 50 mls/hr Documented by: Ferric Sodium Gluconate 125 mg (/ Sodium Chloride) 110 mls @ 100 mls/hr IVPB DAILY [facility] Last Admin: 10/23/19 13:17 Dose: 100 mls/hr Documented by: Lactated Ringer's (Lactated Ringers) 1,000 mls @ 20 mls/hr IV .Q24H [facility] Last Admin: 10/23/19 13:15 Dose: Not Given Documented by: Insulin Aspart (Novolog) 0 unit SQ [facility]; Protocol Last Admin: 10/23/19 17:09 Dose: Not Given Documented by: Insulin Detemir (Levemir) 10 unit SQ [facility] Last Admin: 10/22/19 21:31 Dose: 10 unit Documented by: Metoprolol Tartrate (Lopressor) 25 mg PO BID [facility] Last Admin: 10/23/19 13:17 Dose: 25 mg Documented by: Miscellaneous Information (Coumadin Per Pharmacy) 0 each MISCELLANE DIRECTED PRN PRN Reason: Per Protocol Pravastatin Sodium (Pravachol) 40 mg PO [facility] Last Admin: 10/22/19 20:43 Dose: 40 mg Documented by: Sodium Bicarbonate (Sodium Bicarbonate Tab) 1,300 mg PO BID [facility] Last Admin: 10/23/19 13:17 Dose: 1,300 mg Documented by: Tamsulosin HCl (Flomax) 0.4 mg PO BID [facility] Last Admin: 10/23/19 13:17 Dose: 0.4 mg Documented by: Physical examination: VITAL SIGNS: 99, 67, 18, 167/72, 96% on room air GENERAL: Laying in bed, tired EYES: Pupils equal. Conjunctiva normal. HEENT: External appearance of nose and ears normal, oral cavity grossly normal. Right neck hemodialysis catheter NECK: JVD not raised; masses not palpable. HEART: First and second heart sounds are normal; no edema. LUNGS: Respiratory rate normal; clear to auscultation. ABDOMEN: Soft, nontender, liver spleen not palpable, no masses palpable. PSYCH: Able to answer simple questionsl. INVESTIGATIONS, reviewed in the clinical context: White count 3 hemoglobin 8.5 potassium 3.6 bun 50 creatinine 4.80 Lab work from [facility] shows: White count 4.4 hemoglobin 8.7 platelets 86 sodium 136 potassium 4.5 INR 1.29 bun 68 creatinine 6.5 Computed tomography scan of the abdomen shows stone in the left ureter distally and also renal pelvic stone. Assessment: -cystoscopy, left retrograde pyelogram, left ureteroscopic and laser lithotripsy, left ureter stent inserted. No left ureteral calculi was found. -Renal nephrolithiasis-bilateral with laser lithotripsy -Acute on chronic kidney disease advanced with uremic symptoms patient will need renal replacement therapy-slow to respond -Chronic kidney disease stage V, with hypertension -Metabolic acidosis from renal failure -Normocytic anemia likely secondary to chronic kidney disease -Thrombocytopenia -Diabetes mellitus type 2 chronically on insulin -BPH -Coronary artery disease -Moderate cognitive impairment probably from late onset Alzheimer's dementia -COPD -Essential hypertension-accelerated -Hyperlipidemia -Primary osteoarthritis Plan: -Blood pressure medications being adjusted. Getting IV fluids. Patient was hemodialyzed today. Follow
[2019-10-23] MEDS: amLODIPine 10 MG TAB PO SCH (19:51)
[2019-10-23 20:18] LABS: Glucose,Whole Blood 166 mg/dL (75-99)
[2019-10-23] MEDS: PRAVASTATIN SODIUM 40 MG TAB PO SCH (21:30)
[2019-10-23] MEDS: hydrALAZINE HCL 50 MG TAB PO SCH (21:30)
[2019-10-23] MEDS: INSULIN DETEMIR (LEVEMIR) 100 UNIT/ML SYR SQ SCH (21:30)
[2019-10-23] MEDS: DONEPEZIL 10 MG TAB PO SCH (21:30)
[2019-10-24 06:56] LABS: Glucose,Whole Blood 104 mg/dL (75-99)
[2019-10-24] MEDS: INSULIN ASPART (NovoLOG) 100 UNIT/ML VIAL SQ SCH ×4 (07:19→20:42)
[2019-10-24 09:34] LABS: INR 1.3 (<1.2); Prothrombin Time 13.3 sec (9.0-12.0)
[2019-10-24] MEDS: SODIUM BICARBONATE TAB 650 MG TAB PO SCH ×2 (09:41→20:42)
[2019-10-24] MEDS: amLODIPine 10 MG TAB PO SCH (09:41)
[2019-10-24] MEDS: ALLOPURINOL 100 MG TAB PO SCH (09:41)
[2019-10-24] MEDS: TAMSULOSIN 0.4 MG CAP.ER.24H PO SCH ×2 (09:41→20:43)
[2019-10-24] MEDS: SODIUM FERRIC GLUCONAT-SUCROSE 125 MG in SODIUM CHLORIDE 0.9% 100 ML IVPB SCH (09:41)
[2019-10-24] MEDS: hydrALAZINE HCL 50 MG TAB PO SCH ×2 (09:41→20:43)
[2019-10-24] MEDS: METOPROLOL TARTRATE 25 MG TAB PO SCH ×2 (09:41→20:43)
[2019-10-24] MEDS: CALCITRIOL 0.25 MCG CAP PO SCH (09:42)
[2019-10-24] MEDS: HYDROmorphone 0.5 MG/0.5 ML SYRINGE IVP PRN (09:46)
[2019-10-24 11:44] LABS: Glucose,Whole Blood 115 mg/dL (75-99)
[2019-10-24] MEDS: LACTATED RINGERS 1,000 ML IV SCH (12:37)
[2019-10-24 13:01] LABS: Calcium 7.7 mg/dL (8.4-10.2)
[2019-10-24 13:05] LABS: Potassium 3.8 mmol/L (3.5-5.1)
--- NOTE | 2019-10-24 16:05 | PN ---
PROGRESS NOTE Patient is seen for followup for end-stage renal disease. He has been started on dialysis. He is due for dialysis again tomorrow. The patient feels well. He denies any significant complaints. EXAMINATION: Today blood pressure is 144/77, heart rate 64 per minute, he is afebrile. Examination shows patient is euvolemic. No evidence of edema lower extremities. Abdomen is soft, nontender. ENTRY REP exam grossly intact. LAB: Show sodium 133, potassium 3.8, CO2 17, BUN 33, creatinine 3.93. ASSESSMENT: 1. End-stage renal disease, started on dialysis. The patient will be dialyzed again tomorrow. He has had two treatments, currently doing well. Awaiting outpatient chair time placement. 2. Left nephrolithiasis and hydronephrosis status post cystoscopy, left ureteral stent placement and lithotripsy. 3. Metabolic acidosis associated with chronic kidney disease, maintained on oral sodium bicarb. Expect further improvement with dialysis. 4. Anemia with iron deficiency, maintained on IV iron. 5. Chronic kidney disease mineral bone disorder. 6. Hyperphosphatemia associated with renal failure. Add phosphate binders if serum phosphate does not improve as outpatient. PLAN: Encourage increased oral intake. We will plan for hemodialysis in a.m. MMODL / IJN: [id number] /
--- NOTE | 2019-10-24 16:40 | P.PN ---
Progress Note - Text Progress Note Date: 10/24/19 Chief Complaint: Left flank pain History of presenting complaint: This is a pleasant 79-year-old patient of Dr. Greenberg. Reticulocyte stable medical conditions include hypertension, chronic kidney disease, COPD, hyperlipidemia, coronary artery disease, diabetes, osteoarthritis, cognitive impairment, erectile dysfunction. He should not presented to [place] ER. With left flank feeling weak. Radiological studies done there showed the left distal ureter stone just proximal to the UVJ junction and also stone in the renal pelvis. Patient was sent down here for urological evaluation. Also was found to have graciously worsening renal function with the bun of 68 and creatinine was 6.5. Patient not the best of historians. Does feel tired and rundown. Consultation was made to urology and nephrology. Patient does take Coumadin which was held. Plan is for her dialysis catheter replaced hopefully tomorrow. Denies any chest pain or palpitation. No fever no chills. Appetite is somewhat okay. Admitted with-left ureter stone, acute on chronic kidney disease, metabolic acidosis. Coumadin was held. IV fluids. cystoscopy-left retrograde pyelogram, left ureteroscopic and laser lithotripsy, left ureter stent inserted. No left ureteral calculi was found. Started on hemodialysis Today-feeling better today. Tolerating a diet. No pain. Received hemodialysis Review of systems: Was done for constitutional, cardiovascular, GI, pulmonary. relevant finding as above Active Medications Albuterol/Ipratropium (Duoneb 0.5 Mg-3 Mg/3 Ml Soln) 3 ml INHALATION RT-QID PRN PRN Reason: Shortness Of Breath Allopurinol (Zyloprim) 100 mg PO DAILY [facility] Last Admin: 10/24/19 09:41 Dose: 100 mg Documented by: Amlodipine Besylate (Norvasc) 10 mg PO DAILY [facility] Last Admin: 10/24/19 09:41 Dose: 10 mg Documented by: Calcitriol (Rocaltrol) 0.25 mcg PO DAILY [facility] Last Admin: 10/24/19 09:42 Dose: 0.25 mcg Documented by: Donepezil HCl (Aricept) 10 mg PO HS [facility] Last Admin: 10/23/19 21:30 Dose: 10 mg Documented by: Hydralazine HCl (Apresoline) 100 mg PO BID [facility] Last Admin: 10/24/19 09:41 Dose: 100 mg Documented by: Hydromorphone HCl (Dilaudid) 0.5 mg IVP Q2HR PRN PRN Reason: Pain Last Admin: 10/24/19 09:46 Dose: 0.5 mg Documented by: Sodium Chloride (Saline 0.9%) 1,000 mls @ 50 mls/hr IV .Q20H [facility] Last Admin: 10/23/19 23:44 Dose: 50 mls/hr Documented by: Ferric Sodium Gluconate 125 mg (/ Sodium Chloride) 110 mls @ 100 mls/hr IVPB DAILY [facility] Last Admin: 10/24/19 09:41 Dose: 100 mls/hr Documented by: Lactated Ringer's (Lactated Ringers) 1,000 mls @ 20 mls/hr IV .Q24H [facility] Last Admin: 10/24/19 12:37 Dose: Not Given Documented by: Insulin Aspart (Novolog) 0 unit SQ [facility]; Protocol Last Admin: 10/24/19 11:53 Dose: Not Given Documented by: Insulin Detemir (Levemir) 10 unit SQ [facility] Last Admin: 10/23/19 21:30 Dose: 10 unit Documented by: Metoprolol Tartrate (Lopressor) 25 mg PO BID [facility] Last Admin: 10/24/19 09:41 Dose: 25 mg Documented by: Miscellaneous Information (Coumadin Per Pharmacy) 0 each MISCELLANE DIRECTED PRN PRN Reason: Per Protocol Pravastatin Sodium (Pravachol) 40 mg PO [facility] Last Admin: 10/23/19 21:30 Dose: 40 mg Documented by: Sodium Bicarbonate (Sodium Bicarbonate Tab) 1,300 mg PO BID [facility] Last Admin: 10/24/19 09:41 Dose: 1,300 mg Documented by: Tamsulosin HCl (Flomax) 0.4 mg PO BID [facility] Last Admin: 10/24/19 09:41 Dose: 0.4 mg Documented by: Warfarin Sodium (Coumadin) 5 mg PO ONCE@1800 [facility]; Protocol Stop: 10/24/19 18:01 Physical examination: VITAL SIGNS: 98.2, 65, 17, 155/64, 96% on room air GENERAL: Sitting up, comfortable EYES: Pupils equal. Conjunctiva normal. HEENT: External appearance of nose and ears normal, oral cavity grossly normal. Right neck hemodialysis catheter NECK: JVD not raised; masses not palpable. HEART: First and second heart sounds are normal; no edema. LUNGS: Respiratory rate normal; clear to auscultation. ABDOMEN: Soft, nontender, liver spleen not palpable, no masses palpable. PSYCH: Able to answer simple questionsl. INVESTIGATIONS, reviewed in the clinical context: Potassium 3.8 bun 33 creatinine 3.93 Lab work from [facility] shows: White count 4.4 hemoglobin 8.7 platelets 86 sodium 136 potassium 4.5 INR 1.29 bun 68 creatinine 6.5 Computed tomography scan of the abdomen shows stone in the left ureter distally and also renal pelvic stone. Assessment: -cystoscopy, left retrograde pyelogram, left ureteroscopic and laser lithotripsy, left ureter stent inserted. No left ureteral calculi was found. -Renal nephrolithiasis-bilateral with laser lithotripsy -Acute on chronic kidney disease advanced with uremic symptoms patient started on hemodialysis-slow to respond -Chronic kidney disease stage V, with hypertension -Metabolic acidosis from renal failure -Normocytic anemia likely secondary to chronic kidney disease -Thrombocytopenia -Diabetes mellitus type 2 chronically on insulin -BPH -Coronary artery disease -Moderate cognitive impairment probably from late onset Alzheimer's dementia -COPD -Essential hypertension-accelerated -Hyperlipidemia -Primary osteoarthritis Plan: -Blood pressure medications being adjusted. Getting IV fluids. Getting hemodialysis. Follow
[2019-10-24 17:19] LABS: Glucose,Whole Blood 123 mg/dL (75-99)
[2019-10-24] MEDS: SODIUM CHLORIDE 0.9% 1,000 ML IV SCH (17:33)
[2019-10-24] MEDS ORDERED: WARFARIN 5 MG TAB PO ONE (18:00)
--- NOTE | 2019-10-24 18:43 | P.PN ---
Progress Note - Text Progress Note Date: 10/24/19 Patient's condition is stable. He denies pain. This serum creatinine level today is improved (3.93). I do not feel that any further urologic evaluation or treatment is required at this time. He will continue to take tamsulosin. I intend to remove the ureteral stent in the office in approximately 4 weeks.
[2019-10-24 20:23] LABS: Glucose,Whole Blood 169 mg/dL (75-99)
[2019-10-24] MEDS: PRAVASTATIN SODIUM 40 MG TAB PO SCH (20:42)
[2019-10-24] MEDS: INSULIN DETEMIR (LEVEMIR) 100 UNIT/ML SYR SQ SCH (20:42)
[2019-10-24] MEDS: DONEPEZIL 10 MG TAB PO SCH (20:43)
[2019-10-25 07:21] LABS: Glucose,Whole Blood 107 mg/dL (75-99)
[2019-10-25] MEDS: INSULIN ASPART (NovoLOG) 100 UNIT/ML VIAL SQ SCH ×4 (07:33→21:35)
[2019-10-25 08:32] LABS: INR 1.5 (<1.2); Prothrombin Time 15.2 sec (9.0-12.0)
[2019-10-25] MEDS: SODIUM FERRIC GLUCONAT-SUCROSE 125 MG in SODIUM CHLORIDE 0.9% 100 ML IVPB SCH (08:40)
[2019-10-25] MEDS: TAMSULOSIN 0.4 MG CAP.ER.24H PO SCH ×2 (08:40→21:34)
[2019-10-25] MEDS: SODIUM BICARBONATE TAB 650 MG TAB PO SCH ×2 (08:40→21:34)
[2019-10-25] MEDS: amLODIPine 10 MG TAB PO SCH (08:40)
[2019-10-25] MEDS: ALLOPURINOL 100 MG TAB PO SCH (08:40)
[2019-10-25] MEDS: METOPROLOL TARTRATE 25 MG TAB PO SCH ×2 (08:40→21:34)
[2019-10-25] MEDS: hydrALAZINE HCL 50 MG TAB PO SCH ×2 (08:40→21:34)
[2019-10-25] MEDS: CALCITRIOL 0.25 MCG CAP PO SCH (08:40)
--- NOTE | 2019-10-25 09:12 | IR ---
Fluoroscopy HISTORY: Dialysis catheter placement 0.4 seconds fluoroscopy time supplied to the referring clinician. 0 intraoperative C-arm images docu ment the procedure. See dictated report from vascular surgery.
[2019-10-25 11:51] LABS: Glucose,Whole Blood 127 mg/dL (75-99)
[2019-10-25] MEDS: SODIUM CHLORIDE 0.9% 1,000 ML IV SCH ×2 (13:59→16:53)
[2019-10-25 17:02] LABS: Glucose,Whole Blood 146 mg/dL (75-99)
[2019-10-25] MEDS ORDERED: WARFARIN 5 MG TAB PO SCH (18:00)
--- NOTE | 2019-10-25 18:58 | P.PN ---
Progress Note - Text Progress Note Date: 10/25/19 Chief Complaint: Left flank pain History of presenting complaint: This is a pleasant 79-year-old patient of Dr. Greenberg. Reticulocyte stable medical conditions include hypertension, chronic kidney disease, COPD, hyperlipidemia, coronary artery disease, diabetes, osteoarthritis, cognitive impairment, erectile dysfunction. He should not presented to [place] ER. With left flank feeling weak. Radiological studies done there showed the left distal ureter stone just proximal to the UVJ junction and also stone in the renal pelvis. Patient was sent down here for urological evaluation. Also was found to have graciously worsening renal function with the bun of 68 and creatinine was 6.5. Patient not the best of historians. Does feel tired and rundown. Consultation was made to urology and nephrology. Patient does take Coumadin which was held. Plan is for her dialysis catheter replaced hopefully tomorrow. Denies any chest pain or palpitation. No fever no chills. Appetite is somewhat okay. Admitted with-left ureter stone, acute on chronic kidney disease, metabolic acidosis. Coumadin was held. IV fluids. cystoscopy-left retrograde pyelogram, left ureteroscopic and laser lithotripsy, left ureter stent inserted. No left ureteral calculi was found. Started on hemodialysis Today-f no new issues. For hemodialysis today. No pain. Review of systems: Was done for constitutional, cardiovascular, GI, pulmonary. relevant finding as above Active Medications Albuterol/Ipratropium (Duoneb 0.5 Mg-3 Mg/3 Ml Soln) 3 ml INHALATION RT-QID PRN PRN Reason: Shortness Of Breath Allopurinol (Zyloprim) 100 mg PO DAILY [facility] Last Admin: 10/25/19 08:40 Dose: 100 mg Documented by: Amlodipine Besylate (Norvasc) 10 mg PO DAILY [facility] Last Admin: 10/25/19 08:40 Dose: 10 mg Documented by: Calcitriol (Rocaltrol) 0.25 mcg PO DAILY [facility] Last Admin: 10/25/19 08:40 Dose: 0.25 mcg Documented by: Donepezil HCl (Aricept) 10 mg PO HS [facility] Last Admin: 10/24/19 20:43 Dose: 10 mg Documented by: Hydralazine HCl (Apresoline) 100 mg PO BID [facility] Last Admin: 10/25/19 08:40 Dose: 100 mg Documented by: Hydromorphone HCl (Dilaudid) 0.5 mg IVP Q2HR PRN PRN Reason: Pain Last Admin: 10/24/19 09:46 Dose: 0.5 mg Documented by: Sodium Chloride (Saline 0.9%) 1,000 mls @ 50 mls/hr IV .Q20H [facility] Last Admin: 10/25/19 16:53 Dose: 50 mls/hr Documented by: Ferric Sodium Gluconate 125 mg (/ Sodium Chloride) 110 mls @ 100 mls/hr IVPB DAILY [facility] Last Admin: 10/25/19 08:40 Dose: 100 mls/hr Documented by: Insulin Aspart (Novolog) 0 unit SQ [facility]; Protocol Last Admin: 10/25/19 17:20 Dose: 1 unit Documented by: Insulin Detemir (Levemir) 10 unit SQ [facility] Last Admin: 10/24/19 20:42 Dose: 10 unit Documented by: Metoprolol Tartrate (Lopressor) 25 mg PO BID [facility] Last Admin: 10/25/19 08:40 Dose: 25 mg Documented by: Miscellaneous Information (Coumadin Per Pharmacy) 0 each MISCELLANE DIRECTED PRN PRN Reason: Per Protocol Pravastatin Sodium (Pravachol) 40 mg PO [facility] Last Admin: 10/24/19 20:42 Dose: 40 mg Documented by: Sodium Bicarbonate (Sodium Bicarbonate Tab) 1,300 mg PO BID [facility] Last Admin: 10/25/19 08:40 Dose: 1,300 mg Documented by: Tamsulosin HCl (Flomax) 0.4 mg PO BID [facility] Last Admin: 10/25/19 08:40 Dose: 0.4 mg Documented by: Warfarin Sodium (Coumadin) 5 mg PO DAILY@1800 [facility] Last Admin: 10/25/19 17:19 Dose: 5 mg Documented by: Physical examination: VITAL SIGNS: 98.9, 61, 16, 132/68, 96% on room air GENERAL: Sitting up, comfortable EYES: Pupils equal. Conjunctiva normal. HEENT: External appearance of nose and ears normal, oral cavity grossly normal. Right neck hemodialysis catheter NECK: JVD not raised; masses not palpable. HEART: First and second heart sounds are normal; no edema. LUNGS: Respiratory rate normal; clear to auscultation. ABDOMEN: Soft, nontender, liver spleen not palpable, no masses palpable. PSYCH: Able to answer simple questionsl. INVESTIGATIONS, reviewed in the clinical context: Potassium 3.8 bun 33 creatinine 3.93 Lab work from [facility] shows: White count 4.4 hemoglobin 8.7 platelets 86 sodium 136 potassium 4.5 INR 1.29 bun 68 creatinine 6.5 Computed tomography scan of the abdomen shows stone in the left ureter distally and also renal pelvic stone. Assessment: -cystoscopy, left retrograde pyelogram, left ureteroscopic and laser lithotripsy, left ureter stent inserted. No left ureteral calculi was found. -Renal nephrolithiasis-bilateral with laser lithotripsy -Acute on chronic kidney disease advanced with uremic symptoms patient started on hemodialysis-slow to respond -Chronic kidney disease stage V, with hypertension -Metabolic acidosis from renal failure -Normocytic anemia likely secondary to chronic kidney disease -Thrombocytopenia -Diabetes mellitus type 2 chronically on insulin -BPH -Coronary artery disease -Moderate cognitive impairment probably from late onset Alzheimer's dementia -COPD -Essential hypertension-accelerated -Hyperlipidemia -Primary osteoarthritis Plan: -Blood pressure well controlled. Getting hemodialysis today. Repeat labs in the morning.
[2019-10-25 20:48] LABS: Glucose,Whole Blood 124 mg/dL (75-99)
[2019-10-25] MEDS: PRAVASTATIN SODIUM 40 MG TAB PO SCH (21:34)
[2019-10-25] MEDS: INSULIN DETEMIR (LEVEMIR) 100 UNIT/ML SYR SQ SCH (21:34)
[2019-10-25] MEDS: DONEPEZIL 10 MG TAB PO SCH (21:34)
[2019-10-25] MEDS: HYDROmorphone 0.5 MG/0.5 ML SYRINGE IVP PRN (21:35)
--- NOTE | 2019-10-25 21:43 | PN ---
PROGRESS NOTE Patient is seen for followup for end-stage renal disease. He has been started on dialysis this admission, currently doing well. He is scheduled for possible discharge today. He will follow up at the [place] outpatient unit. On examination today, blood pressure was 132/68, heart rate 61 per minute. Patient is afebrile. EXAMINATION OF THE HEART: S1 and S2. ABDOMEN: Examination of the abdomen reveals it to be soft, obese, non-tender. Examination of lower extremities shows no significant edema. Labs are not available from today. ASSESSMENT: 1. End-stage renal disease, started on dialysis, maintained on a Friday, Friday, Friday schedule. Patient will follow up at the [place] unit on a Friday, Friday, Friday schedule. 2. Left nephrolithiasis, status post left ureteral stent placement and lithotripsy. 3. Chronic kidney disease mineral bone disorder. 4. Hyperphosphatemia associated with renal failure. Add phosphate binders if the patient remains hyperphosphatemic as outpatient. 5. Metabolic acidosis, maintained on oral sodium bicarb. Expect further improvement with ongoing renal replacement therapy. PLAN: Patient can be discharged. Follow up as outpatient at the outpatient dialysis unit in [place]. MMODL / IJN: [id number] /
[2019-10-26 07:45] LABS: INR 1.7 (<1.2); Prothrombin Time 16.4 sec (9.0-12.0)
[2019-10-26 07:46] LABS: Calcium 7.7 mg/dL (8.4-10.2); Potassium 3.4 mmol/L (3.5-5.1)
[2019-10-26 07:59] LABS: Glucose,Whole Blood 99 mg/dL (75-99)
[2019-10-26] MEDS: INSULIN ASPART (NovoLOG) 100 UNIT/ML VIAL SQ SCH ×2 (08:13→11:51)
[2019-10-26 08:17] VITALS: BP 165/73; PULSE 78; RESP 16; TEMP 98.8
[2019-10-26] MEDS: hydrALAZINE HCL 50 MG TAB PO SCH (08:54)
[2019-10-26] MEDS: CALCITRIOL 0.25 MCG CAP PO SCH (08:54)
[2019-10-26] MEDS: METOPROLOL TARTRATE 25 MG TAB PO SCH (08:54)
[2019-10-26] MEDS: ALLOPURINOL 100 MG TAB PO SCH (08:54)
[2019-10-26] MEDS: TAMSULOSIN 0.4 MG CAP.ER.24H PO SCH (08:54)
[2019-10-26] MEDS: amLODIPine 10 MG TAB PO SCH (08:54)
[2019-10-26] MEDS: SODIUM BICARBONATE TAB 650 MG TAB PO SCH (08:55)
[2019-10-26] MEDS: SODIUM FERRIC GLUCONAT-SUCROSE 125 MG in SODIUM CHLORIDE 0.9% 100 ML IVPB SCH (09:16)
[2019-10-26 09:43] VITALS: BMI 33.7
[2019-10-26 11:47] LABS: Glucose,Whole Blood 111 mg/dL (75-99)
--- NOTE | 2019-10-26 15:55 | PN ---
PROGRESS NOTE Patient is seen for followup for end-stage renal disease. He is currently doing well. Patient denies any significant complaints. He is scheduled on a Friday, Friday, Friday schedule and will be going to the [facility]. PHYSICAL EXAMINATION: On examination today, blood pressure 165/73, heart rate 78 per minute, he is afebrile. Examination shows patient is euvolemic. No evidence of edema bilateral lower extremities. Breath sounds are heard bilaterally. Abdomen is soft, nontender. ROOF ASSEMBLER exam grossly intact. LABS: Show sodium 135, potassium 3.4, chloride 101, BUN 25, creatinine 3.76. ASSESSMENT: 1. End-stage renal disease, on hemodialysis on a Friday, Friday, Friday schedule. 2. Hypokalemia, to be replaced. 3. Iron deficiency status, post IV iron. 4. Left nephrolithiasis, status post left ureteral stent placement and lithotripsy. 5. Metabolic acidosis maintained on oral sodium bicarb. PLAN: Patient can be discharged. Follow up for dialysis as outpatient at [facility] tomorrow. MMODL / IJN: [id number] /
--- NOTE | 2019-10-26 20:39 | P.DS ---
Providers Date of admission: 10/20/19 21:03 Expected date of discharge: 10/26/19 Attending physician: Meliton Be Consults: 10/20/19 22:18 Consult Physician Routine Consulting Provider: Be Kwon Consult Reason/Comments: kassidy Do you want consulting provider notified?: Yes Placement Type Exists?: Yes 10/21/19 09:35 Consult Physician Routine Consulting Provider: Jus Ha Consult Reason/Comments: Left flank pain and kidney stones Do you want consulting provider notified?: Yes 10/21/19 09:46 Consult Physician Routine Consulting Provider: Isauro Whelan Consult Reason/Comments: needs permacath placement for dialysis Do you want consulting provider notified?: Yes Primary care physician: [facility] Course: Chief Complaint: Left flank pain History of presenting complaint: This is a pleasant 79-year-old patient of Dr. Greenberg. Reticulocyte stable medical conditions include hypertension, chronic kidney disease, COPD, hyperlipidemia, coronary artery disease, diabetes, osteoarthritis, cognitive impairment, erectile dysfunction. He should not presented to [place] ER. With left flank feeling weak. Radiological studies done there showed the left distal ureter stone just proximal to the UVJ junction and also stone in the renal pelvis. Patient was sent down here for urological evaluation. Also was found to have graciously worsening renal function with the bun of 68 and creatinine was 6.5. Patient not the best of historians. Does feel tired and rundown. Consultation was made to urology and nephrology. Patient does take Coumadin which was held. Plan is for her dialysis catheter replaced hopefully tomorrow. Denies any chest pain or palpitation. No fever no chills. Appetite is somewhat okay. Admitted with-left ureter stone, acute on chronic kidney disease, metabolic acidosis. Coumadin was held. IV fluids. cystoscopy-left retrograde pyelogram, left ureteroscopic and laser lithotripsy, left ureter stent inserted. No left ureteral calculi was found. Started on hemodialysis Today-stable. Received hemodialysis. Outpatient hemodialysis center. Discussed Dr. Cox. Discussed with the patient. Tolerating a diet. Consultation: Dr. Cox from nephrology Dr. San from neurology Dr. Juan Carlos Mejia from vascular surgery Physical examination: VITAL SIGNS: 98.8, 78, 16, 165/73, 95% on room air GENERAL: Sitting up, comfortable EYES: Pupils equal. Conjunctiva normal. HEENT: External appearance of nose and ears normal, oral cavity grossly normal. Right neck hemodialysis catheter NECK: JVD not raised; masses not palpable. HEART: First and second heart sounds are normal; no edema. LUNGS: Respiratory rate normal; clear to auscultation. ABDOMEN: Soft, nontender, liver spleen not palpable, no masses palpable. PSYCH: Able to answer simple questionsl. INVESTIGATIONS, reviewed in the clinical context: Potassium 3.4 INR 1.7 Lab work from [facility] shows: White count 4.4 hemoglobin 8.7 platelets 86 sodium 136 potassium 4.5 INR 1.29 bun 68 creatinine 6.5 Computed tomography scan of the abdomen shows stone in the left ureter distally and also renal pelvic stone. Assessment: -cystoscopy, left retrograde pyelogram, left ureteroscopic and laser lithotripsy, left ureter stent inserted. No left ureteral calculi was found. -Renal nephrolithiasis-bilateral with laser lithotripsy, POA -Acute on chronic kidney disease advanced with uremic symptoms patient started on hemodialysis-slow to respond -Chronic kidney disease stage V, with hypertension -Metabolic acidosis from renal failure -Normocytic anemia likely secondary to chronic kidney disease -Thrombocytopenia -Diabetes mellitus type 2 chronically on insulin -BPH -Coronary artery disease -Moderate cognitive impairment probably from late onset Alzheimer's dementia -COPD -Essential hypertension-accelerated -Hyperlipidemia -Primary osteoarthritis Disposition: Home Patient Condition at Discharge: Stable Plan - Discharge Summary Discharge Rx Participant: Yes New Discharge Prescriptions: New Sodium Bicarbonate Tab 1,300 mg PO BID #60 tab Metoprolol Tartrate [Lopressor] 25 mg PO BID #60 tab Continue Allopurinol [Zyloprim] 100 mg PO DAILY Tamsulosin HCl [Flomax] 0.4 mg PO BID amLODIPine [Norvasc] 10 mg PO DAILY Pravastatin Sodium [Pravachol] 40 mg PO HS hydrALAZINE HCL [Apresoline] 100 mg PO BID Donepezil [Aricept] 10 mg PO HS Calcitriol 0.25 mcg PO DAILY Ipratropium-Albuterol Nebulize [Duoneb 0.5 mg-3 mg/3 ml Soln] 3 ml INHALATION RT-QID PRN PRN Reason: Shortness Of Breath Changed Warfarin [Coumadin] 5 mg PO HS #0 Insulin NPH Human Isophane [humuLIN N] 12 unit SQ AC-BID #0 Discontinued Spironolactone [Aldactone] 50 mg PO DAILY Insulin NPH Human Isophane [humuLIN N] See Protocol SQ HS Discharge Medication List Allopurinol [Zyloprim] 100 mg PO DAILY 02/09/16 [History] Tamsulosin HCl [Flomax] 0.4 mg PO BID 02/09/16 [History] Pravastatin Sodium [Pravachol] 40 mg PO HS 06/30/18 [History] amLODIPine [Norvasc] 10 mg PO DAILY 06/30/18 [History] Calcitriol 0.25 mcg PO DAILY 10/20/19 [History] Donepezil [Aricept] 10 mg PO HS 10/20/19 [History] Ipratropium-Albuterol Nebulize [Duoneb 0.5 mg-3 mg/3 ml Soln] 3 ml INHALATION RT-QID PRN 10/20/19 [History] hydrALAZINE HCL [Apresoline] 100 mg PO BID 10/20/19 [History] Insulin NPH Human Isophane [humuLIN N] 12 unit SQ AC-BID #0 10/26/19 [Rx] Metoprolol Tartrate [Lopressor] 25 mg PO BID #60 tab 10/26/19 [Rx] Sodium Bicarbonate Tab 1,300 mg PO BID #60 tab 10/26/19 [Rx] Warfarin [Coumadin] 5 mg PO HS #0 10/26/19 [Rx] Follow up Appointment(s)/Referral(s): Kina Cox MD [STAFF PHYSICIAN] - 11/03/19 9:00 am (Over the phone appointment. You will receive two phone calls: one from the medical biller coder and one from the doctor.) Diony Graham MD [STAFF PHYSICIAN] - 11/19/19 9:[address] [facility], [NON-STAFF] - 1 Week Patient Instructions/Handouts: Acute Kidney Injury (DC), Peritoneal Dialysis Catheter Care (DC), Perma-cath Placement (DC) Activity/Diet/Wound Care/Special Instructions: Hemodialysis: [facility] in [place] - Mondays, Wednesdays, and Fridays at 10:00 a.m. Please arrive 30 minutes early and bring all medications and insurance cards. Per the dialysis center, drive the main strip and the center is down from [employer]. Schedule follow-up appointment with Dr. Graham in 4 weeks for office cystoscopy with ureteral stent removal. Plan of Treatment: Continue to check blood glucose levels with meals and at bedtime.
== END 2019-10-26 13:40 | disposition home health service (06) | DRG 660 ==
LOC: 4SSUR 21:03
PROVIDERS: ADMIT Hospitalist; ATTEND Hospitalist
PROC: 02HV33Z Insertion of Infusion Device into Superior Vena Cava, Percutaneous Approach (ICD-10-PCS; 2019-10-22 13:30)
PROC: 5A1D70Z Performance of Urinary Filtration, Intermittent, Less than 6 Hours Per Day (ICD-10-PCS; 2019-10-22 13:30)
PROC: 0TF48ZZ Fragmentation in Left Kidney Pelvis, Via Natural or Artificial Opening Endoscopic (ICD-10-PCS; principal; 2019-10-23 09:25)
PROC: 0T778DZ Dilation of Left Ureter with Intraluminal Device, Via Natural or Artificial Opening Endoscopic (ICD-10-PCS; principal; 2019-10-23 09:25)
PROC: BT1F1ZZ Fluoroscopy of Left Kidney, Ureter and Bladder using Low Osmolar Contrast (ICD-10-PCS; principal; 2019-10-23 09:25)
DX: N13.2 Hydronephrosis with renal and ureteral calculous obstruction (principal); E87.2 Acidosis; I12.0 Hypertensive chronic kidney disease with stage 5 chronic kidney disease or end stage renal disease; N17.9 Acute kidney failure, unspecified; D69.6 Thrombocytopenia, unspecified; D63.1 Anemia in chronic kidney disease; E83.9 Disorder of mineral metabolism, unspecified; E11.22 Type 2 diabetes mellitus with diabetic chronic kidney disease; E83.39 Other disorders of phosphorus metabolism; N18.5 Chronic kidney disease, stage 5; G30.1 Alzheimer's disease with late onset; F02.80 Dementia in other diseases classified elsewhere, unspecified severity, without behavioral disturbance, psychotic disturbance, mood disturbance, and anxiety; J44.9 Chronic obstructive pulmonary disease, unspecified; Z99.2 Dependence on renal dialysis; Z79.4 Long term (current) use of insulin; Z11.59 Encounter for screening for other viral diseases; E66.9 Obesity, unspecified; N28.1 Cyst of kidney, acquired; E87.6 Hypokalemia; D50.9 Iron deficiency anemia, unspecified; N40.0 Benign prostatic hyperplasia without lower urinary tract symptoms; I25.10 Atherosclerotic heart disease of native coronary artery without angina pectoris; E78.5 Hyperlipidemia, unspecified; M19.91 Primary osteoarthritis, unspecified site; I25.2 Old myocardial infarction; N52.9 Male erectile dysfunction, unspecified; Z68.33 Body mass index [BMI] 33.0-33.9, adult; Z79.01 Long term (current) use of anticoagulants; Z79.899 Other long term (current) drug therapy; Z90.49 Acquired absence of other specified parts of digestive tract; Z95.1 Presence of aortocoronary bypass graft; Z87.891 Personal history of nicotine dependence; Z88.8 Allergy status to other drugs, medicaments and biological substances; Z91.048 Other nonmedicinal substance allergy status
CPT/HCPCS: 36558; 71045; 74018; 74420; 76770; 76937; 77001; 80048; 80074; 81001; 82728; 83540; 83550; 83735; 84100; 85025; 85610; 87086; 87635; 90935

== ENCOUNTER 2019-12-31 18:47 | Inpatient (IN) | payer MEDICARE, BC ==
[2019-12-31] MEDS ORDERED: ACETAMINOPHEN TAB 325 MG TAB PO PRN (19:07)
[2019-12-31] MEDS ORDERED: NALOXONE 0.4 MG/ML 1 ML VIAL IV PRN (19:07)
[2019-12-31] MEDS ORDERED: diphenhydrAMINE 25 MG CAP PO STA (19:14)
--- NOTE | 2019-12-31 19:18 | ED ---
General Adult HPI - General Chief complaint: Fall Stated complaint: Fall Time Seen by Provider: 12/31/19 18:59 Source: patient, RN notes reviewed, old records reviewed Mode of arrival: ambulatory Limitations: no limitations - History of Present Illness Initial comments: 79-year-old male presenting as transfer from [facility] with fall and left hip intertrochanteric fracture. Patient was transferred for orthopedic evaluation. He has history of end-stage renal disease and is on Coumadin. He did have minor head trauma, head CT was obtained prior to transfer this was negative for intracranial hemorrhage or mass effect. X-ray of the hip and pelvis revealed a left IT hip fracture. Patient was transferred for orthopedic evaluation. Patient states he tripped on his way into dialysis. - Related Data Home Medications Medication Instructions Recorded Confirmed Tamsulosin HCl [Flomax] 0.4 mg PO BID 02/09/16 10/20/19 allopurinoL [Zyloprim] 100 mg PO DAILY 02/09/16 10/20/19 Pravastatin Sodium [Pravachol] 40 mg PO HS 06/30/18 10/20/19 amLODIPine [Norvasc] 10 mg PO DAILY 06/30/18 10/20/19 Donepezil [Aricept] 10 mg PO HS 10/20/19 10/20/19 Ipratropium-Albuterol Nebulize 3 ml INHALATION RT-QID PRN 10/20/19 10/20/19 [Duoneb 0.5 mg-3 mg/3 ml Soln] calcitrioL [Calcitriol] 0.25 mcg PO DAILY 10/20/19 10/20/19 hydrALAZINE HCL [Apresoline] 100 mg PO BID 10/20/19 10/20/19 Previous Rx's Medication Instructions Recorded Insulin NPH Human Isophane 12 unit SQ AC-BID #0 10/26/19 [humuLIN N] Metoprolol Tartrate [Lopressor] 25 mg PO BID #60 tab 10/26/19 Sodium Bicarbonate Tab 1,300 mg PO BID #60 tab 10/26/19 Warfarin [Coumadin] 5 mg PO HS #0 10/26/19 Allergies Allergy/AdvReac Type Severity Reaction Status Date / Time hyper immune syrum from Allergy Unknown Uncoded 10/20/19 21:56 horses Childhood Review of Systems ROS Statement: Those systems with pertinent positive or pertinent negative responses have been documented in the HPI. ROS Other: All systems not noted in ROS Statement are negative. Past Medical History Past Medical History: Atrial Fibrillation, COPD, Dementia, Diabetes Mellitus, Hyperlipidemia, Hypertension, Myocardial Infarction ([place]) Last Myocardial Infarction Date:: unsure History of Any Multi-Drug Resistant Organisms: None Reported Past Surgical History: Back Surgery, Cholecystectomy, Coronary Bypass/CABG, Heart Catheterization Past Anesthesia/Blood Transfusion Reactions: No Reported Reaction Past Psychological History: No Psychological Hx Reported Past Alcohol Use History: None Reported Past Drug Use History: None Reported General Exam Limitations: no limitations General appearance: alert, in no apparent distress Head exam: Present: atraumatic, normocephalic Eye exam: Present: normal appearance, PERRL ENT exam: Present: normal exam Neck exam: Present: normal inspection. Absent: tenderness Respiratory exam: Present: normal lung sounds bilaterally. Absent: respiratory distress Cardiovascular Exam: Present: regular rate, normal rhythm GI/Abdominal exam: Present: soft. Absent: distended, tenderness, guarding Extremities exam: Present: other (Left leg, etc. rotated, distal pulses intact, normal sensation, pain with range of motion of the left hip.) Neurological exam: Present: alert, oriented X3, CN II-XII intact. Absent: motor sensory deficit Psychiatric exam: Present: normal affect, normal mood Skin exam: Present: warm, dry Course Vital Signs 12/31/19 12/31/19 18:51 19:01 Temperature 98.2 F Pulse Rate 77 Respiratory 18 Rate Blood Pressure 134/68 O2 Sat by Pulse 98 Oximetry Medical Decision Making - Medical Decision Making 71-year-old male with left intertrochanteric hip fracture transferred for orthopedic evaluation. Patient will have preoperative laboratory testing completed, these results are pending. CBC, CMP, PT/INR, type and screen. Nephrology and internal medicine had been placed on consult. Case is discussed with orthopedics, Dr. Melchor who will admit. Disposition Clinical Impression: Fall, Fracture, intertrochanteric, left femur Disposition: ADMITTED IP TO THIS [facility] Condition: Stable Is patient prescribed a controlled substance at d/c from ED?: No Referrals: Dereck Greenberg MD [Primary Care Provider] - 1-2 days Decision to Admit Reason: Admit from EC Decision Date: 12/31/19 Decision Time: 19:18
[2019-12-31 19:55] LABS: Basophils % (A) 0 %; Eosinophils # (A) 0.1 k/uL (0-0.7); Eosinophils % (A) 1 %; HGB 11.2 gm/dL (13.0-17.5); Lymphocytes # (A) 0.5 k/uL (1.0-4.8); Lymphocytes % (A) 7 %; MCH 30.5 pg (25.0-35.0); MCHC 34.9 g/dL (31.0-37.0); MCV 87.3 fL (80.0-100.0); Mean Platelet Volume 9.5; Monocytes # (A) 1.2 k/uL (0-1.0); Monocytes % (A) 16 %; Neutrophils # (A) 5.7 k/uL (1.3-7.7); Neutrophils % (A) 74 %; RBC 3.67 m/uL (4.30-5.90); RDW 13.9 % (11.5-15.5); WBC 7.7 k/uL (3.8-10.6)
[2019-12-31 19:58] LABS: Platelet Count 75 k/uL (150-450)
[2019-12-31 19:59] LABS: INR 1.1 (<1.2); Prothrombin Time 11.6 sec (9.0-12.0)
[2019-12-31 20:09] LABS: Calcium 8.5 mg/dL (8.4-10.2); Magnesium 1.9 mg/dL (1.6-2.3); Potassium 3.7 mmol/L (3.5-5.1)
--- NOTE | 2019-12-31 20:21 | XR ---
EXAMINATION TYPE: XR chest 1V portable DATE OF EXAM: 12/31/2019 COMPARISON: 10/22/2019 HISTORY: Preop. Hip fracture. TECHNIQUE: 2 views FINDINGS: There is no heart failure nor confluent pneumonic infiltrate. There is dual-lumen right toby tral venous catheter with tip in the superior vena cava. There are sternal wires. Costophrenic angles are clear. IMPRESSION: No active cardiopulmonary disease.
[2019-12-31] MEDS ORDERED: IPRATROPIUM-ALBUTEROL 3 ML NEB INHALATION PRN (20:38)
[2019-12-31] MEDS ORDERED: WARFARIN 3 MG TAB PO ONE (22:00)
[2019-12-31] MEDS: PRAVASTATIN SODIUM 40 MG TAB PO SCH (22:39)
[2019-12-31] MEDS: traMADol 50 MG TAB PO SCH (22:40)
[2019-12-31] MEDS: DONEPEZIL 10 MG TAB PO SCH (22:41)
[2019-12-31 23:55] LABS: Glucose,Whole Blood 154 mg/dL (75-99)
[2019-12-31] MEDS: INSULIN ASPART (NovoLOG) 100 UNIT/ML VIAL SQ SCH (23:58)
--- NOTE | 2020-01-01 03:01 | CONS ---
CONSULTATION DATE OF SERVICE: 12/31/2019 REASON FOR CONSULTATION: Regarding COPD and other medical issues requested by Dr. Melchor and medical clearance. HISTORY OF PRESENT ILLNESS: This 79-year-old gentleman with a past history of atrial fibrillation, COPD, dementia, history of chronic renal failure, diabetes mellitus, is being followed by Dr. Greenberg and Dr. Cox in the outpatient setting, is receiving hemodialysis Friday, Friday, Friday. The patient lost his footing and the patient fell down and suffered left hip fracture and admitted for evaluation and treatment. T here is no history of chest pain. No palpitations. No headache, loss of consciousness, seizures. The previous exercise tolerance appears to be excellent. PAST MEDICAL HISTORY: Atrial fibrillation, COPD, dementia, diabetes, hypertension, hyperlipidemia. MEDICATIONS: Home medications are reviewed and include Ultram, K-Dur, Coumadin, Flomax. sodium bicarb, Pravachol, Lopressor, insulin NPH, Apresoline, calcitriol, Norvasc, zyloprim, Aricept. FAMILY HISTORY: No history of heart attacks or strokes in the family. SOCIAL HISTORY: Previous history of smoking no current smoking. No alcohol intake. REVIEW OF SYSTEMS: ENT No history of diminished hearing or vision. CARDIOVASCULAR No angina or palpitations. RESPIRATORY No cough, no hemoptysis. GI No nausea, vomiting, or diarrhea. No dysuria or hematuria. NERVOUS As mentioned earlier. ALLERGY/IMMUNOLOGY No asthma or hayfever. MUSCULOSKELETAL As mentioned earlier. HEMATOLOGY/ONCOLOGY Negative. ENDOCRINE No history of diabetes or hypothyroidism. CONSTITUTIONAL As mentioned earlier. DERMATOLOGY Negative. RHEUMATOLOGY Negative, PSYCHIATRY As mentioned earlier. PHYSICAL EXAMINATION: Pulse 78, blood pressure 130/70, respiration 18, temperature 98.2, pulse ox 98% on room air. HEENT: Conjunctivae normal. Oral mucosa moist. NECK: No jugular venous distention. No lymph node enlargement. CARDIOVASCULAR: S1, S2, muffled. No S3, no S4, RESPIRATORY: Diminished breath sounds at the bases. A few scattered rhonchi, no crackles. ABDOMEN: Soft, nontender. LEGS: No edema, no swelling. NERVOUS SYSTEM: Higher functions mentioned earlier. Moves all four limbs. No focal motor or sensory deficits. LYMPHATICS: No lymph node in neck or axilla. SKIN: No rash. JOINTS: No active deforming arthropathy. LABS: WBC 7.2, hemoglobin 11.2, platelets 75. Sodium 134, and creatinine 3.42, and INR is 1.1. ASSESSMENT: 1. Status post left hip fracture and fall. 2. Chronic kidney disease, end-stage renal disease on hemodialysis. 3. Hyponatremia. 4. Anemia, normocytic anemia of kidney disease. 5. Thrombocytopenia, mild. 6. History of atrial fibrillation. 7. Chronic obstructive pulmonary disease. 8. Dementia. 9. Diabetes mellitus type 2. 10.Hypertension. 11.Hyperlipidemia. 12.Myocardial infarction. 13.History of back surgery. 14.History of coronary artery disease, coronary artery bypass graft. 15.Cholecystectomy. 16.FULL CODE. RECOMMENDATIONS AND DISCUSSION: In this 79-year-old gentleman who presented after surgery had multiple medical issues but overall the patient is medically stable. The patient is medically cleared because of the multiple complex medical issues. Otherwise, we will discuss the patient about it and I will optimize the bronchodilators and control the blood sugars and continue the previous medications, DVT prophylaxis. Incentive spirometry. Also recommend nephrology and Cardiology consultation. We will follow the patient closely with you. Thank you, Dr. Melchor, for letting us participate in the care of this patient. MMODL / IJN: [id number] / NICOLLE
[2020-01-01] MEDS: HYDROmorphone 0.5 MG/0.5 ML SYRINGE IVP PRN ×2 (04:58→09:51)
[2020-01-01 06:59] LABS: Glucose,Whole Blood 164 mg/dL (75-99)
[2020-01-01] MEDS: amLODIPine 10 MG TAB PO SCH (08:18)
[2020-01-01] MEDS: TAMSULOSIN 0.4 MG CAP.ER.24H PO SCH ×2 (08:18→21:59)
[2020-01-01] MEDS: PANTOPRAZOLE 40 MG/10 ML VIAL IVP SCH (08:18)
[2020-01-01] MEDS: POTASSIUM CHLORIDE ER 20 MEQ TAB.ER PO SCH ×2 (08:18→21:59)
[2020-01-01] MEDS: SODIUM BICARBONATE TAB 650 MG TAB PO SCH ×2 (08:18→21:59)
[2020-01-01] MEDS: METOPROLOL TARTRATE 25 MG TAB PO SCH ×2 (08:18→21:59)
[2020-01-01] MEDS: allopurinoL 100 MG TAB PO SCH (08:18)
[2020-01-01] MEDS: hydrALAZINE HCL 50 MG TAB PO SCH ×2 (08:18→21:59)
[2020-01-01] MEDS: IPRATROPIUM-ALBUTEROL 3 ML NEB INHALATION SCH ×3 (08:59→18:51)
[2020-01-01 09:15] LABS: Basophils # (A) 0.1 k/uL (0-0.2); Basophils % (A) 1 %; Eosinophils # (A) 0.1 k/uL (0-0.7); Eosinophils % (A) 1 %; HCT 30.5 % (39.0-53.0); HGB 9.9 gm/dL (13.0-17.5); Lymphocytes # (A) 0.6 k/uL (1.0-4.8); Lymphocytes % (A) 7 %; MCH 28.8 pg (25.0-35.0); MCHC 32.5 g/dL (31.0-37.0); MCV 88.5 fL (80.0-100.0); Mean Platelet Volume 8.6; Monocytes # (A) 1.5 k/uL (0-1.0); Monocytes % (A) 17 %; Neutrophils # (A) 6.2 k/uL (1.3-7.7); Neutrophils % (A) 71 %; RBC 3.45 m/uL (4.30-5.90); RDW 14.3 % (11.5-15.5); WBC 8.8 k/uL (3.8-10.6)
[2020-01-01 09:18] LABS: Platelet Count 83 k/uL (150-450)
--- NOTE | 2020-01-01 09:32 | PN ---
PROGRESS NOTE DATE OF SERVICE: 01/01/2020 This 79-year-old gentleman who was admitted with left hip fracture is being closely monitored. Patient complains of severe pain. Patient also chronically on hemodialysis. No chest pain, no palpitation. The basic labs are noted. Creatinine is 3.42, potassium 3.7, which is normal. PAST MEDICAL: Reviewed. REVIEW OF SYSTEMS: CARDIOVASCULAR: No angina. RESPIRATORY: As mentioned earlier. GI: No nausea. : As mentioned earlier. NERVOUS SYSTEM: No numbness or weakness. CURRENT MEDICATIONS: 1. Tylenol. 2. DuoNeb. 3. Zyloprim. 4. Norvasc. 5. Rocaltrol. 6. Aricept. 7. Apresoline. 8. Dilaudid. 9. NovoLog. 10.Narcan. 11.Protonix. 12.K-Dur. 13.Pravachol. 14.Ultram. 15.Coumadin. PHYSICAL EXAMINATION: Patient is alert, oriented x3. Pulse 73, blood pressure 118/70, respiration 18, temperature 98.2, pulse ox 97% on room air. HEENT: Conjunctivae normal. Oral mucosa moist. NECK: No jugular venous distention. No lymph node enlargement. CARDIOVASCULAR: S1, S2, muffled. No S3, no S4, RESPIRATORY: Diminished breath sounds at the bases. No rhonchi, no crackles. ABDOMEN: Soft, nontender. LEGS: Status post left hip fracture. NERVOUS SYSTEM: No focal motor or sensory deficits. LAB: Hemoglobin 11.2, platelets 75. ASSESSMENT: 1. Status post left hip fracture and fall. 2. Chronic kidney disease, end-stage renal disease on hemodialysis Friday, Friday, Friday. 3. Hyponatremia. 4. Anemia, normocytic anemia of chronic kidney disease. 5. Thrombocytopenia mild. 6. History of atrial fibrillation. 7. Chronic obstructive pulmonary disease. 8. Dementia. 9. Diabetes mellitus type 2. 10.Hypertension. 11.Hyperlipidemia. 12.History of myocardial infarction. 13.History of back surgery. 14.History of coronary artery disease, coronary artery bypass graft. 15.Cholecystectomy. 16.FULL CODE. RECOMMENDATIONS AND DISCUSSION: I recommend to continue current medications, symptomatic treatment. Otherwise, cleared for orthopedic Surgery. Continue hemodialysis. Monitor lytes. Monitor CBC. Guarded prognosis. Further recommendations to follow. MMODL / IJN: [id number] /
--- NOTE | 2020-01-01 09:52 | P.HPOR ---
<Terra Ochoa Aracelis - Last Filed: 01/01/20 09:40> History of Present Illness H&P Date: 01/01/20 Chief Complaint: Left hip fracture The patient is a very pleasant 79-year-old male with a past medical history including A. fib, COPD, dementia, diabetes, hypertension, and hyperlipidemia presented to [facility] via transfer from [facility] for treatment of a left hip fracture. The patient states that he was heading to the hospital for a doctor's appointment for his left knee and he fell in his own driveway at home. He had immediate left hip pain and was unable to ambulate. Upon evaluation at [facility] he was found to have a intertrochanteric fracture of the left hip and was transferred to [facility] for orthopedic surgical intervention. He states he did hit his head and a head CT was completed at [facility]. No other injuries reported. Today, the p atient states that he is having pain in the left hip this morning and has not had pain medication for a while. He has been seen by internal medicine and cardiology is on consult for surgical clearance. Nephrology is also consulted. He is currently NPO for surgery at noon today. Review of Systems Constitutional: Denies chills, Denies fever Cardiovascular: Denies chest pain, Denies shortness of breath Respiratory: Denies cough Gastrointestinal: Denies abdominal pain, Denies diarrhea, Denies nausea, Denies vomiting Musculoskeletal: left: hip pain, hip stiffness, hip swelling Past Medical History Past Medical History: Atrial Fibrillation, COPD, Dementia, Diabetes Mellitus, Hyperlipidemia, Hypertension, Myocardial Infarction ([place]) Last Myocardial Infarction Date:: unsure History of Any Multi-Drug Resistant Organisms: None Reported Past Surgical History: Back Surgery, Cholecystectomy, Coronary Bypass/CABG, Heart Catheterization Past Anesthesia/Blood Transfusion Reactions: No Reported Reaction Past Psychological History: No Psychological Hx Reported Smoking Status: Former smoker Past Alcohol Use History: None Reported Past Drug Use History: None Reported Medications and Allergies Home Medications Medication Instructions Recorded Confirmed Type Tamsulosin HCl [Flomax] 0.4 mg PO BID 02/09/16 12/31/19 History allopurinoL [Zyloprim] 100 mg PO DAILY 02/09/16 12/31/19 History Pravastatin Sodium [Pravachol] 40 mg PO HS 06/30/18 12/31/19 History amLODIPine [Norvasc] 10 mg PO DAILY 06/30/18 12/31/19 History Donepezil [Aricept] 10 mg PO HS 10/20/19 12/31/19 History calcitrioL [Calcitriol] 0.25 mcg PO DAILY 10/20/19 12/31/19 History hydrALAZINE HCL [Apresoline] 100 mg PO BID 10/20/19 12/31/19 History Metoprolol Tartrate [Lopressor] 25 mg PO BID #60 tab 10/26/19 12/31/19 Rx Sodium Bicarbonate Tab 1,300 mg PO BID #60 tab 10/26/19 12/31/19 Rx Warfarin [Coumadin] 5 mg PO HS #0 10/26/19 12/31/19 Rx Insulin NPH Human Isophane See Protocol SQ AC-BID 12/31/19 12/31/19 History [humuLIN N] Potassium Chloride ER [K-Dur 20] 20 meq PO BID 12/31/19 12/31/19 History traMADol HCL 50 mg PO HS 12/31/19 12/31/19 History Allergies Allergy/AdvReac Type Severity Reaction Status Date / Time hyper immune syrum from Allergy Unknown Uncoded 10/20/19 21:56 horses Childhood Physical Examination The patient is a 79 year old male that is no acute distress. He is alert and o riented x3. The patient's head is normocephalic and atraumatic. Exam of the cervical spine reveals no pain upon palpation or range of motion. Exam of the bilateral upper extremities reveal no obvious deformities or pain upon range of motion. Exam of the right lower extremity reveals no pain upon palpation. Exam of the left lower extremity reveals a externally rotated and shortened leg. No pain upon palpation to the lateral hip. There is pain upon logrolling and any range of motion of the leg. Bilateral calves are soft and nontender. Patient has good foot and ankle motion bilaterally. Neurological and circulatory status is intact. Results - Labs Labs: Abnormal Lab Results - Last 24 Hours (Table) 12/31/19 12/31/19 12/31/19 Range/Units 19:35 19:35 23:52 RBC 3.67 L (4.30-5.90) m/uL Hgb 11.2 L (13.0-17.5) gm/dL Hct 32.0 L (39.0-53.0) % Plt Count 75 L (150-450) k/uL Lymphocytes # 0.5 L (1.0-4.8) k/uL Monocytes # 1.2 H (0-1.0) k/uL Sodium 134 L (137-145) mmol/L Chloride 95 L (98-107) mmol/L BUN 21 H (9-20) mg/dL Creatinine 3.42 H (0.66-1.25) mg/dL Glucose 129 H (74-99) mg/dL POC Glucose (mg/dL) 154 H (75-99) mg/dL 01/01/20 01/01/20 Range/Units 06:57 08:27 RBC 3.45 L (4.30-5.90) m/uL Hgb 9.9 L (13.0-17.5) gm/dL Hct 30.5 L (39.0-53.0) % Plt Count 83 L (150-450) k/uL Lymphocytes # 0.6 L (1.0-4.8) k/uL Monocytes # 1.5 H (0-1.0) k/uL Sodium (137-145) mmol/L Chloride (98-107) mmol/L BUN (9-20) mg/dL Creatinine (0.66-1.25) mg/dL Glucose (74-99) mg/dL POC Glucose (mg/dL) 164 H (75-99) mg/dL H & H 12/31/19 01/01/20 Range/Units 19:35 08:27 Hgb 11.2 L 9.9 L (13.0-17.5) gm/dL Hct 32.0 L 30.5 L (39.0-53.0) % Coagulation 12/31/19 Range/Units 19:35 INR 1.1 (<1.2) Result Diagrams: 01/01/20 08:27 12/31/19 19:35 - Diagnostic results Hip x-ray: image reviewed (Outside x-rays of the left hip revealed a intertrochanteric fracture) Assessment and Plan (1) A-fib Current Visit: Yes Status: Acute Code(s): I48.91 - UNSPECIFIED ATRIAL FIBRILLATION SNOMED Code(s): 43300988 (2) COPD (chronic obstructive pulmonary disease) Current Visit: Yes Status: Acute Code(s): J44.9 - CHRONIC OBSTRUCTIVE PULMONARY DISEASE, UNSPECIFIED SNOMED Code(s): 17606232 (3) Dementia Current Visit: Yes Status: Acute Code(s): F03.90 - UNSPECIFIED DEMENTIA WITHOUT BEHAVIORAL DISTURBANCE SNOMED Code(s): 60606625 (4) Diabetes mellitus Current Visit: Yes Status: Acute Code(s): E11.9 - TYPE 2 DIABETES MELLITUS WITHOUT COMPLICATIONS SNOMED Code(s): 24858613 (5) Hypertension Current Visit: Yes Status: Acute Code(s): I10 - ESSENTIAL (PRIMARY) HYPERTENSION SNOMED Code(s): 31628273 (6) Hyperlipidemia Current Visit: Yes Status: Acute Code(s): E78.5 - HYPERLIPIDEMIA, UNSPECIFIED SNOMED Code(s): 50924809 (7) Fall Current Visit: Yes Status: Acute Code(s): W19.XXXA - UNSPECIFIED FALL, INITIAL ENCOUNTER SNOMED Code(s): 3356247 (8) Fracture, intertrochanteric, left femur Current Visit: Yes Status: Acute Code(s): S72.142A - DISPLACED IN TERTROCHANTERIC FRACTURE OF LEFT FEMUR, INIT SNOMED Code(s): 120513590 Plan: The clinical and x-ray findings were discussed with the patient. No family is at the bedside at this time. The case was discussed at length with Dr. Melchor. The patient will remain NPO and on bed rest until surgical intervention later this morning. The patient is scheduled for a closed reduction with insertion of short IT nail. The procedure was discussed with the patient and he would like to proceed with surgical intervention. We will await surgical clearance from cardiology. Continue pain control with IV Dilaudid as needed. We will continue to follow patient closely and make further recommendations as needed. <Karel Melchor - Last Filed: 01/01/20 13:50> Results - Labs Labs: Abnormal Lab Results - Last 24 Hours (Table) 12/31/19 12/31/19 12/31/19 Range/Units 19:35 19:35 23:52 RBC 3.67 L (4.30-5.90) m/uL Hgb 11.2 L (13.0-17.5) gm/dL Hct 32.0 L (39.0-53.0) % Plt Count 75 L (150-450) k/uL Lymphocytes # 0.5 L (1.0-4.8) k/uL Monocytes # 1.2 H (0-1.0) k/uL Sodium 134 L (137-145) mmol/L Chloride 95 L (98-107) mmol/L BUN 21 H (9-20) mg/dL Creatinine 3.42 H (0.66-1.25) mg/dL Glucose 129 H (74-99) mg/dL POC Glucose (mg/dL) 154 H (75-99) mg/dL 01/01/20 01/01/20 01/01/20 Range/Units 06:57 08:27 11:19 RBC 3.45 L (4.30-5.90) m/uL Hgb 9.9 L (13.0-17.5) gm/dL Hct 30.5 L (39.0-53.0) % Plt Count 83 L (150-450) k/uL Lymphocytes # 0.6 L (1.0-4.8) k/uL Monocytes # 1.5 H (0-1.0) k/uL Sodium (137-145) mmol/L Chloride (98-107) mmol/L BUN (9-20) mg/dL Creatinine (0.66-1.25) mg/dL Glucose (74-99) mg/dL POC Glucose (mg/dL) 164 H 173 H (75-99) mg/dL H & H 12/31/19 01/01/20 Range/Units 19:35 08:27 Hgb 11.2 L 9.9 L (13.0-17.5) gm/dL Hct 32.0 L 30.5 L (39.0-53.0) % Coagulation 12/31/19 Range/Units 19:35 INR 1.1 (<1.2) Result Diagrams: 01/01/20 08:27 12/31/19 19:35 Assessment and Plan Plan: Discussed with ERIC Ochoa and agree with above. Patient was subsequently seen and examined by me. S: The patient states that he is unsure of exactly how he fell. He denies an tecedent hip pain. His is present at bedside and provides additional history. She states that he was getting up after dialysis and fell. She also reports that he is somewhat confused at the moment. He localizes the pain to the left hip and denies other identified injuries. He does not typically use a cane or walker for ambulation assistance. He had been off his Coumadin recently because he was scheduled to get a fistula for dialysis. O: Focused musculoskeletal examination left lower extremity reveals no ecchymosis, abrasions or open wounds around the left hip. Appropriate tenderness to palpation. The limb rests in a shortened and externally rotated position. The calf is soft and nontender. Intact gross motor function with intact active dorsiflexion and plantarflexion. Light touch sensation is subjectively normal throughout the lower extremity. Imaging: Mildly displaced left intertrochanteric femur fracture with small displaced lesser trochanteric fragment. Minimal comminution. A: 1. Displaced left intertrochanteric femur fracture status post fall on 12/31/19. 2. Chronic kidney disease on hemodialysis. 3. Multiple medical comorbidities: Diabetes, COPD, atrial fibrillation P: I discussed the diagnosis and radiographic findings with the patient and his . We reviewed the pertinent anatomy and pathophysiology of the fracture. We discussed treatment options and I explained the rationale behind surgical intervention. I recommended operative treatment in the form of closed reduction and cephalomedullary nailing. We discussed the surgical plan as well as the expected postoperative course. Risks and benefits were reviewed including (but not limited to) the risks of infection, bleeding, blood clots, anesthesia related complications and possible need for additional surgery. Questions were invited and answered. They expressed understanding and wished to proceed with surgery. Thank you for allowing me to participate in the care of this patient. Karel Melchor D.O. [facility]
[2020-01-01 11:21] LABS: Glucose,Whole Blood 173 mg/dL (75-99)
--- NOTE | 2020-01-01 12:13 | P.CRDCN ---
History of Present Illness Consult date: 01/01/20 Consult reason: pre-op evaluation History of present illness: The patient is a 79-year-old male with past medical history of coronary artery disease status post CABG in 2002, persistent atrial fibrillation, type 2 diabetes, chronic kidney disease, hypertension, and dyslipidemia, who presented to the hospital after a fall. He states he lost his footing and fell on his left hip. He initially was taken to [facility], however x-ray showed intertrochanteric fracture of the left hip and he was transferred to [facility]. According to ER note, he did hit his head and computed tomography scan was negative for acute process. Consult today as requested for preoperative clearance. The patient previously followed in the office with Dr. Hickman, however he has not been seen since October 2018. At that time he was seeking preoperative clearance and subsequently underwent stress testing and echocardiogram. Lexiscan in October 2018 was negative for reversible defect or stress-induced arrhythmia. Fixed inferior wall defect was noted. Echocardiogram revealed LV function at 50% with mild mitral regurgitation and mild to moderate tricuspid regurgitation. PAST MEDICAL HISTORY: End-stage chronic kidney disease on dialysis, CAD status post CABG, hypertension, dyslipidemia, persistent atrial fibrillation, left anterior fasc icular block, dementia REVIEW OF SYSTEMS: No fever or chills. No cough or expectoration. No diaphor esis. Patient denies headache, dizziness, blurred vision, double vision. Patient denies any stomach discomfort. No nausea, vomiting. No hematochezia. No hematemesis. Denies any black stools or blood in his stools. Denies dysuria or hematuria. No muscle weakness or numbness. No shortness of breath. No chest discomfort. Positive for joint discomfort. PHYSICAL EXAMINATION: This is a 79-year-old male in no apparent distress at the time of my examination. HEENT: Head is atraumatic, normocephalic. Pupils are equal, round. Sclerae anicteric. Conjunctivae are clear. Mucous membranes of the mouth are moist. Neck is supple. There is no jugular venous distention. No carotid bruit is heard. CHEST EXAMINATION: Expiratory wheezes on auscultation.No chest wall tenderness is noted on palpation or with deep breathing. HEART EXAMINATION: Heart regular rate and rhythm. S1, S2 heard. No murmurs, gallops or rub. ABDOMEN: Soft, nontender. Bowel sounds are heard. No organomegaly noted. EXTREMITIES: 2+ peripheral pulses with no evidence of peripheral edema and no calf tenderness noted. NEUROLOGIC EXAMINATION: Patient is awake, alert and oriented x2. LABORATORY DATA: WBC 8.8, hemoglobin 9.9, hematocrit 30.5, platelet 83, sodium 134, potassium 3.7, BUN 21, creatinine 3.42, magnesium 1.9, BNP 5690. VITAL SIGNS: Blood pressure 118/71, SpO2 97 on room air, respiratory rate 18, pulse 82, temperature 98.2 EKG: Persistent atrial fibrillation with incomplete right bundle-branch block and left anterior fascicular block. Impaired to previous echocardiogram; no changes. FINAL ASSESSMENT AND PLAN: #1 anterior trochanteric left hip fracture, #2 history of coronary artery disease status post CABG #3 persistent atrial fibrillation, anticoagulated on warfarin #4 chronic kidney disease, on hemodialysis #5 hypertension. #6 dyslipidemia #7 elevated BNP, on dialysis PLAN: We will continue current cardiac medications. Patient is cleared to proceed with elective procedure. Resume anticoagulation as recommended by surgeon. Patient should follow up with Dr. Hickman outpatient. Past Medical History Past Medical History: Atrial Fibrillation, COPD, Dementia, Diabetes Mellitus, Hyperlipidemia, Hypertension, Myocardial Infarction (ID) Last Myocardial Infarction Date:: unsure History of Any Multi-Drug Resistant Organisms: None Reported Past Surgical History: Back Surgery, Cholecystectomy, Coronary Bypass/CABG, Heart Catheterization Past Anesthesia/Blood Transfusion Reactions: No Reported Reaction Past Psychological History: No Psychological Hx Reported Smoking Status: Former smoker Past Alcohol Use History: None Reported Past Drug Use History: None Reported Medications and Allergies Home Medications Medication Instructions Recorded Confirmed Type Tamsulosin HCl [Flomax] 0.4 mg PO BID 02/09/16 12/31/19 History allopurinoL [Zyloprim] 100 mg PO DAILY 02/09/16 12/31/19 History Pravastatin Sodium [Pravachol] 40 mg PO HS 06/30/18 12/31/19 History amLODIPine [Norvasc] 10 mg PO DAILY 06/30/18 12/31/19 History Donepezil [Aricept] 10 mg PO HS 10/20/19 12/31/19 History calcitrioL [Calcitriol] 0.25 mcg PO DAILY 10/20/19 12/31/19 History hydrALAZINE HCL [Apresoline] 100 mg PO BID 10/20/19 12/31/19 History Metoprolol Tartrate [Lopressor] 25 mg PO BID #60 tab 10/26/19 12/31/19 Rx Sodium Bicarbonate Tab 1,300 mg PO BID #60 tab 10/26/19 12/31/19 Rx Warfarin [Coumadin] 5 mg PO HS #0 10/26/19 12/31/19 Rx Insulin NPH Human Isophane See Protocol SQ AC-BID 12/31/19 12/31/19 History [humuLIN N] Potassium Chloride ER [K-Dur 20] 20 meq PO BID 12/31/19 12/31/19 History traMADol HCL 50 mg PO HS 12/31/19 12/31/19 History Allergies Allergy/AdvReac Type Severity Reaction Status Date / Time hyper immune syrum from Allergy Unknown Uncoded 10/20/19 21:56 horses Childhood Physical Exam Vitals: Vital Signs Temp Pulse Pulse Resp BP BP Pulse Ox 01/01/20 09:10 80 01/01/20 09:00 80 01/01/20 05:31 98.2 F 82 18 118/71 97 12/31/19 21:17 97.8 F 77 16 108/55 99 12/31/19 20:14 78 18 135/79 98 12/31/19 19:01 98.2 F 12/31/19 18:51 77 18 134/68 98 Intake and Output 12/31/19 01/01/20 01/01/20 22:59 06:59 14:59 Output Total 50 Balance -50 Output: Urine 50 Other: Voiding Method Urinal Urinal # Voids 1 2 Weight 95.254 kg Results 01/01/20 08:27 12/31/19 19:35 Coagulation 12/31/19 Range/Units 19:35 PT 11.6 (9.0-12.0) sec APTT 26.0 (22.0-30.0) sec CBC 12/31/19 01/01/20 Range/Units 19:35 08:27 WBC 7.7 8.8 (3.8-10.6) k/uL RBC 3.67 L 3.45 L (4.30-5.90) m/uL Hgb 11.2 L 9.9 L (13.0-17.5) gm/dL Hct 32.0 L 30.5 L (39.0-53.0) % Plt Count 75 L 83 L (150-450) k/uL Comprehensive Metabolic Panel 12/31/19 Range/Units 19:35 Sodium 134 L (137-145) mmol/L Potassium 3.7 (3.5-5.1) mmol/L Chloride 95 L (98-107) mmol/L Carbon Dioxide 26 (22-30) mmol/L BUN 21 H (9-20) mg/dL Creatinine 3.42 H (0.66-1.25) mg/dL Glucose 129 H (74-99) mg/dL Calcium 8.5 (8.4-10.2) mg/dL Current Medications Generic Name Dose Route Start Last Admin Trade Name Freq PRN Reason Stop Dose Admin Acetaminophen 650 mg 12/31/19 19:07 Tylenol Tab PO Q6HR PRN Mild Pain or Fever > 100.5 Albuterol/Ipratropium 3 ml 01/01/20 08:00 01/01/20 08:59 Duoneb 0.5 Mg-3 Mg/3 Ml Soln INHALATION 3 ml RT-TID MARSHA Administration Albuterol/Ipratropium 3 ml 12/31/19 20:38 Duoneb 0.5 Mg-3 Mg/3 Ml Soln INHALATION RT-TID PRN Shortness Of Breath Or Wheezing Allopurinol 100 mg 01/01/20 09:00 01/01/20 08:18 Zyloprim PO 100 mg DAILY MARSHA Administration Amlodipine Besylate 10 mg 01/01/20 09:00 01/01/20 08:18 Norvasc PO 10 mg DAILY MARSHA Administration Calcitriol 0.25 mcg 01/01/20 09:00 01/01/20 08:19 Rocaltrol PO Not Given DAILY MARSHA Donepezil HCl 10 mg 12/31/19 22:00 12/31/19 22:41 Aricept PO 10 mg HS MARSHA Administration Hydralazine HCl 100 mg 01/01/20 09:00 01/01/20 08:18 Apresoline PO 100 mg BID MARSHA Administration Hydromorphone HCl 0.5 mg 12/31/19 19:07 01/01/20 09:51 Dilaudid IVP 0.5 mg Q3HR PRN Administration Moderate Pain Insulin Aspart 0 unit 01/01/20 07:30 07/24/20 23:58 Novolog SQ 1 unit ACHS MARSHA Administration Protocol Metoprolol Tartrate 25 mg 01/01/20 09:00 01/01/20 08:18 Lopressor PO 25 mg BID MARSHA Administration Miscellaneous Information 1 each 01/01/20 07:18 Coumadin Per Pharmacy MISCELLANE DIRECTED PRN Per Protocol Naloxone HCl 0.2 mg 12/31/19 19:07 Narcan IV Q2M PRN Opioid Reversal Pantoprazole Sodium 40 mg 01/01/20 09:00 01/01/20 08:18 Protonix IVP 40 mg DAILY MARSHA Administration Potassium Chloride 20 meq 01/01/20 09:00 01/01/20 08:18 K-Dur 20 PO 20 meq BID MARSHA Administration Pravastatin Sodium 40 mg 12/31/19 22:00 12/31/19 22:39 Pravachol PO 40 mg HS MARSHA Administration Sodium Bicarbonate 1,300 mg 01/01/20 09:00 01/01/20 08:18 Sodium Bicarbonate Tab PO 1,300 mg BID MARSHA Administration Tamsulosin HCl 0.4 mg 01/01/20 09:00 01/01/20 08:18 Flomax PO 0.4 mg BID MARSHA Administration Tramadol HCl 50 mg 12/31/19 22:00 12/31/19 22:40 Ultram PO 50 mg HS MARSHA Administration Warfarin Sodium 7.5 mg 01/01/20 18:00 Coumadin PO 01/01/20 18:01 ONCE ONE Intake and Output 12/31/19 01/01/20 01/01/20 22:59 06:59 14:59 Output Total 50 Balance -50 Output: Urine 50 Other: Voiding Method Urinal Urinal # Voids 1 2 Weight 95.254 kg 01/01/20 08:27 12/31/19 19:35
[2020-01-01] MEDS: INSULIN ASPART (NovoLOG) 100 UNIT/ML VIAL SQ SCH ×3 (12:53→22:03)
[2020-01-01] MEDS ORDERED: DARBEPOETIN ALFA 40 MCG/0.4 ML SYRINGE SQ SCH (13:00)
[2020-01-01] MEDS ORDERED: LIDOCAINE 1% INJ 10MG/ML (20 ML MDV) ONE (13:52)
[2020-01-01] MEDS ORDERED: PROPOFOL 10 MG/ML 20 ML VIAL IV ONE (13:52)
[2020-01-01] MEDS ORDERED: SUCCINYLCHOLINE CHLORIDE 100 MG/5 ML SYR IV ONE (13:52)
[2020-01-01] MEDS ORDERED: ceFAZolin 1,000 MG VIAL ONE (13:52)
[2020-01-01] MEDS ORDERED: fentaNYL (PF) 50 MCG/ML 2 ML AMP ONE (13:52)
[2020-01-01] MEDS ORDERED: ONDANSETRON 4 MG/2 ML VIAL ONE (13:52)
[2020-01-01] MEDS ORDERED: PHENYLEPHRINE-0.9% NACL SYG 1 MG/10 ML SYRINGE ONE (13:52)
[2020-01-01] MEDS ORDERED: IV FLUID CONTINUATION 1,000 ML IV ONE ×2 (13:52)
[2020-01-01] MEDS ORDERED: DEXAMETHASONE SOD PHOSPHATE 10 MG/ML 1 ML VIAL ONE (13:52)
[2020-01-01] MEDS ORDERED: HYDROmorphone (PF) 1 MG/ML ONE (13:52)
--- NOTE | 2020-01-01 14:14 | CONS ---
CONSULTATION REASON FOR CONSULT: End-stage renal disease. HISTORY OF PRESENT ILLNESS: Patient is a 79-year-old male with history of end-stage renal disease, on hemodialysis on a Friday, Friday, Friday schedule. He was admitted to the hospital with history of fall. The patient stated that he lost his balance and fell and he sustained a fracture of the left hip. He is scheduled for surgery today. Typically his blood pressures have not been significantly low. This did happen at the dialysis. No history of fevers, chills. No nausea, vomiting, abdominal pain or diarrhea. Patient denies any previous fractures. He is currently being cleared by Cardiology for surgery today. PAST MEDICAL HISTORY: End-stage renal disease, hypertension, COPD, type 2 diabetes, atrial fibrillation, NM. PAST SURGICAL HISTORY: Back surgery, cholecystectomy, coronary artery bypass surgery, cardiac catheterization. SOCIAL HISTORY: Negative for smoking, drug abuse or alcohol abuse. MEDICATIONS: Medications at home included Flomax, Zyloprim, Pravachol, Norvasc, Aricept, calcitriol, hydralazine, Lopressor, sodium bicarb, Coumadin, potassium, tramadol. ALLERGIES: HYPERIMMUNE SERUM FROM HORSES. REVIEW OF SYSTEMS: As per HPI. Other systems negative. PHYSICAL EXAMINATION: Patient is comfortable, awake, alert, oriented x3, not in any acute distress. Blood pressure was 118/71, heart rate 82 per minute, he is afebrile. Examination of the heart S1, S2. Examination of the lungs, bilateral breath sounds are heard. Abdomen is soft, nontender. Examination of lower extremities shows no evidence of edema. RELAY ASSEMBLER exam grossly intact. LAB: Show sodium 134, potassium 3.7, chloride 95, BUN 21, creatinine 3.42, hemoglobin 11.2 g/dL. ASSESSMENT: 1. End-stage renal disease, on hemodialysis on a Friday, Friday, Friday schedule. 2. Anemia of chronic disease. We will maintain patient on Aranesp. 3. Status post fall and fracture of the left hip, intertrochanteric fracture, scheduled for surgery today. 4. History of dementia. 5. History of chronic obstructive pulmonary disease, currently stable. 6. History of atrial fibrillation. PLAN: Hemodialysis on January 02. Maintain patient on Aranesp as hemoglobin is slightly lower. Continue with potassium supplementation as patient's potassium remains low. Thank you for this consultation. Will continue to follow the patient with you during his hospitalization. MAGNOLIA / IJN: [id number] /
[2020-01-01] MEDS ORDERED: SODIUM CHLORIDE 0.9% 100 ML with ceFAZolin 2,000 MG IV ONE ×2 (14:38)
[2020-01-01] MEDS ORDERED: LIDOCAINE 1%-EPI 1:100,000 20 ML VIAL SQ ONE ×2 (15:43→16:27)
[2020-01-01] MEDS ORDERED: HYDROcodone/APAP 5-325MG 1 EACH TAB PO PRN (17:10)
[2020-01-01] MEDS ORDERED: HYDROcodone/APAP 7.5-325MG 1 EACH TAB PO PRN (17:10)
[2020-01-01] MEDS ORDERED: ONDANSETRON 4 MG/2 ML VIAL IVP PRN (17:10)
[2020-01-01] MEDS ORDERED: HYDROmorphone 0.5 MG/0.5 ML SYRINGE IVP PRN (17:19)
[2020-01-01] MEDS ORDERED: INSULIN ASPART (NovoLOG) 100 UNIT/ML VIAL SQ ONE (17:24)
[2020-01-01 17:26] LABS: Glucose,Whole Blood 216 mg/dL (75-99)
[2020-01-01] MEDS ORDERED: WARFARIN 7.5 MG TAB PO ONE (18:00)
--- NOTE | 2020-01-01 18:07 | XR ---
EXAMINATION TYPE: XR Hip Limited LT DATE OF EXAM: 01/01/2020 COMPARISON: NONE HISTORY: Postop hip surgery TECHNIQUE: Single view FINDINGS: There is a intramedullary maira and transverse screws fixing the fracture of the base of the femoral neck. Fragments appear in anatomic position. IMPRESSION: No complicating process seen.
[2020-01-01 18:36] LABS: Hemoglobin A1C 5.8 % (4.0-6.0)
[2020-01-01 20:36] LABS: Glucose,Whole Blood 240 mg/dL (75-99)
[2020-01-01] MEDS: PRAVASTATIN SODIUM 40 MG TAB PO SCH (21:59)
[2020-01-01] MEDS: DONEPEZIL 10 MG TAB PO SCH (21:59)
[2020-01-01] MEDS: traMADol 50 MG TAB PO SCH (22:00)
--- NOTE | 2020-01-02 05:53 | FL ---
FLUOROSCOPY 3 minutes and 13 seconds of fluoroscopy time were utilized during I am nailing of the left hip. 6 anupam ges document the procedure.
[2020-01-02 07:35] LABS: Glucose,Whole Blood 161 mg/dL (75-99)
[2020-01-02] MEDS: PANTOPRAZOLE 40 MG/10 ML VIAL IVP SCH (08:05)
[2020-01-02] MEDS: hydrALAZINE HCL 50 MG TAB PO SCH (08:06)
[2020-01-02] MEDS: POTASSIUM CHLORIDE ER 20 MEQ TAB.ER PO SCH ×2 (08:06→19:29)
[2020-01-02] MEDS: amLODIPine 10 MG TAB PO SCH (08:06)
[2020-01-02] MEDS: allopurinoL 100 MG TAB PO SCH (08:06)
[2020-01-02] MEDS: SODIUM BICARBONATE TAB 650 MG TAB PO SCH ×2 (08:06→20:12)
[2020-01-02] MEDS: METOPROLOL TARTRATE 25 MG TAB PO SCH ×2 (08:06→20:08)
[2020-01-02] MEDS: TAMSULOSIN 0.4 MG CAP.ER.24H PO SCH ×2 (08:06→20:12)
[2020-01-02] MEDS: INSULIN ASPART (NovoLOG) 100 UNIT/ML VIAL SQ SCH ×4 (08:06→20:13)
[2020-01-02 08:11] LABS: INR 2.1 (<1.2); Prothrombin Time 20.2 sec (9.0-12.0)
[2020-01-02] MEDS: IPRATROPIUM-ALBUTEROL 3 ML NEB INHALATION SCH ×3 (08:30→19:30)
[2020-01-02 08:32] LABS: Basophils % (A) 0 %; Eosinophils # (A) 0.1 k/uL (0-0.7); Eosinophils % (A) 1 %; HCT 24.6 % (39.0-53.0); Lymphocytes # (A) 0.4 k/uL (1.0-4.8); Lymphocytes % (A) 4 %; MCH 30.5 pg (25.0-35.0); MCHC 33.8 g/dL (31.0-37.0); MCV 90.1 fL (80.0-100.0); Mean Platelet Volume 8.9; Monocytes # (A) 1.8 k/uL (0-1.0); Monocytes % (A) 17 %; Neutrophils # (A) 8.1 k/uL (1.3-7.7); Neutrophils % (A) 76 %; RBC 2.73 m/uL (4.30-5.90); RDW 14.4 % (11.5-15.5); WBC 10.6 k/uL (3.8-10.6)
[2020-01-02 08:46] LABS: HGB 8.3 gm/dL (13.0-17.5)
[2020-01-02 08:47] LABS: Platelet Count 82 k/uL (150-450)
--- NOTE | 2020-01-02 08:57 | P.OP ---
Date of Procedure: 01/01/20 Preoperative Diagnosis: Displaced left intertrochanteric femur fracture Postoperative Diagnosis: Displaced left intertrochanteric femur fracture Procedure(s) Performed: Closed reduction and surgical stabilization of left intertrochanteric femur fracture with cephalomedullary nailing Implants: [employer] Intertan intertrochanteric femoral nail (short 125 nail with 105 mm interlocking lag/compression screw and a 5.0 mm x 42.5 mm distal locking screw Anesthesia: GETA Surgeon: Karel Melchor Estimated Blood Loss (ml): 150 Condition: stable Disposition: PACU Indications for Procedure: The patient is pleasant 79-year-old male who sustained a displaced left intert rochanteric femur fracture after a mechanical fall at dialysis. He was transferred to [facility] from [facility]. He was evaluated and operative treatment was recommended. Risks and benefits were discussed with the patient and his , including (but not limited to) the risks of infection, bleeding, anesthesia-related complications and blood clots. They expressed understanding and wished to proceed with surgery. Consent forms were signed. The surgical site was confirmed and marked preoperatively. Description of Procedure: The patient was brought to the operative suite by the anesthesia team. General anesthesia was administered uneventfully. The patient was transferred to the operating table and positioned supine. Both feet were secured in well-padded boots with the operative limb straight and the contralateral limb scissored and semi-extended. All bony prominences were padded in the typical fashion. Prophylactic antibiotics were administered. A time-out was performed, confirming patient identifiers, the operative side, site and procedure: all team members expressed agreement. The fracture was evaluated with intraoperative fluoroscopy. The fracture was manually reduced, confirmed on orthogonal images. The left lower extremity was then prepped and draped in a standard, sterile fashion. A small stab incision was made proximal to the greater trochanter and a guidewire was inserted. Fluoroscopy was used to localize the starting point at the tip of the greater trochanter and the wire was advanced into the proximal femur. The position was found to be suboptimal and a second wire was inserted, achieving better placement and alignment. The trochanter was noted to be somewhat comminuted. The skin incision was extended to accommodate the entry reamer, which was inserted through a tissue protector and advanced to the level of the lesser trochanter under fluoroscopic guidance. The reamer and guidewire were removed. Based on the patient's anatomy and fracture pattern, a 13 mm short nail was selected. This was attached to the insertion handle. The nail met resistance when insertion was attempted. The nail was removed and a ball-tipped guidewire was inserted. The medullary canal was sequentially reamed to 14 mm and the nail was then inserted easily. The guidewire was removed. An incision was made laterally along the proximal thigh for placement of the interlocking cephalomedullary lag/compression screw. A drill sleeve was inserted through the aiming arm and advanced to the lateral femoral cortex. A guidewire was advanced through the nail and into the femoral head. Position of the wire was confirmed on orthogonal views and adjusted to a satisfactory position. Measuring off the guidewire, a 105 mm screw was selected. The drills for both the lag and compression screws were inserted and advanced under fluoroscopic guidance. The lag screw was inserted, followed by the integrated compression screw. Traction on the leg was released. Compression was applied through the lag screw insertion cannula and compression at the fracture was confirmed on imaging. The set screw was tightened to lock the blade in place, then slightly loosened to allow for dynamic compression. The guidewire was removed. A small incision was made for the distal screw. The drill sleeve was inserted and advanced to the lateral femoral cortex. The bone was drilled & measured. A 5 mm x 42.5 mm distal cortical screw was inserted. The insertion handle and aiming arm were removed. Final x-rays were taken to confirm fracture reduction and implant position. All wounds were irrigated thoroughly with normal saline. The subcutaneous tissues were closed in layers: #1 Vicryl for the fascia; interrupted 0 Vicryl and 2-0 Vicryl sutures for the deep and superficial subcutaneous tissues. The skin was closed with simone. The operative sites were injected with local anaesthetic with epinephrine for adjunct postoperative pain control and hemostasis. Sterile dressings were applied. All sponge, needle and instrument counts were correct at the end of the procedure. The patient tolerated the procedure well. The patient was transferred to a hospital bed and transported to the recovery room in stable condition.
[2020-01-02] MEDS ORDERED: ENOXAPARIN 30 MG/0.3 ML SYRINGE SQ SCH (09:00)
--- NOTE | 2020-01-02 10:01 | P.PN ---
<Terra Ochoa - Last Filed: 01/02/20 09:56> Subjective Progress Note Date: 01/02/20 Principal diagnosis: Status post left hip IT nail This is a 79 year-old male post left hip IT nail. This is post-op day 1. The patient was evaluated at the bedside today. The patient denies nausea, vomiting, abdominal pain, shortness of breath, and chest pain this morning. He states his pain is moderately controlled at this time. The patient has not been up with physical therapy. Objective - Vital Signs Vital signs: Vital Signs Temp 97.8 F 01/02/20 05:30 Pulse 80 01/02/20 08:44 Resp 18 01/02/20 05:30 BP 116/81 01/02/20 05:30 Pulse Ox 96 01/02/20 05:30 Intake & Output 01/01/20 01/02/20 01/02/20 18:59 06:59 18:59 Intake Total 1050 350 Output Total 400 Balance 650 350 Weight 95.254 kg Intake: IV 1050 Intake, IV Titration 100 Amount ceFAZolin 2 gm In Sodium 100 Chloride 0.9% 50 ml @ 100 mls/hr IVPB Q8H [facility] Rx#: [id number] Oral 250 Output: Urine 250 Estimated Blood Loss 150 Other: Voiding Method Urinal Urinal Urinal # Voids 0 - Exam The patient does not appear in acute distress. Alert and orientated x3. Dressing is clean dry and intact. Calf is soft and nontender. Good foot and ankle motion without difficulty. Sensation and circulatory status is intact. - Labs CBC & Chem 7: 01/02/20 06:28 12/31/19 19:35 Labs: Abnormal Lab Results - Last 24 Hours (Table) 01/01/20 01/01/20 01/01/20 Range/Units 11:19 17:20 20:35 RBC (4.30-5.90) m/uL Hgb (13.0-17.5) gm/dL Hct (39.0-53.0) % Plt Count (150-450) k/uL Neutrophils # (1.3-7.7) k/uL Lymphocytes # (1.0-4.8) k/uL Monocytes # (0-1.0) k/uL PT (9.0-12.0) sec INR (<1.2) POC Glucose (mg/dL) 173 H 216 H 240 H (75-99) mg/dL 01/02/20 01/02/20 01/02/20 Range/Units 06:28 06:28 07:33 RBC 2.73 L (4.30-5.90) m/uL Hgb 8.3 L D (13.0-17.5) gm/dL Hct 24.6 L (39.0-53.0) % Plt Count 82 L (150-450) k/uL Neutrophils # 8.1 H (1.3-7.7) k/uL Lymphocytes # 0.4 L (1.0-4.8) k/uL Monocytes # 1.8 H (0-1.0) k/uL PT 20.2 H (9.0-12.0) sec INR 2.1 H (<1.2) POC Glucose (mg/dL) 161 H (75-99) mg/dL Assessment and Plan (1) A-fib Current Visit: Yes Status: Acute Code(s): I48.91 - UNSPECIFIED ATRIAL FIBRILLATION SNOMED Code(s): 45619194 (2) COPD (chronic obstructive pulmonary disease) Current Visit: Yes Status: Acute Code(s): J44.9 - CHRONIC OBSTRUCTIVE PULMONARY DISEASE, UNSPECIFIED SNOMED Code(s): 54085338 (3) Dementia Current Visit: Yes Status: Acute Code(s): F03.90 - UNSPECIFIED DEMENTIA WITHOUT BEHAVIORAL DISTURBANCE SNOMED Code(s): 30739905 (4) Diabetes mellitus Current Visit: Yes Status: Acute Code(s): E11.9 - TYPE 2 DIABETES MELLITUS W ITHOUT COMPLICATIONS SNOMED Code(s): 93050699 (5) Hypertension Current Visit: Yes Status: Acute Code(s): I10 - ESSENTIAL (PRIMARY) HYPERTENSION SNOMED Code(s): 43909387 (6) Hyperlipidemia Current Visit: Yes Status: Acute Code(s): E78.5 - HYPERLIPIDEMIA, UNSPECIFIED SNOMED Code(s): 38572828 (7) Fall Current Visit: Yes Status: Acute Code(s): W19.XXXA - UNSPECIFIED FALL, INITIAL ENCOUNTER SNOMED Code(s): 9185290 (8) Fracture, intertrochanteric, left femur Current Visit: Yes Status: Acute Code(s): S72.142A - DISPLACED INTERTROCHANTERIC FRACTURE OF LEFT FEMUR, INIT SNOMED Code(s): 006888222 Plan: 1. Continue pain control 2. Anticoagulation with Lovenox 3. Start physical therapy and ambulation, weightbearing as tolerated with a walker and assistance 4. Anticipate discharge to rehab vs. home with homecare depending on the patient's course and ambulation <Karel Melchor - Last Filed: 01/02/20 19:04> Objective - Vital Signs Vital signs: Vital Signs Temp 98.6 F 01/02/20 12:56 Pulse 88 01/02/20 13:14 Resp 20 01/02/20 12:56 BP 102/50 01/02/20 12:56 Pulse Ox 97 01/02/20 12:56 Intake & Output 01/02/20 01/02/20 01/03/20 06:59 18:59 06:59 Intake Total 350 Output Total 100 Balance 350 -100 Intake: Intake, IV Titration 100 Amount ceFAZolin 2 gm In Sodium 100 Chloride 0.9% 50 ml @ 100 mls/hr IVPB Q8H [facility] Rx#: [id number] Oral 250 Output: Urine 100 Uretheral (Spicer) 100 Other: Voiding Method Urinal Indwelling Catheter # Voids 0 - Labs CBC & Chem 7: 01/02/20 06:28 01/02/20 06:28 Labs: Abnormal Lab Results - Last 24 Hours (Table) 01/01/20 01/02/20 01/02/20 Range/Units 20:35 06:28 06:28 RBC 2.73 L (4.30-5.90) m/uL Hgb 8.3 L D (13.0-17.5) gm/dL Hct 24.6 L (39.0-53.0) % Plt Count 82 L (150-450) k/uL Neutrophils # 8.1 H (1.3-7.7) k/uL Lymphocytes # 0.4 L (1.0-4.8) k/uL Monocytes # 1.8 H (0-1.0) k/uL PT 20.2 H (9.0-12.0) sec INR 2.1 H (<1.2) Sodium (137-145) mmol/L Potassium (3.5-5.1) mmol/L Chloride (98-107) mmol/L BUN (9-20) mg/dL Creatinine (0.66-1.25) mg/dL Glucose (74-99) mg/dL POC Glucose (mg/dL) 240 H (75-99) mg/dL Calcium (8.4-10.2) mg/dL 01/02/20 01/02/20 01/02/20 Range/Units 06:28 07:33 11:06 RBC (4.30-5.90) m/uL Hgb (13.0-17.5) gm/dL Hct (39.0-53.0) % Plt Count (150-450) k/uL Neutrophils # (1.3-7.7) k/uL Lymphocytes # (1.0-4.8) k/uL Monocytes # (0-1.0) k/uL PT (9.0-12.0) sec INR (<1.2) Sodium 131 L (137-145) mmol/L Potassium 5.8 H (3.5-5.1) mmol/L Chloride 93 L (98-107) mmol/L BUN 48 H (9-20) mg/dL Creatinine 6.28 H (0.66-1.25) mg/dL Glucose 138 H (74-99) mg/dL POC Glucose (mg/dL) 161 H 172 H (75-99) mg/dL Calcium 8.2 L (8.4-10.2) mg/dL 01/02/20 Range/Units 17:01 RBC (4.30-5.90) m/uL Hgb (13.0-17.5) gm/dL Hct (39.0-53.0) % Plt Count (150-450) k/uL Neutrophils # (1.3-7.7) k/uL Lymphocytes # (1.0-4.8) k/uL Monocytes # (0-1.0) k/uL PT (9.0-12.0) sec INR (<1.2) Sodium (137-145) mmol/L Potassium (3.5-5.1) mmol/L Chloride (98-107) mmol/L BUN (9-20) mg/dL Creatinine (0.66-1.25) mg/dL Glucose (74-99) mg/dL POC Glucose (mg/dL) 187 H (75-99) mg/dL Calcium (8.4-10.2) mg/dL Assessment and Plan Plan: Patient was subsequently seen and examined by me as well. was present at bedside. Patient states the hip is 'still hurting quite a bit' when he tries to move. Well-controlled at rest. Has not been OOB yet. Dressings clean, no strikethrough. POD #1 s/p left IT fracture IMN INR is therapeutic - DC lovenox. Continue PRN pain management. Progress activity -- attempt standing at bedside (with assist and fall precautions). Begin PT. Expect dialysis tomorrow. Anticipate KARI placement. Continue present care. Karel Melchor D.O. [facility]
[2020-01-02 11:08] LABS: Glucose,Whole Blood 172 mg/dL (75-99)
--- NOTE | 2020-01-02 11:28 | P.PN ---
Subjective Progress Note Date: 01/02/20 The patient is a 79-year-old male with past medical history of coronary artery disease status post CABG in 2002, persistent atrial fibrillation, type 2 diabetes, chronic kidney disease, hypertension, and dyslipidemia, who presented to the hospital after a fall. He states he lost his footing and fell on his left hip. He initially was taken to [facility], however x-ray showed intertrochanteric fracture of the left hip and he was transferred to [facility]. According to ER note, he did hit his head and computed tomography scan was negative for acute process. We were consulter for preoperative clearance. 01/01/2020 Patient was asymptomatic from the cardiac standpoint. Positive for joint pain. Labs: WBC 8.8, hemoglobin 9.9, hematocrit 30.5, platelet 83, sodium 134, potassium 3.7, BUN 21, creatinine 3.42, magnesium 1.9, BNP 5690. Vitals: Blood pressure 118/71, SpO2 97% on room air, respiratory rate 18, pulse 82, temperature 98.2F. EKG: Persistent atrial fibrillation with incomplete right bundle branch block and left anterior fascicular block. 01/02/2020 Patient is currently resting comfortably in bed. He does report some mild hip discomfort, however it has improved since his surgery. Orthopedic team at bedside, who reports a successful surgery without complications. The patient denies any chest pain, chest pressure, palpitations, dyspnea, dizziness, or vertigo. Labs: WBC 10.6, hemoglobin 8.3, hematocrit 24.6, platelet 82. Vitals: Blood pressure 116/81, SpO2 96% on room air, respiratory rate 18, pulse 70, afebrile. GENERAL: This is a 79-year-old male in no apparent distress at the time of my examination. HEENT: Head is atraumatic, normocephalic. Pupils are equal, round. Sclerae anicteric. Conjunctivae are clear. Mucous membranes of the mouth are moist. Neck is supple. There is no jugular venous distention. No carotid bruit is heard. LUNGS: Clear to auscultation no wheezes, rales or rhonchi. No chest wall tenderness is noted on palpation or with deep breathing. HEART: Irregular rate and rhythm without murmurs, rubs or gallops. S1 and S2 heard. ABDOMEN: Soft, nontender. Bowel sounds are heard. No organomegaly noted. EXTREMITIES: No evidence of peripheral edema and no calf tenderness noted. VASCULAR: Radial and dorsalis pedis pulses palpated, no evidence of clubbing. NEUROLOGIC: Patient is awake, alert and oriented x2. At baseline. IMPRESSION: #1 anterior trochanteric left hip fracture, status post closed reduction and surgical stabilization of left femur fracture #2 history of coronary artery disease status post CABG #3 persistent atrial fibrillation, anticoagulated on warfarin #4 chronic kidney disease, on hemodialysis #5 hypertension #6 dyslipidemia #7 elevated BNP, on hemodialysis PLAN: Continue current cardiac medications. Resume warfarin when cleared by surgery. Patient will follow-up with primary urogynecology physician Dr. Hickman within the next month. No further recommendations at this time. Objective - Vital Signs Vital signs: Vital Signs Temp 97.8 F 01/02/20 05:30 Pulse 80 01/02/20 08:44 Resp 18 01/02/20 05:30 BP 116/81 01/02/20 05:30 Pulse Ox 96 01/02/20 05:30 Intake & Output 01/01/20 01/02/20 01/02/20 18:59 06:59 18:59 Intake Total 1050 350 Output Total 400 Balance 650 350 Weight 95.254 kg Intake: IV 1050 Intake, IV Titration 100 Amount ceFAZolin 2 gm In Sodium 100 Chloride 0.9% 50 ml @ 100 mls/hr IVPB Q8H [facility] Rx#: [id number] Oral 250 Output: Urine 250 Estimated Blood Loss 150 Other: Voiding Method Urinal Urinal Urinal # Voids 0 - Labs CBC & Chem 7: 01/02/20 06:28 12/31/19 19:35 Labs: Abnormal Lab Results - Last 24 Hours (Table) 01/01/20 01/01/20 01/01/20 Range/Units 11:19 17:20 20:35 RBC (4.30-5.90) m/uL Hgb (13.0-17.5) gm/dL Hct (39.0-53.0) % Plt Count (150-450) k/uL Neutrophils # (1.3-7.7) k/uL Lymphocytes # (1.0-4.8) k/uL Monocytes # (0-1.0) k/uL PT (9.0-12.0) sec INR (<1.2) POC Glucose (mg/dL) 173 H 216 H 240 H (75-99) mg/dL 01/02/20 01/02/20 01/02/20 Range/Units 06:28 06:28 07:33 RBC 2.73 L (4.30-5.90) m/uL Hgb 8.3 L D (13.0-17.5) gm/dL Hct 24.6 L (39.0-53.0) % Plt Count 82 L (150-450) k/uL Neutrophils # 8.1 H (1.3-7.7) k/uL Lymphocytes # 0.4 L (1.0-4.8) k/uL Monocytes # 1.8 H (0-1.0) k/uL PT 20.2 H (9.0-12.0) sec INR 2.1 H (<1.2) POC Glucose (mg/dL) 161 H (75-99) mg/dL 01/02/20 Range/Units 11:06 RBC (4.30-5.90) m/uL Hgb (13.0-17.5) gm/dL Hct (39.0-53.0) % Plt Count (150-450) k/uL Neutrophils # (1.3-7.7) k/uL Lymphocytes # (1.0-4.8) k/uL Monocytes # (0-1.0) k/uL PT (9.0-12.0) sec INR (<1.2) POC Glucose (mg/dL) 172 H (75-99) mg/dL
[2020-01-02] MEDS ORDERED: HYDROcodone/APAP 5-325MG 1 EACH TAB PO PRN (12:45)
[2020-01-02 13:54] LABS: Calcium 8.2 mg/dL (8.4-10.2); Potassium 5.8 mmol/L (3.5-5.1)
[2020-01-02] MEDS ORDERED: DARBEPOETIN ALFA 60 MCG/0.3 ML SYRINGE SQ SCH (14:00)
--- NOTE | 2020-01-02 14:21 | P.PN ---
Subjective Progress Note Date: 01/02/20 Principal diagnosis: This is a 71-year-old male who was recently admitted with left hip fracture and is being closely monitored. Patient states he has not been up and out of the b ed and feels very weak and unsteady. PT/OT to evaluate the patient tomorrow. Patient is maintained on dialysis Friday/Friday/Friday and will continue. Patient continues to have severe discomfort with movement and palpation of the left lower extremity. Surgical site is dry and intact. Patient is also maintained on Coumadin which was resumed and current INR today is 2.1. Hemoglobin is 8.3 with no active bleeding noted. Currently has no reports of chest pain or palpitations. Patient has intermittent shortness of breath and states this is chronic and does have oxygen at home. Patient is currently maintained on breathing treatments and will continue at this time. Objective - Vital Signs Vital signs: Vital Signs Temp 98.6 F 01/02/20 12:56 Pulse 88 01/02/20 13:14 Resp 20 01/02/20 12:56 BP 102/50 01/02/20 12:56 Pulse Ox 97 01/02/20 12:56 Intake & Output 01/01/20 01/02/20 01/02/20 18:59 06:59 18:59 Intake Total 1050 350 Output Total 400 Balance 650 350 Weight 95.254 kg Intake: IV 1050 Intake, IV Titration 100 Amount ceFAZolin 2 gm In Sodium 100 Chloride 0.9% 50 ml @ 100 mls/hr IVPB Q8H [facility] Rx#: [id number] Oral 250 Output: Urine 250 Estimated Blood Loss 150 Other: Voiding Method Urinal Urinal Urinal # Voids 0 - Exam Gen: This is a 79-year-old male sitting up in bed, awake, alert and oriented 3, well-developed, well-nourished. HEENT: Head is atraumatic, normocephalic. Pupils equal, round. Sclerae is anicteric. NECK: Supple. No JVD. No lymphadenopathy. No thyromegaly. LUNGS: Manage breath sounds bilaterally with a few scattered rhonchi and wheezing noted. No intercostal retractions. HEART: S1, S2 are muffled ABDOMEN: Soft. Bowel sounds are present. No masses. No tenderness. EXTREMITIES: No pedal edema. No calf tenderness. Left hip surgical site is dry and intact with no tingling or numbness present. Left hip tenderness upon palpation NEUROLOGICAL: Patient is awake, alert and oriented x3. A few slightly week - Labs CBC & Chem 7: 01/02/20 06:28 01/02/20 06:28 Labs: Abnormal Lab Results - Last 24 Hours (Table) 01/01/20 01/01/20 01/02/20 Range/Units 17:20 20:35 06:28 RBC (4.30-5.90) m/uL Hgb (13.0-17.5) gm/dL Hct (39.0-53.0) % Plt Count (150-450) k/uL Neutrophils # (1.3-7.7) k/uL Lymphocytes # (1.0-4.8) k/uL Monocytes # (0-1.0) k/uL PT 20.2 H (9.0-12.0) sec INR 2.1 H (<1.2) Sodium (137-145) mmol/L Potassium (3.5-5.1) mmol/L Chloride (98-107) mmol/L BUN (9-20) mg/dL Creatinine (0.66-1.25) mg/dL Glucose (74-99) mg/dL POC Glucose (mg/dL) 216 H 240 H (75-99) mg/dL Calcium (8.4-10.2) mg/dL 01/02/20 01/02/20 01/02/20 Range/Units 06:28 06:28 07:33 RBC 2.73 L (4.30-5.90) m/uL Hgb 8.3 L D (13.0-17.5) gm/dL Hct 24.6 L (39.0-53.0) % Plt Count 82 L (150-450) k/uL Neutrophils # 8.1 H (1.3-7.7) k/uL Lymphocytes # 0.4 L (1.0-4.8) k/uL Monocytes # 1.8 H (0-1.0) k/uL PT (9.0-12.0) sec INR (<1.2) Sodium 131 L (137-145) mmol/L Potassium 5.8 H (3.5-5.1) mmol/L Chloride 93 L (98-107) mmol/L BUN 48 H (9-20) mg/dL Creatinine 6.28 H (0.66-1.25) mg/dL Glucose 138 H (74-99) mg/dL POC Glucose (mg/dL) 161 H (75-99) mg/dL Calcium 8.2 L (8.4-10.2) mg/dL 01/02/20 Range/Units 11:06 RBC (4.30-5.90) m/uL Hgb (13.0-17.5) gm/dL Hct (39.0-53.0) % Plt Count (150-450) k/uL Neutrophils # (1.3-7.7) k/uL Lymphocytes # (1.0-4.8) k/uL Monocytes # (0-1.0) k/uL PT (9.0-12.0) sec INR (<1.2) Sodium (137-145) mmol/L Potassium (3.5-5.1) mmol/L Chloride (98-107) mmol/L BUN (9-20) mg/dL Creatinine (0.66-1.25) mg/dL Glucose (74-99) mg/dL POC Glucose (mg/dL) 172 H (75-99) mg/dL Calcium (8.4-10.2) mg/dL Assessment and Plan Assessment: Status post left hip fracture and fall Chronic kidney disease, end-stage renal disease on hemodialysis Friday/Friday/Friday Hyponatremia Anemia, normocytic anemia of chronic disease Thrombocytopenia, mild History of atrial fibrillation Chronic obstructive pulmonary disease Dementia Diabetes mellitus type 2 Hypertension Hyperlipidemia History of myocardial infarction History of back surgery History of coronary artery disease, CABG Cholecystectomy Full code Recomendations and discussion: Recommend continue current medications, management, and symptomatic treatment. Will continue to monitor vital signs and labs closely. We'll continue to follow along with orthopedic surgery closely Continue with Coumadin INR is 2.1 today and will repeat am labs. PT/OT to evaluate the patient tomorrow. Family at the bedside and discussed possible rehab upon discharge. Case management and social work following and working on discharge planning needs. Patient continues on sliding scale and will monitor blood sugars closely. Further recommendations to follow.
--- NOTE | 2020-01-02 15:35 | PN ---
PROGRESS NOTE Patient is seen for followup for end-stage renal disease. He was admitted to the hospital after a fall and left intertrochanteric hip fracture. Patient is status post surgery yesterday. He had closed reduction and surgical stabilization of the fracture. Currently doing fairly well, complaining of pain, but this is controlled. PHYSICAL EXAMINATION: Blood pressure is 102/50, heart rate 88 per minute. He is afebrile. Examination of the heart S1, S2. Examination of the lungs, bilateral breath sounds are heard. Abdomen is soft, nontender. Examination of lower extremities shows no significant edema. [employer] exam grossly intact. LAB: Show hemoglobin 8.3. Potassium was 3.7 on December 30. ASSESSMENT: 1. End-stage renal disease, on hemodialysis on a Friday, Friday, Friday schedule. We will arrange for hemodialysis tomorrow. 2. Anemia of chronic disease with drop in hemoglobin postoperatively. Started on Aranesp and increased to 60 mcg. 3. Chronic kidney disease mineral bone disorder. Maintained on Rocaltrol. 4. Hypertension, controlled. Blood pressure is actually on the lower side. I will discontinue the Norvasc for now and we also need to decrease the hydralazine. Goal UF about 1-1.5 L. MMODL / IJN: [id number] /
[2020-01-02 17:03] LABS: Glucose,Whole Blood 187 mg/dL (75-99)
[2020-01-02] MEDS ORDERED: WARFARIN 5 MG TAB PO ONE (18:00)
[2020-01-02] MEDS: hydrALAZINE HCL 25 MG TAB PO SCH (20:08)
[2020-01-02] MEDS: traMADol 50 MG TAB PO SCH (20:12)
[2020-01-02] MEDS: PRAVASTATIN SODIUM 40 MG TAB PO SCH (20:13)
[2020-01-02] MEDS: DONEPEZIL 10 MG TAB PO SCH (20:13)
[2020-01-02 20:15] LABS: Glucose,Whole Blood 171 mg/dL (75-99)
[2020-01-03] MEDS: IPRATROPIUM-ALBUTEROL 3 ML NEB INHALATION SCH ×3 (09:12→18:54)
[2020-01-03 09:20] LABS: Calcium 8.3 mg/dL (8.4-10.2); INR 3.2 (<1.2); Prothrombin Time 31.4 sec (9.0-12.0)
--- NOTE | 2020-01-03 09:21 | P.PN ---
<Terra Ochoa - Last Filed: 01/03/20 09:18> Subjective Progress Note Date: 01/03/20 Principal diagnosis: Status post left hip IT nail This is a 79 year-old male post left hip IT nail. This is post-op day 2. The patient was evaluated at the bedside today. The patient denies nausea, vomiting, abdominal pain, shortness of breath, and chest pain this morning. He states his pain is moderately controlled at this time. The patient has been up with physical therapy and to the commode chair. He states he experienced severe pain when getting up out of bed. The dialysis nurse was in the room during my exam setting up for dialysis today. Objective - Vital Signs Vital signs: Vital Signs Temp 98.0 F 01/02/20 19:25 Pulse 74 01/03/20 08:00 Resp 14 01/03/20 08:00 BP 97/59 01/02/20 19:25 Pulse Ox 95 01/02/20 19:25 Intake & Output 01/02/20 01/03/20 01/03/20 18:59 06:59 18:59 Output Total 100 300 Balance -100 -300 Output: Urine 100 300 Uretheral (Spicer) 100 Other: Voiding Method Indwelling Catheter Indwelling Catheter Indwelling Catheter # Bowel Movements 1 - Exam The patient does not appear in acute distress. Alert and orientated x3. Dressing is clean dry and intact. Calf is soft and nontender. Good foot and ankle motion without difficulty. Sensation and circulatory status is intact. - Labs CBC & Chem 7: 01/02/20 06:28 01/02/20 06:28 Labs: Abnormal Lab Results - Last 24 Hours (Table) 01/02/20 01/02/20 01/02/20 Range/Units 06:28 11:06 17:01 Sodium 131 L (137-145) mmol/L Potassium 5.8 H (3.5-5.1) mmol/L Chloride 93 L (98-107) mmol/L BUN 48 H (9-20) mg/dL Creatinine 6.28 H (0.66-1.25) mg/dL Glucose 138 H (74-99) mg/dL POC Glucose (mg/dL) 172 H 187 H (75-99) mg/dL Calcium 8.2 L (8.4-10.2) mg/dL 01/02/20 Range/Units 20:13 Sodium (137-145) mmol/L Potassium (3.5-5.1) mmol/L Chloride (98-107) mmol/L BUN (9-20) mg/dL Creatinine (0.66-1.25) mg/dL Glucose (74-99) mg/dL POC Glucose (mg/dL) 171 H (75-99) mg/dL Calcium (8.4-10.2) mg/dL Assessment and Plan (1) A-fib Current Visit: Yes Status: Acute Code(s): I48.91 - UNSPECIFIED ATRIAL FIBRILLATION SNOMED Code(s): 70562508 (2) COPD (chronic obstructive pulmonary disease) Current Visit: Yes Status: Acute Code(s): J44.9 - CHRONIC OBSTRUCTIVE PULMONARY DISEASE, UNSPECIFIED SNOMED Code(s): 74597958 (3) Dementia Current Visit: Yes Status: Acute Code(s): F03.90 - UNSPECIFIED DEMENTIA WITHOUT BEHAVIORAL DISTURBANCE SNOMED Code(s): 55558329 (4) Diabetes mellitus Current Visit: Yes Status: Acute Code(s): E11.9 - TYPE 2 DIABETES MELLITUS WITHOUT COMPLICATIONS SNOMED Code(s): 91510714 (5) Hypertension Current Visit: Yes Status: Acute Code(s): I10 - ESSENTIAL (PRIMARY) HYPERTENSION SNOMED Code(s): 22571263 (6) Hyperlipidemia Current Visit: Yes Status: Acute Code(s): E78.5 - HYPERLIPIDEMIA, UNSPECIFIED SNOMED Code(s): 55951938 (7) Fall Current Visit: Yes Status: Acute Code(s): W19.XXXA - UNSPECIFIED FALL, INITIAL ENCOUNTER SNOMED Code(s): 9105638 (8) Fracture, intertrochanteric, left femur Current Visit: Yes Status: Acute Code(s): S72.142A - DISPLACED INTERTROCHANTERIC FRACTURE OF LEFT FEMUR, INIT SNOMED Code(s): 574151153 Plan: 1. Continue pain control, increase to [place] 7.5 2. Anticoagulation with Coumadin 3. Continue physical therapy and ambulation, weightbearing as tolerated with a walker and assistance 4. Anticipate discharge to [facility] once his pain is better controlled. <Karel Melchor - Last Filed: 01/04/20 10:55> Objective - Vital Signs Vital signs: Vital Signs Temp 99.5 F 01/04/20 05:00 Pulse 76 01/04/20 05:00 Resp 20 01/04/20 05:00 BP 132/62 01/04/20 10:27 Pulse Ox 96 01/04/20 05:00 Intake & Output 01/03/20 01/04/20 01/04/20 18:59 06:59 18:59 Intake Total 200 1200 Output Total 2550 400 Balance -2350 800 Intake: Oral 200 1200 Output: Urine 1050 400 Hemodialysis 1500 Other: Voiding Method Indwelling Catheter Indwelling Catheter # Voids 0 # Bowel Movements 1 - Labs CBC & Chem 7: 01/04/20 07:40 01/04/20 07:40 Labs: Abnormal Lab Results - Last 24 Hours (Table) 01/03/20 01/03/20 01/03/20 Range/Units 13:49 16:50 20:25 RBC (4.30-5.90) m/uL Hgb (13.0-17.5) gm/dL Hct (39.0-53.0) % Plt Count (150-450) k/uL PT (9.0-12.0) sec INR (<1.2) Sodium (137-145) mmol/L Chloride (98-107) mmol/L BUN (9-20) mg/dL Creatinine (0.66-1.25) mg/dL Glucose (74-99) mg/dL POC Glucose (mg/dL) 167 H 170 H 182 H (75-99) mg/dL Calcium (8.4-10.2) mg/dL 01/04/20 01/04/20 01/04/20 Range/Units 06:59 07:40 07:40 RBC 2.25 L (4.30-5.90) m/uL Hgb 6.6 L* D (13.0-17.5) gm/dL Hct 20.1 L (39.0-53.0) % Plt Count 71 L (150-450) k/uL PT 25.9 H (9.0-12.0) sec INR 2.7 H (<1.2) Sodium (137-145) mmol/L Chloride (98-107) mmol/L BUN (9-20) mg/dL Creatinine (0.66-1.25) mg/dL Glucose (74-99) mg/dL POC Glucose (mg/dL) 171 H (75-99) mg/dL Calcium (8.4-10.2) mg/dL 01/04/20 Range/Units 07:40 RBC (4.30-5.90) m/uL Hgb (13.0-17.5) gm/dL Hct (39.0-53.0) % Plt Count (150-450) k/uL PT (9.0-12.0) sec INR (<1.2) Sodium 130 L (137-145) mmol/L Chloride 94 L (98-107) mmol/L BUN 48 H (9-20) mg/dL Creatinine 5.49 H (0.66-1.25) mg/dL Glucose 144 H (74-99) mg/dL POC Glucose (mg/dL) (75-99) mg/dL Calcium 8.2 L (8.4-10.2) mg/dL Assessment and Plan Plan: Discussed with ERIC Ochoa and agree with above. Patient was subsequently seen and examined by me as well. S: Patient is resting comfortably in bed. No family at bedside. He reports good pain control at rest but still prominent discomfort when mobilizing. O: Pleasantly interactive and responds appropriately. Dressings are clean and dry with no strikethrough/shadowing. No palpable fluctuance. No visible ecchymosis. He is able to perform limited active internal and external rotation with minimal discomfort. A: 1. POD #2 s/p IMN of left intertrochanteric femur fracture 2. CKD on HD 3. Dementia P: Continue to progress activity and WB. IV opioids for breakthrough only. Continue PT. Further recommendations to follow. Karel Melchor D.O. [facility]
[2020-01-03 09:51] LABS: Potassium 6.4 mmol/L (3.5-5.1)
[2020-01-03] MEDS: HYDROcodone/APAP 7.5-325MG 1 EACH TAB PO PRN ×2 (10:05→16:49)
[2020-01-03] MEDS: INSULIN ASPART (NovoLOG) 100 UNIT/ML VIAL SQ SCH ×4 (10:18→21:21)
--- NOTE | 2020-01-03 10:27 | P.PN ---
Subjective Patient is seen in follow-up for end-stage renal disease. He is maintained on hemodialysis on Friday schedule. Tolerating dialysis well. No active complaints. Vital signs are stable. General: The patient appeared well nourished and normally developed. HEENT: Head exam is unremarkable. Neck is without jugular venous distension. LUNGS: Lungs are clear to auscultation and percussion. Breath sounds decreased. HEART: Rate and Rhythm are regular. ABDOMEN: Soft, nontender. EXTREMITITES: No edema. Objective - Vital Signs Vital signs: Vital Signs Temp 98.0 F 01/02/20 19:25 Pulse 74 01/03/20 08:00 Resp 14 01/03/20 08:00 BP 97/59 01/02/20 19:25 Pulse Ox 95 01/02/20 19:25 Intake & Output 01/02/20 01/03/20 01/03/20 18:59 06:59 18:59 Output Total 100 300 Balance -100 -300 Output: Urine 100 300 Uretheral (Spicer) 100 Other: Voiding Method Indwelling Catheter Indwelling Catheter Indwelling Catheter # Bowel Movements 1 - Labs CBC & Chem 7: 01/02/20 06:28 01/03/20 07:36 Labs: Abnormal Lab Results - Last 24 Hours (Table) 01/02/20 01/02/20 01/02/20 Range/Units 06:28 11:06 17:01 PT (9.0-12.0) sec INR (<1.2) Sodium 131 L (137-145) mmol/L Potassium 5.8 H (3.5-5.1) mmol/L Chloride 93 L (98-107) mmol/L BUN 48 H (9-20) mg/dL Creatinine 6.28 H (0.66-1.25) mg/dL Glucose 138 H (74-99) mg/dL POC Glucose (mg/dL) 172 H 187 H (75-99) mg/dL Calcium 8.2 L (8.4-10.2) mg/dL 01/02/20 01/03/20 01/03/20 Range/Units 20:13 07:36 07:36 PT 31.4 H (9.0-12.0) sec INR 3.2 H (<1.2) Sodium 129 L (137-145) mmol/L Potassium 6.4 H* (3.5-5.1) mmol/L Chloride 92 L (98-107) mmol/L BUN 67 H (9-20) mg/dL Creatinine 7.52 H* (0.66-1.25) mg/dL Glucose 160 H (74-99) mg/dL POC Glucose (mg/dL) 171 H (75-99) mg/dL Calcium 8.3 L (8.4-10.2) mg/dL Assessment and Plan Plan: Assessment: 1. End-stage renal disease maintained on hemodialysis on Friday schedule via right chest permacath. 2. Hyperkalemia secondary to chronic kidney disease. Expect improvement postdialysis. Also noted to be on potassium supplementation. 3. Hyponatremia secondary to chronic kidney disease. 4. Chronic kidney disease mineral bone disease maintained on calcitriol. 5. Anemia of chronic kidney disease maintained on Aranesp. 6. Hypertension with chronic kidney disease. Blood pressure on the lower side. 7. Displaced left femur fracture status post surgical intervention on December 31. Plan: Currently seen while undergoing hemodialysis. Hold hydralazine if systolic blood pressure less than 120. Discontinue potassium supplementation.
[2020-01-03] MEDS: TAMSULOSIN 0.4 MG CAP.ER.24H PO SCH ×2 (11:25→21:23)
[2020-01-03] MEDS: allopurinoL 100 MG TAB PO SCH (11:27)
[2020-01-03] MEDS: METOPROLOL TARTRATE 25 MG TAB PO SCH ×2 (13:44→21:22)
[2020-01-03] MEDS: SODIUM BICARBONATE TAB 650 MG TAB PO SCH ×2 (13:46→21:23)
[2020-01-03] MEDS: PANTOPRAZOLE 40 MG TABLET PO SCH (13:46)
[2020-01-03] MEDS: hydrALAZINE HCL 25 MG TAB PO SCH ×2 (13:46→21:21)
[2020-01-03] MEDS: POTASSIUM CHLORIDE ER 20 MEQ TAB.ER PO SCH (13:50)
[2020-01-03 13:51] LABS: Glucose,Whole Blood 167 mg/dL (75-99)
[2020-01-03 16:52] LABS: Glucose,Whole Blood 170 mg/dL (75-99)
[2020-01-03] MEDS ORDERED: WARFARIN 2 MG TAB PO ONE (18:00)
[2020-01-03 20:39] LABS: Glucose,Whole Blood 182 mg/dL (75-99)
[2020-01-03] MEDS: DONEPEZIL 10 MG TAB PO SCH (21:21)
[2020-01-03] MEDS: PRAVASTATIN SODIUM 40 MG TAB PO SCH (21:23)
[2020-01-03] MEDS: traMADol 50 MG TAB PO SCH (21:23)
--- NOTE | 2020-01-04 00:05 | P.PN ---
Progress Note - Text Progress Note Date: 01/03/20 Presenting complaint: Left femur fracture Interval history: Patient presented with a fall. Transferred here from [facility]. Underwent closed reduction and surgical stabilization the left ID femur fracture with cephalo- medullary nailing. Has Today-some pain at the operative site. Starting a diet. Getting hemodialysis today. Breathing is stable. Review of systems: Was done for constitutional, cardiovascular, GI, pulmonary. relevant finding as above Active Medications Acetaminophen (Tylenol Tab) 650 mg PO Q6HR PRN PRN Reason: Mild Pain or Fever > 100.5 Hydrocodone Bitart/Acetaminophen ([place] 7.5-325) 1 each PO Q4H PRN PRN Reason: Pain Scale 1 to 5 Hydrocodone Bitart/Acetaminophen ([place] 7.5-325) 2 each PO Q6H PRN PRN Reason: Pain Scale 6 to 10 Last Admin: 01/03/20 16:49 Dose: 2 each Documented by: Albuterol/Ipratropium (Duoneb 0.5 Mg-3 Mg/3 Ml Soln) 3 ml INHALATION RT-TID [facility] Last Admin: 01/03/20 18:54 Dose: 3 ml Documented by: Albuterol/Ipratropium (Duoneb 0.5 Mg-3 Mg/3 Ml Soln) 3 ml INHALATION RT-TID PRN PRN Reason: Shortness Of Breath Or Wheezing Allopurinol (Zyloprim) 100 mg PO DAILY [facility] Last Admin: 01/03/20 11:27 Dose: 100 mg Documented by: Calcitriol (Rocaltrol) 0.25 mcg PO DAILY [facility] Last Admin: 01/03/20 11:26 Dose: 0.25 mcg Documented by: Darbepoetin [place] (Aranesp) 60 mcg SQ Q7D [facility] Last Admin: 01/02/20 15:48 Dose: 60 mcg Documented by: Donepezil HCl (Aricept) 10 mg PO HS [facility] Last Admin: 01/03/20 21:21 Dose: 10 mg Documented by: Hydralazine HCl (Apresoline) 25 mg PO BID [facility] Last Admin: 01/03/20 21:21 Dose: 25 mg Documented by: Hydromorphone HCl (Dilaudid) 0.5 mg IVP Q3HR PRN PRN Reason: Breakthrough Pain Last Admin: 01/02/20 05:10 Dose: 0.5 mg Documented by: Insulin Aspart (Novolog) 0 unit SQ [facility]; Protocol Last Admin: 01/03/20 21:21 Dose: 2 unit Documented by: Metoprolol Tartrate (Lopressor) 25 mg PO BID [facility] Last Admin: 01/03/20 21:22 Dose: 25 mg Documented by: Miscellaneous Information (Coumadin Per Pharmacy) 1 each MISCELLANE DIRECTED PRN PRN Reason: Per Protocol Naloxone HCl (Narcan) 0.2 mg IV Q2M PRN PRN Reason: Opioid Reversal Ondansetron HCl (Zofran) 4 mg IVP Q8HR PRN PRN Reason: Nausea And Vomiting Pantoprazole Sodium (Protonix) 40 mg PO AC-BRKFST [facility] Last Admin: 01/03/20 13:46 Dose: 40 mg Documented by: Pravastatin Sodium (Pravachol) 40 mg PO [facility] Last Admin: 01/03/20 21:23 Dose: 40 mg Documented by: Sodium Bicarbonate (Sodium Bicarbonate Tab) 1,300 mg PO BID [facility] Last Admin: 01/03/20 21:23 Dose: 1,300 mg Documented by: Tamsulosin HCl (Flomax) 0.4 mg PO BID [facility] Last Admin: 01/03/20 21:23 Dose: 0.4 mg Documented by: Tramadol HCl (Ultram) 50 mg PO [facility] Last Admin: 01/03/20 21:23 Dose: 50 mg Documented by: On examination: VITAL SIGNS: 98.3, 94, 16, 110/63, that is 96% on room air GENERAL APPEARANCE: Average build. Lying in bed, not in distress. Getting hemodialysis HEENT: Normal external appearance of nose and ear. Oral cavity normal EYES: Pupils equal. Conjunctiva normal. NECK: JVD not raised. Mass not palpable. RESPIRATORY: Respiratory effort normal. Lungs decreased breath sounds. CARDIOVASCULAR: First and second sounds normal. No edema. ABDOMEN: Soft. Liver and spleen not palpable. No tenderness. No mass palpable. PSYCHIATRY: Alert and oriented x3. Mood and affect normal. INVESTIGATIONS, reviewed in the clinical context: Potassium 6.4 crit and Zofran 0.5 for Accu-Cheks noted sodium 129 Assessment: -Left femur IT fracture, secondary to fall, followed by nailing -Renal nephrolithiasis-bilateral with laser lithotripsy -End-stage kidney disease on hemodialysis- -Chronic kidney disease stage V, with hypertension -Metabolic acidosis from renal failure -Normocytic anemia likely secondary to chronic kidney disease -Thrombocytopenia -Diabetes mellitus type 2 chronically on insulin -BPH -Coronary artery disease -Moderate cognitive impairment probably from late onset Alzheimer's dementia -COPD -Essential hypertension- -Hyperlipidemia -Primary osteoarthritis -hyponatremia Plan: Continue current medication treatment plan. Patient's potassium will be corrected with the hemodialysis K bath. Discussed with the patient. cut in worker looking into placement to rehab.
[2020-01-04] MEDS: HYDROcodone/APAP 7.5-325MG 1 EACH TAB PO PRN ×2 (03:55→14:12)
[2020-01-04 07:08] LABS: Glucose,Whole Blood 171 mg/dL (75-99)
--- NOTE | 2020-01-04 08:14 | P.PN ---
<Terra Ochoa - Last Filed: 01/04/20 08:10> Subjective Progress Note Date: 01/04/20 Principal diagnosis: Status post left hip IT nail This is a 79 year-old male post left hip IT nail. This is post-op day 3. The patient was evaluated at the bedside today. The patient denies nausea, vomiting, abdominal pain, shortness of breath, and chest pain this morning. He states his pain is moderately controlled at this time. The patient has been up with physical therapy and to the commode chair. He states he still experiences severe pain when getting up out of bed. OT was about to work with the patient during my exam. He has not had much of an appetite lately. Objective - Vital Signs Vital signs: Vital Signs Temp 99.5 F 01/04/20 05:00 Pulse 76 01/04/20 05:00 Resp 20 01/04/20 05:00 BP 102/62 01/04/20 06:22 Pulse Ox 96 01/04/20 05:00 Intake & Output 01/03/20 01/04/20 01/04/20 18:59 06:59 18:59 Intake Total 200 1200 Output Total 2550 400 Balance -2350 800 Intake: Oral 200 1200 Output: Urine 1050 400 Hemodialysis 1500 Other: Voiding Method Indwelling Catheter Indwelling Catheter # Voids 0 # Bowel Movements 1 - Exam The patient does not appear in acute distress. Alert and orientated x3. Dressing is clean dry and intact. Incision appears fine with no erythema or active drainage. Calf is soft and nontender. Good foot and ankle motion without difficulty. Sensation and circulatory status is intact. - Labs CBC & Chem 7: 01/02/20 06:28 01/03/20 07:36 Labs: Abnormal Lab Results - Last 24 Hours (Table) 01/03/20 01/03/20 01/03/20 Range/Units 07:36 07:36 13:49 PT 31.4 H (9.0-12.0) sec INR 3.2 H (<1.2) Sodium 129 L (137-145) mmol/L Potassium 6.4 H* (3.5-5.1) mmol/L Chloride 92 L (98-107) mmol/L BUN 67 H (9-20) mg/dL Creatinine 7.52 H* (0.66-1.25) mg/dL Glucose 160 H (74-99) mg/dL POC Glucose (mg/dL) 167 H (75-99) mg/dL Calcium 8.3 L (8.4-10.2) mg/dL 01/03/20 01/03/20 01/04/20 Range/Units 16:50 20:25 06:59 PT (9.0-12.0) sec INR (<1.2) Sodium (137-145) mmol/L Potassium (3.5-5.1) mmol/L Chloride (98-107) mmol/L BUN (9-20) mg/dL Creatinine (0.66-1.25) mg/dL Glucose (74-99) mg/dL POC Glucose (mg/dL) 170 H 182 H 171 H (75-99) mg/dL Calcium (8.4-10.2) mg/dL Assessment and Plan (1) A-fib Current Visit: Yes Status: Acute Code(s): I48.91 - UNSPECIFIED ATRIAL FIBRILLATION SNOMED Code(s): 75698620 (2) COPD (chronic obstructive pulmonary disease) Current Visit: Yes Status: Acute Code(s): J44.9 - CHRONIC OBSTRUCTIVE PULMONARY DISEASE, UNSPECIFIED SNOMED Code(s): 81451065 (3) Dementia Current Visit: Yes Status: Acute Code(s): F03.90 - UNSPECIFIED DEMENTIA WITHOUT BEHAVIORAL DISTURBANCE SNOMED Code(s): 26220841 (4) Diabetes mellitus Current Visit: Yes Status: Acute Code(s): E11.9 - TYPE 2 DIABETES MELLITUS WITHOUT COMPLICATIONS SNOMED Code(s): 92327140 (5) Hypertension Current Visit: Yes Status: Acute Code(s): I10 - ESSENTIAL (PRIMARY) HYPERTENSION SNOMED Code(s): 29025095 (6) Hyperlipidemia Current Visit: Yes Status: Acute Code(s): E78.5 - HYPERLIPIDEMIA, UNSPECIFIED SNOMED Code(s): 38567754 (7) Fall Current Visit: Yes Status: Acute Code(s): W19.XXXA - UNSPECIFIED FALL, INITIAL ENCOUNTER SNOMED Code(s): 0447167 (8) Fracture, intertrochanteric, left femur Current Visit: Yes Status: Acute Code(s): S72.142A - DISPLACED INTERTROCHANTERIC FRACTURE OF LEFT FEMUR, INIT SNOMED Code(s): 591110408 Plan: 1. Continue pain control with [place] 7.5 2. Anticoagulation with Coumadin 3. Continue physical therapy and ambulation, weightbearing as tolerated with a walker and assistance 4. Anticipate discharge to [facility] today if cleared by internal medicine. <Karel Melchor - Last Filed: 01/05/20 12:55> Objective - Vital Signs Vital signs: Vital Signs Temp 98.1 F 01/05/20 09:06 Pulse 68 01/05/20 10:59 Resp 17 01/05/20 09:06 BP 115/57 01/05/20 09:06 Pulse Ox 98 01/05/20 09:06 Intake & Output 01/04/20 01/05/20 01/05/20 18:59 06:59 18:59 Intake Total 790 840 Output Total 500 500 Balance 790 340 -500 Intake: Oral 480 840 Blood Product 310 Rc As-1 Unit 310 [id number] Output: Urine 500 500 Other: Voiding Method Indwelling Catheter Indwelling Catheter Indwelling Catheter # Voids 0 - Labs CBC & Chem 7: 01/05/20 07:12 01/04/20 07:40 Labs: Abnormal Lab Results - Last 24 Hours (Table) 01/04/20 01/04/20 01/04/20 Range/Units 07:40 11:02 13:14 RBC (4.30-5.90) m/uL Hgb (13.0-17.5) gm/dL Hct (39.0-53.0) % Plt Count (150-450) k/uL Lymphocytes # (Manual) 0.40 L (1.0-4.8) k/uL PT (9.0-12.0) sec INR (<1.2) POC Glucose (mg/dL) 160 H (75-99) mg/dL Crossmatch See Detail 01/04/20 01/04/20 01/05/20 Range/Units 16:55 20:08 06:47 RBC (4.30-5.90) m/uL Hgb (13.0-17.5) gm/dL Hct (39.0-53.0) % Plt Count (150-450) k/uL Lymphocytes # (Manual) (1.0-4.8) k/uL PT (9.0-12.0) sec INR (<1.2) POC Glucose (mg/dL) 171 H 153 H 172 H (75-99) mg/dL Crossmatch 01/05/20 01/05/20 01/05/20 Range/Units 07:12 07:13 11:43 RBC 2.43 L (4.30-5.90) m/uL Hgb 7.2 L (13.0-17.5) gm/dL Hct 21.8 L (39.0-53.0) % Plt Count 75 L (150-450) k/uL Lymphocytes # (Manual) (1.0-4.8) k/uL PT 24.0 H (9.0-12.0) sec INR 2.5 H (<1.2) POC Glucose (mg/dL) 134 H (75-99) mg/dL Crossmatch Assessment and Plan Plan: Discussed with ERIC Ochoa and agree with above. The patient was subsequently seen and examined by me as well. S: Patient admits to feeling "so-so." Persistent pain in the hip but he states that it is fairly well-controlled at rest. O: Resting comfortably in bed. He still exhibits signs of confusion. No ecchymosis but the left thigh is enlarged, grossly asymmetric to the right side. Diffuse fluctuance, extending along the quads. Minimally tender to palpation except immediately around the incisions. No calor. No erythema. Symmetric warm and perfusion of both feet. No significant edema in the calves or feet. Able to perform limited active hip flexion and rotation. Minimal pain with midrange logroll. A: 1. Acute on chronic anemia - likely a combination of hemodilution plus acute blood loss in the setting of pre-existing anemia of chronic disease. 2. POD #3 s/p left IT fracture IMN 3. CKD on HD 4. Dementia P: Continue present care with progressive activity and mobilization with PT. We will continue to monitor his trending hemoglobin. DC plans in progress. Further recommendations to follow. Karel Melchor D.O. [facility]
[2020-01-04 08:15] LABS: HCT 20.1 % (39.0-53.0); MCH 29.5 pg (25.0-35.0); MCV 89.4 fL (80.0-100.0); Mean Platelet Volume 9.7; RBC 2.25 m/uL (4.30-5.90); RDW 14.4 % (11.5-15.5); WBC 6.6 k/uL (3.8-10.6)
[2020-01-04 08:18] LABS: INR 2.7 (<1.2); Prothrombin Time 25.9 sec (9.0-12.0)
[2020-01-04] MEDS: IPRATROPIUM-ALBUTEROL 3 ML NEB INHALATION SCH ×3 (08:35→19:08)
[2020-01-04 08:45] LABS: Platelet Count 71 k/uL (150-450)
[2020-01-04 08:47] LABS: HGB 6.6 gm/dL (13.0-17.5)
[2020-01-04] MEDS: INSULIN ASPART (NovoLOG) 100 UNIT/ML VIAL SQ SCH ×4 (09:12→21:14)
[2020-01-04] MEDS: PANTOPRAZOLE 40 MG TABLET PO SCH (09:13)
[2020-01-04] MEDS: allopurinoL 100 MG TAB PO SCH (10:04)
[2020-01-04] MEDS: hydrALAZINE HCL 25 MG TAB PO SCH ×2 (10:06→21:14)
[2020-01-04] MEDS: METOPROLOL TARTRATE 25 MG TAB PO SCH ×2 (10:07→21:14)
[2020-01-04] MEDS: SODIUM BICARBONATE TAB 650 MG TAB PO SCH ×2 (10:09→21:14)
[2020-01-04] MEDS: TAMSULOSIN 0.4 MG CAP.ER.24H PO SCH ×2 (10:10→21:14)
[2020-01-04 10:28] LABS: Calcium 8.2 mg/dL (8.4-10.2); Potassium 4.6 mmol/L (3.5-5.1)
--- NOTE | 2020-01-04 11:14 | P.PN ---
Subjective Patient is seen in follow-up for end-stage renal disease. He is maintained on hemodialysis on Friday schedule. Tolerated dialysis well yesterday. Complains of pain in left lower extremity. Hemoglobin 6.6 this morning. No active bleeding. Vital signs are stable. General: The patient appeared well nourished and normally developed. HEENT: Head exam is unremarkable. Neck is without jugular venous distension. LUNGS: Lungs are clear to auscultation and percussion. Breath sounds decreased. HEART: Rate and Rhythm are regular. ABDOMEN: Soft, nontender. EXTREMITITES: No edema. Objective - Vital Signs Vital signs: Vital Signs Temp 99.5 F 01/04/20 05:00 Pulse 76 01/04/20 05:00 Resp 20 01/04/20 05:00 BP 132/62 01/04/20 10:27 Pulse Ox 96 01/04/20 05:00 Intake & Output 01/03/20 01/04/20 01/04/20 18:59 06:59 18:59 Intake Total 200 1200 Output Total 2550 400 Balance -2350 800 Intake: Oral 200 1200 Output: Urine 1050 400 Hemodialysis 1500 Other: Voiding Method Indwelling Catheter Indwelling Catheter # Voids 0 # Bowel Movements 1 - Labs CBC & Chem 7: 01/04/20 07:40 01/04/20 07:40 Labs: Abnormal Lab Results - Last 24 Hours (Table) 01/03/20 01/03/20 01/03/20 Range/Units 13:49 16:50 20:25 RBC (4.30-5.90) m/uL Hgb (13.0-17.5) gm/dL Hct (39.0-53.0) % Plt Count (150-450) k/uL PT (9.0-12.0) sec INR (<1.2) Sodium (137-145) mmol/L Chloride (98-107) mmol/L BUN (9-20) mg/dL Creatinine (0.66-1.25) mg/dL Glucose (74-99) mg/dL POC Glucose (mg/dL) 167 H 170 H 182 H (75-99) mg/dL Calcium (8.4-10.2) mg/dL 01/04/20 01/04/20 01/04/20 Range/Units 06:59 07:40 07:40 RBC 2.25 L (4.30-5.90) m/uL Hgb 6.6 L* D (13.0-17.5) gm/dL Hct 20.1 L (39.0-53.0) % Plt Count 71 L (150-450) k/uL PT 25.9 H (9.0-12.0) sec INR 2.7 H (<1.2) Sodium (137-145) mmol/L Chloride (98-107) mmol/L BUN (9-20) mg/dL Creatinine (0.66-1.25) mg/dL Glucose (74-99) mg/dL POC Glucose (mg/dL) 171 H (75-99) mg/dL Calcium (8.4-10.2) mg/dL 01/04/20 Range/Units 07:40 RBC (4.30-5.90) m/uL Hgb (13.0-17.5) gm/dL Hct (39.0-53.0) % Plt Count (150-450) k/uL PT (9.0-12.0) sec INR (<1.2) Sodium 130 L (137-145) mmol/L Chloride 94 L (98-107) mmol/L BUN 48 H (9-20) mg/dL Creatinine 5.49 H (0.66-1.25) mg/dL Glucose 144 H (74-99) mg/dL POC Glucose (mg/dL) (75-99) mg/dL Calcium 8.2 L (8.4-10.2) mg/dL Assessment and Plan Plan: Assessment: 1. End-stage renal disease maintained on hemodialysis on Friday schedule via right chest permacath. 2. Hyperkalemia secondary to chronic kidney disease. Improved postdialysis. 3. Hyponatremia secondary to chronic kidney disease. Stable. 4. Chronic kidney disease mineral bone disease maintained on calcitriol. 5. Anemia of chronic kidney disease maintained on Aranesp. Hemoglobin 6.6 today. No active bleeding noted. 6. Hypertension with chronic kidney disease. Controlled. 7. Displaced left femur fracture status post surgical intervention on December 31. Plan: Hemodialysis tomorrow. Transfuse 1 unit of blood today. Check stool for occult blood. Consider GI consult. Hold hydralazine if systolic blood pressure less than 120. Discontinued potassium supplementation.
[2020-01-04 13:08] LABS: Monocytes # (M) 0.86 k/uL (0-1.0); Neutrophils # (M) 5.28 k/uL (1.3-7.7); Neutrophils % (M) 80 %; Nucleated Red Blood Cells 0 /100 WBC (0-0); Total Cells Counted 96
[2020-01-04 13:17] LABS: Glucose,Whole Blood 160 mg/dL (75-99)
[2020-01-04 17:00] LABS: Glucose,Whole Blood 171 mg/dL (75-99)
[2020-01-04] MEDS ORDERED: WARFARIN 5 MG TAB PO ONE (18:00)
[2020-01-04 20:10] LABS: Glucose,Whole Blood 153 mg/dL (75-99)
[2020-01-04] MEDS: PRAVASTATIN SODIUM 40 MG TAB PO SCH (21:14)
[2020-01-04] MEDS: DONEPEZIL 10 MG TAB PO SCH (21:14)
[2020-01-04] MEDS: traMADol 50 MG TAB PO SCH (21:15)
--- NOTE | 2020-01-05 00:19 | P.PN ---
Progress Note - Text Progress Note Date: 01/04/20 Presenting complaint: Left femur fracture Interval history: Patient presented with a fall. Transferred here from [facility]. Underwent closed reduction and surgical stabilization the left ID femur fracture with cephalo- medullary nailing. Has Today-some pain at the operative site. hemoglobin had dropped. 1 unit of blood ordered. Tolerating diet. Review of systems: Was done for constitutional, cardiovascular, GI, pulmonary. relevant finding as above Active Medications Acetaminophen (Tylenol Tab) 650 mg PO Q6HR PRN PRN Reason: Mild Pain or Fever > 100.5 Hydrocodone Bitart/Acetaminophen ([place] 7.5-325) 1 each PO Q4H PRN PRN Reason: Pain Scale 1 to 5 Last Admin: 01/04/20 03:55 Dose: 1 each Documented by: Hydrocodone Bitart/Acetaminophen ([place] 7.5-325) 2 each PO Q6H PRN PRN Reason: Pain Scale 6 to 10 Last Admin: 01/04/20 14:12 Dose: 2 each Documented by: Albuterol/Ipratropium (Duoneb 0.5 Mg-3 Mg/3 Ml Soln) 3 ml INHALATION RT-TID [facility] Last Admin: 01/04/20 19:08 Dose: 3 ml Documented by: Albuterol/Ipratropium (Duoneb 0.5 Mg-3 Mg/3 Ml Soln) 3 ml INHALATION RT-TID PRN PRN Reason: Shortness Of Breath Or Wheezing Allopurinol (Zyloprim) 100 mg PO DAILY [facility] Last Admin: 01/04/20 10:04 Dose: 100 mg Documented by: Calcitriol (Rocaltrol) 0.25 mcg PO DAILY [facility] Last Admin: 01/04/20 10:04 Dose: 0.25 mcg Documented by: Darbepoetin [place] (Aranesp) 60 mcg SQ Q7D [facility] Last Admin: 01/02/20 15:48 Dose: 60 mcg Documented by: Donepezil HCl (Aricept) 10 mg PO HS [facility] Last Admin: 01/04/20 21:14 Dose: 10 mg Documented by: Hydralazine HCl (Apresoline) 25 mg PO BID [facility] Last Admin: 01/04/20 21:14 Dose: 25 mg Documented by: Insulin Aspart (Novolog) 0 unit SQ ACHS [facility]; Protocol Last Admin: 01/04/20 21:14 Dose: 1 unit Documented by: Metoprolol Tartrate (Lopressor) 25 mg PO BID [facility] Last Admin: 01/04/20 21:14 Dose: 25 mg Documented by: Miscellaneous Information (Coumadin Per Pharmacy) 1 each MISCELLANE DIRECTED PRN PRN Reason: Per Protocol Naloxone HCl (Narcan) 0.2 mg IV Q2M PRN PRN Reason: Opioid Reversal Ondansetron HCl (Zofran) 4 mg IVP Q8HR PRN PRN Reason: Nausea And Vomiting Pantoprazole Sodium (Protonix) 40 mg PO AC-BRKFST [facility] Last Admin: 01/04/20 09:13 Dose: 40 mg Documented by: Pravastatin Sodium (Pravachol) 40 mg PO [facility] Last Admin: 01/04/20 21:14 Dose: 40 mg Documented by: Sodium Bicarbonate (Sodium Bicarbonate Tab) 1,300 mg PO BID [facility] Last Admin: 01/04/20 21:14 Dose: 1,300 mg Documented by: Tamsulosin HCl (Flomax) 0.4 mg PO BID [facility] Last Admin: 01/04/20 21:14 Dose: 0.4 mg Documented by: Tramadol HCl (Ultram) 50 mg PO [facility] Last Admin: 01/04/20 21:15 Dose: 50 mg Documented by: On examination: VITAL SIGNS: 97.3, 84, 18, 122/58, 94% on room air GENERAL APPEARANCE:laying in bed, awake HEENT: Normal external appearance of nose and ear. Oral cavity normal EYES: Pupils equal. Conjunctiva normal. NECK: JVD not raised. Mass not palpable. RESPIRATORY: Respiratory effort normal. Lungs decreased breath sounds. CARDIOVASCULAR: First and second sounds normal. No edema. ABDOMEN: Soft. Liver and spleen not palpable. No tenderness. No mass palpable. PSYCHIATRY: Alert and oriented x3. Mood and affect normal. 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 Repeat hemoglobin in the morning. Hopefully can be discharged after hemodialysis tomorrow.
[2020-01-05] MEDS: HYDROcodone/APAP 7.5-325MG 1 EACH TAB PO PRN ×2 (05:34→12:05)
[2020-01-05 07:04] LABS: Glucose,Whole Blood 172 mg/dL (75-99)
[2020-01-05] MEDS: IPRATROPIUM-ALBUTEROL 3 ML NEB INHALATION SCH ×2 (07:10→10:52)
[2020-01-05 08:08] LABS: INR 2.5 (<1.2)
[2020-01-05 08:18] LABS: HCT 21.8 % (39.0-53.0); HGB 7.2 gm/dL (13.0-17.5); MCH 29.5 pg (25.0-35.0); MCV 89.4 fL (80.0-100.0); Mean Platelet Volume 9.3; RBC 2.43 m/uL (4.30-5.90); RDW 14.3 % (11.5-15.5); WBC 5.9 k/uL (3.8-10.6)
--- NOTE | 2020-01-05 08:18 | P.PN ---
Subjective Progress Note Date: 01/05/20 Principal diagnosis: Status post left hip IT nail This is a 79 year-old male post left hip IT nail. This is post-op day 4. The patient was evaluated at the bedside today. The patient denies nausea, vomiting, abdominal pain, shortness of breath, and chest pain this morning. He states his pain is moderately controlled at this time. The patient has been up with physical therapy and to the commode chair. He states he still experiences severe pain when getting up out of bed. He is receiving hemodialysis today. He received 1 unit of PRBCs yesterday for a hemoglobin of 6.6. Hemoglobin today is 7.2. Objective - Vital Signs Vital signs: Vital Signs Temp 98 F 01/05/20 04:30 Pulse 68 01/05/20 07:19 Resp 16 01/05/20 04:30 BP 147/71 01/05/20 04:30 Pulse Ox 95 01/05/20 04:30 Intake & Output 01/04/20 01/05/20 01/05/20 18:59 06:59 18:59 Intake Total 790 840 Output Total 500 500 Balance 790 340 -500 Intake: Oral 480 840 Blood Product 310 Rc As-1 Unit 310 [id number] Output: Urine 500 500 Other: Voiding Method Indwelling Catheter Indwelling Catheter # Voids 0 - Exam The patient does not appear in acute distress. Alert and orientated x3. Dressing is clean dry and intact. Incision appears fine with no erythema or a ctive drainage. No significant bruising noted. Calf is soft and nontender. Good foot and ankle motion without difficulty. Sensation and circulatory status is intact. - Labs CBC & Chem 7: 01/05/20 07:12 01/04/20 07:40 Labs: Abnormal Lab Results - Last 24 Hours (Table) 01/04/20 01/04/20 01/04/20 Range/Units 07:40 07:40 07:40 RBC 2.25 L (4.30-5.90) m/uL Hgb 6.6 L* D (13.0-17.5) gm/dL Hct 20.1 L (39.0-53.0) % Plt Count 71 L (150-450) k/uL Lymphocytes # (Manual) 0.40 L (1.0-4.8) k/uL PT 25.9 H (9.0-12.0) sec INR 2.7 H (<1.2) Sodium 130 L (137-145) mmol/L Chloride 94 L (98-107) mmol/L BUN 48 H (9-20) mg/dL Creatinine 5.49 H (0.66-1.25) mg/dL Glucose 144 H (74-99) mg/dL POC Glucose (mg/dL) (75-99) mg/dL Calcium 8.2 L (8.4-10.2) mg/dL Crossmatch 01/04/20 01/04/20 01/04/20 Range/Units 11:02 13:14 16:55 RBC (4.30-5.90) m/uL Hgb (13.0-17.5) gm/dL Hct (39.0-53.0) % Plt Count (150-450) k/uL Lymphocytes # (Manual) (1.0-4.8) k/uL PT (9.0-12.0) sec INR (<1.2) Sodium (137-145) mmol/L Chloride (98-107) mmol/L BUN (9-20) mg/dL Creatinine (0.66-1.25) mg/dL Glucose (74-99) mg/dL POC Glucose (mg/dL) 160 H 171 H (75-99) mg/dL Calcium (8.4-10.2) mg/dL Crossmatch See Detail 01/04/20 01/05/20 01/05/20 Range/Units 20:08 06:47 07:13 RBC (4.30-5.90) m/uL Hgb (13.0-17.5) gm/dL Hct (39.0-53.0) % Plt Count (150-450) k/uL Lymphocytes # (Manual) (1.0-4.8) k/uL PT 24.0 H (9.0-12.0) sec INR 2.5 H (<1.2) Sodium (137-145) mmol/L Chloride (98-107) mmol/L BUN (9-20) mg/dL Creatinine (0.66-1.25) mg/dL Glucose (74-99) mg/dL POC Glucose (mg/dL) 153 H 172 H (75-99) mg/dL Calcium (8.4-10.2) mg/dL Crossmatch Assessment and Plan (1) A-fib Current Visit: Yes Status: Acute Code(s): I48.91 - UNSPECIFIED ATRIAL FIBRILLATION SNOMED Code(s): 25712123 (2) COPD (chronic obstructive pulmonary disease) Current Visit: Yes Status: Acute Code(s): J44.9 - CHRONIC OBSTRUCTIVE PULMONARY DISEASE, UNSPECIFIED SNOMED Code(s): 82071846 (3) Dementia Current Visit: Yes Status: Acute Code(s): F03.90 - UNSPECIFIED DEMENTIA WITHOUT BEHAVIORAL DISTURBANCE SNOMED Code(s): 06922250 (4) Diabetes mellitus Current Visit: Yes Status: Acute Code(s): E11.9 - TYPE 2 DIABETES MELLITUS WITHOUT COMPLICATIONS SNOMED Code(s): 90035122 (5) Hypertension Current Visit: Yes Status: Acute Code(s): I10 - ESSENTIAL (PRIMARY) HYPERTENSION SNOMED Code(s): 25132269 (6) Hyperlipidemia Current Visit: Yes Status: Acute Code(s): E78.5 - HYPERLIPIDEMIA, UNSPECIFIED SNOMED Code(s): 15438678 (7) Fall Current Visit: Yes Status: Acute Code(s): W19.XXXA - UNSPECIFIED FALL, I NITIAL ENCOUNTER SNOMED Code(s): 6504440 (8) Fracture, intertrochanteric, left femur Current Visit: Yes Status: Acute Code(s): S72.142A - DISPLACED INTERTROCHANTERIC FRACTURE OF LEFT FEMUR, INIT SNOMED Code(s): 252862622 Plan: 1. Continue pain control with [place] 7.5 2. Anticoagulation with Coumadin 3. Continue physical therapy and ambulation, weightbearing as tolerated with a walker and assistance 4. Anticipate discharge to [facility] today if cleared by internal medicine.
[2020-01-05 08:22] LABS: Platelet Count 75 k/uL (150-450)
[2020-01-05] MEDS: TAMSULOSIN 0.4 MG CAP.ER.24H PO SCH (08:43)
[2020-01-05] MEDS: INSULIN ASPART (NovoLOG) 100 UNIT/ML VIAL SQ SCH ×2 (09:45→12:06)
[2020-01-05] MEDS: PANTOPRAZOLE 40 MG TABLET PO SCH (09:51)
--- NOTE | 2020-01-05 10:18 | P.PN ---
Subjective Patient is seen in follow-up for end-stage renal disease. He is maintained on hemodialysis on Friday schedule. Tolerating dialysis well. Complains of pain in left lower extremity. Status post blood transfusion yesterday. No active bleeding. Vital signs are stable. General: The patient appeared well nourished and normally developed. HEENT: Head exam is unremarkable. Neck is without jugular venous distension. LUNGS: Lungs are clear to auscultation and percussion. Breath sounds decreased. HEART: Rate and Rhythm are regular. ABDOMEN: Soft, nontender. EXTREMITITES: No edema. Objective - Vital Signs Vital signs: Vital Signs Temp 98.1 F 01/05/20 09:06 Pulse 63 01/05/20 09:06 Resp 17 01/05/20 09:06 BP 115/57 01/05/20 09:06 Pulse Ox 98 01/05/20 09:06 Intake & Output 01/04/20 01/05/20 01/05/20 18:59 06:59 18:59 Intake Total 790 840 Output Total 500 500 Balance 790 340 -500 Intake: Oral 480 840 Blood Product 310 Rc As-1 Unit 310 [id number] Output: Urine 500 500 Other: Voiding Method Indwelling Catheter Indwelling Catheter # Voids 0 - Labs CBC & Chem 7: 01/05/20 07:12 01/04/20 07:40 Labs: Abnormal Lab Results - Last 24 Hours (Table) 01/04/20 01/04/20 01/04/20 Range/Units 07:40 07:40 11:02 RBC (4.30-5.90) m/uL Hgb (13.0-17.5) gm/dL Hct (39.0-53.0) % Plt Count (150-450) k/uL Lymphocytes # (Manual) 0.40 L (1.0-4.8) k/uL PT (9.0-12.0) sec INR (<1.2) Sodium 130 L (137-145) mmol/L Chloride 94 L (98-107) mmol/L BUN 48 H (9-20) mg/dL Creatinine 5.49 H (0.66-1.25) mg/dL Glucose 144 H (74-99) mg/dL POC Glucose (mg/dL) (75-99) mg/dL Calcium 8.2 L (8.4-10.2) mg/dL Crossmatch See Detail 01/04/20 01/04/20 01/04/20 Range/Units 13:14 16:55 20:08 RBC (4.30-5.90) m/uL Hgb (13.0-17.5) gm/dL Hct (39.0-53.0) % Plt Count (150-450) k/uL Lymphocytes # (Manual) (1.0-4.8) k/uL PT (9.0-12.0) sec INR (<1.2) Sodium (137-145) mmol/L Chloride (98-107) mmol/L BUN (9-20) mg/dL Creatinine (0.66-1.25) mg/dL Glucose (74-99) mg/dL POC Glucose (mg/dL) 160 H 171 H 153 H (75-99) mg/dL Calcium (8.4-10.2) mg/dL Crossmatch 01/05/20 01/05/20 01/05/20 Range/Units 06:47 07:12 07:13 RBC 2.43 L (4.30-5.90) m/uL Hgb 7.2 L (13.0-17.5) gm/dL Hct 21.8 L (39.0-53.0) % Plt Count 75 L (150-450) k/uL Lymphocytes # (Manual) (1.0-4.8) k/uL PT 24.0 H (9.0-12.0) sec INR 2.5 H (<1.2) Sodium (137-145) mmol/L Chloride (98-107) mmol/L BUN (9-20) mg/dL Creatinine (0.66-1.25) mg/dL Glucose (74-99) mg/dL POC Glucose (mg/dL) 172 H (75-99) mg/dL Calcium (8.4-10.2) mg/dL Crossmatch Assessment and Plan Plan: Assessment: 1. End-stage renal disease maintained on hemodialysis on Friday schedule via right chest permacath. 2. Hyperkalemia secondary to chronic kidney disease. Improved postdialysis. 3. Hyponatremia secondary to chronic kidney disease. Stable. 4. Chronic kidney disease mineral bone disease maintained on calcitriol. 5. Anemia of chronic kidney disease maintained on Aranesp. Status post blood transfusion on January 03. No active bleeding noted. 6. Hypertension with chronic kidney disease. Controlled. 7. Displaced left femur fracture status post surgical intervention on December 31. Plan: Currently seen while undergoing hemodialysis. Next treatment on Friday. Hold hydralazine if systolic blood pressure less than 120. Discontinued potassium supplementation. Anticipated discharge to rehab soon.
[2020-01-05 11:45] LABS: Glucose,Whole Blood 134 mg/dL (75-99)
[2020-01-05] MEDS: METOPROLOL TARTRATE 25 MG TAB PO SCH (12:04)
[2020-01-05] MEDS: SODIUM BICARBONATE TAB 650 MG TAB PO SCH (12:05)
[2020-01-05] MEDS: hydrALAZINE HCL 25 MG TAB PO SCH (12:05)
[2020-01-05] MEDS: allopurinoL 100 MG TAB PO SCH (12:05)
--- NOTE | 2020-01-05 14:47 | P.DS ---
Providers Date of admission: 12/31/19 19:09 Expected date of discharge: 01/05/20 Attending physician: Meliton Be Consults: 12/31/19 19:08 Consult Physician Routine Consulting Provider: Juan F Patel Consult Reason/Comments: Preoperative clearance Do you want consulting provider notified?: Yes 12/31/19 19:12 Consult Physician Routine Consulting Provider: Kina Cox Consult Reason/Comments: End-stage renal disease Do you want consulting provider notified?: Yes 12/31/19 21:28 Consult Physician Routine Consulting Provider: Randall Orozco Consult Reason/Comments: History of Afib, clearence for surgery Do you want consulting provider notified?: Yes, Notify in am 01/03/20 09:45 Consult Physician Routine Consulting Provider: Karel Melchor Consult Reason/Comments: left hip fracture Do you want consulting provider notified?: Already Contacted Primary care physician: [facility] Course: Presenting complaint: Left femur fracture Interval history: Patient presented with a fall. Transferred here from [facility]. Underwent closed reduction and surgical stabilization the left ID femur fracture with cephalo- medullary nailing. He received a unit of blood. Patient was hemodialyzed here Today-left hip pain better controlled. Starting a diet. Discussed with the patient. Discharge statement Consultation: Dr. Kwon nephrology Dr. Loaiza from orthopedics Dr. Barron from cardiology On examination: VITAL SIGNS: 98.1, 67, 17, 112/68, 98% room air GENERAL APPEARANCE:laying in bed, awake HEENT: Normal external appearance of nose and ear. Oral cavity normal EYES: Pupils equal. Conjunctiva normal. NECK: JVD not raised. Mass not palpable. RESPIRATORY: Respiratory effort normal. Lungs decreased breath sounds. CARDIOVASCULAR: First and second sounds normal. No edema. ABDOMEN: Soft. Liver and spleen not palpable. No tenderness. No mass palpable. PSYCHIATRY: Alert and oriented x3. Mood and affect normal. 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- -Chronic kidney disease stage V, with hypertension -Metabolic acidosis from renal failure -Normocytic anemia likely secondary to chronic kidney disease -Thrombocytopenia -Diabetes mellitus type 2 chronically on insulin -BPH -Coronary artery disease -Moderate cognitive impairment probably from late onset Alzheimer's dementia -COPD -Essential hypertension- -Hyperlipidemia -Primary osteoarthritis -hyponatremia -Acute postprocedure blood loss anemia expected from surgery Disposition: ECF Patient Condition at Discharge: Stable Plan - Discharge Summary Discharge Rx Participant: No New Discharge Prescriptions: New Hydrocodone/Acetaminophen [[place] 7.5-325] 1 - 2 tab PO Q4-6H PRN 7 Days #50 tab PRN Reason: Pain Sennosides-Docusate Sodium [Senokot-S] 2 tab PO DAILY #30 tablet Ipratropium-Albuterol Nebulize [Duoneb 0.5 mg-3 mg/3 ml Soln] 3 ml INHALATION RT-TID PRN ml PRN Reason: Shortness Of Breath Or Wheezing Pantoprazole [Protonix] 40 mg PO AC-BRKFST tablet.dr Continue allopurinoL [Zyloprim] 100 mg PO DAILY Tamsulosin HCl [Flomax] 0.4 mg PO BID Pravastatin Sodium [Pravachol] 40 mg PO HS hydrALAZINE HCL [Apresoline] 100 mg PO BID Donepezil [Aricept] 10 mg PO HS calcitrioL [Calcitriol] 0.25 mcg PO DAILY Sodium Bicarbonate Tab 1,300 mg PO BID #60 tab Metoprolol Tartrate [Lopressor] 25 mg PO BID #60 tab Warfarin [Coumadin] 5 mg PO HS #0 Insulin NPH Human Isophane [humuLIN N] See Protocol SQ AC-BID traMADol HCL 50 mg PO HS #3 tab Discontinued amLODIPine [Norvasc] 10 mg PO DAILY Potassium Chloride ER [K-Dur 20] 20 meq PO BID Discharge Medication List Tamsulosin HCl [Flomax] 0.4 mg PO BID 02/09/16 [History] allopurinoL [Zyloprim] 100 mg PO DAILY 02/09/16 [History] Pravastatin Sodium [Pravachol] 40 mg PO HS 06/30/18 [History] Donepezil [Aricept] 10 mg PO HS 10/20/19 [History] calcitrioL [Calcitriol] 0.25 mcg PO DAILY 10/20/19 [History] hydrALAZINE HCL [Apresoline] 100 mg PO BID 10/20/19 [History] Metoprolol Tartrate [Lopressor] 25 mg PO BID #60 tab 10/26/19 [Rx] Sodium Bicarbonate Tab 1,300 mg PO BID #60 tab 10/26/19 [Rx] Warfarin [Coumadin] 5 mg PO HS #0 10/26/19 [Rx] Insulin NPH Human Isophane [humuLIN N] See Protocol SQ AC-BID 12/31/19 [History] Hydrocodone/Acetaminophen [[place] 7.5-325] 1 - 2 tab PO Q4-6H PRN 7 Days #50 tab 01/04/20 [Rx] Sennosides-Docusate Sodium [Senokot-S] 2 tab PO DAILY #30 tablet 01/04/20 [Rx] Ipratropium-Albuterol Nebulize [Duoneb 0.5 mg-3 mg/3 ml Soln] 3 ml INHALATION RT-TID PRN ml 01/05/20 [Rx] Pantoprazole [Protonix] 40 mg PO AC-BRKFST tablet. 01/05/20 [Rx] traMADol HCL 50 mg PO HS #3 tab 01/05/20 [Rx] Follow up Appointment(s)/Referral(s): Emeterio Hickman MD [STAFF PHYSICIAN] - 2 Weeks Dereck Greenberg MD [Primary Care Provider] - 1-2 days Karel Melchor DO [Medical Doctor] - 2 Weeks Activity/Diet/Wound Care/Special Instructions: Keep incision clean and dry. Change dressing daily using sterile technique and as needed for drainage. May shower over incision. PT - WBAT with walker and assistance. Use pain medication as directed. Continue Coumadin Follow up outpatient with Dr. Melchor in 2 weeks -- call for appointment. Call [facility] with questions or concerns. Discharge Disposition: TRANSFER TO SNF/ECF
[2020-01-05 15:08] VITALS: BP 144/69; RESP 18; TEMP 97
[2020-01-05 15:17] VITALS: PULSE 77
[2020-01-05] MEDS ORDERED: WARFARIN 5 MG TAB PO SCH (18:00)
== END 2020-01-05 16:50 | DRG 480 ==
LOC: EC 18:47 → 5NMEDONC 19:09
PROVIDERS: ADMIT Hospitalist; ATTEND Hospitalist
PROC: 0QS734Z Reposition Left Upper Femur with Internal Fixation Device, Percutaneous Approach (ICD-10-PCS; principal; 2020-01-01 12:30)
PROC: 30233N1 Transfusion of Nonautologous Red Blood Cells into Peripheral Vein, Percutaneous Approach (ICD-10-PCS; 2020-01-04)
PROC: 5A1D70Z Performance of Urinary Filtration, Intermittent, Less than 6 Hours Per Day (ICD-10-PCS; 2020-01-05)
DX: S72.142A Displaced intertrochanteric fracture of left femur, initial encounter for closed fracture (principal); N18.6 End stage renal disease; D62 Acute posthemorrhagic anemia; E87.1 Hypo-osmolality and hyponatremia; E87.2 Acidosis; I12.0 Hypertensive chronic kidney disease with stage 5 chronic kidney disease or end stage renal disease; I48.19 Other persistent atrial fibrillation; I45.2 Bifascicular block; D63.1 Anemia in chronic kidney disease; D69.6 Thrombocytopenia, unspecified; E83.9 Disorder of mineral metabolism, unspecified; E11.22 Type 2 diabetes mellitus with diabetic chronic kidney disease; F02.80 Dementia in other diseases classified elsewhere, unspecified severity, without behavioral disturbance, psychotic disturbance, mood disturbance, and anxiety; G30.1 Alzheimer's disease with late onset; E78.5 Hyperlipidemia, unspecified; E87.5 Hyperkalemia; I25.10 Atherosclerotic heart disease of native coronary artery without angina pectoris; I25.2 Old myocardial infarction; J44.9 Chronic obstructive pulmonary disease, unspecified; M19.91 Primary osteoarthritis, unspecified site; N20.0 Calculus of kidney; N40.0 Benign prostatic hyperplasia without lower urinary tract symptoms; S09.90XA Unspecified injury of head, initial encounter; Z11.59 Encounter for screening for other viral diseases; Z79.01 Long term (current) use of anticoagulants; Z79.4 Long term (current) use of insulin; Z79.899 Other long term (current) drug therapy; Z99.2 Dependence on renal dialysis; Z95.1 Presence of aortocoronary bypass graft; Z87.891 Personal history of nicotine dependence; Z90.49 Acquired absence of other specified parts of digestive tract; Z88.8 Allergy status to other drugs, medicaments and biological substances; W01.0XXA Fall on same level from slipping, tripping and stumbling without subsequent striking against object, initial encounter
CPT/HCPCS: 36415; 71045; 73501; 73502; 80048; 83036; 83735; 83880; 85025; 85027; 85610; 85730; 86850; 86900; 86901; 86920; 87635; 90935; 93005; 94640; 99285

== ENCOUNTER 2020-02-06 13:27 | Observation (INO) | payer MEDICARE, BC ==
[2020-02-06 13:38] VITALS: RESP 18
--- NOTE | 2020-02-06 14:13 | ED ---
General Adult HPI - General Chief complaint: Weakness Stated complaint: lt leg pain Time Seen by Provider: 02/06/20 13:38 Source: patient, EMS, RN notes reviewed, old records reviewed Mode of arrival: EMS Limitations: physical limitation - History of Present Illness Initial comments: 79-year-old male presenting with increased weakness, difficulty ambulating. He is coming from home. He had recent stay in rehabilitation facility after a left hip fracture. He denies fever. Denies vomiting. He has been eating and drinking well. No chest pain or dyspnea. He does have some pain in the left hip which is been constant after his surgery, no acute changes, no falls. - Related Data Home Medications Medication Instructions Recorded Confirmed Tamsulosin HCl [Flomax] 0.4 mg PO BID 02/09/16 12/31/19 allopurinoL [Zyloprim] 100 mg PO DAILY 02/09/16 12/31/19 Pravastatin Sodium [Pravachol] 40 mg PO HS 06/30/18 12/31/19 Donepezil [Aricept] 10 mg PO HS 10/20/19 12/31/19 calcitrioL [Calcitriol] 0.25 mcg PO DAILY 10/20/19 12/31/19 hydrALAZINE HCL [Apresoline] 100 mg PO BID 10/20/19 12/31/19 Insulin NPH Human Isophane See Protocol SQ AC-BID 12/31/19 12/31/19 [humuLIN N] Previous Rx's Medication Instructions Recorded Metoprolol Tartrate [Lopressor] 25 mg PO BID #60 tab 10/26/19 Sodium Bicarbonate Tab 1,300 mg PO BID #60 tab 10/26/19 Warfarin [Coumadin] 5 mg PO HS #0 10/26/19 Hydrocodone/Acetaminophen [[place] 1 - 2 tab PO Q4-6H PRN 7 Days #50 01/04/20 7.5-325] tab Sennosides-Docusate Sodium 2 tab PO DAILY #30 tablet 01/04/20 [Senokot-S] Ipratropium-Albuterol Nebulize 3 ml INHALATION RT-TID PRN ml 01/05/20 [Duoneb 0.5 mg-3 mg/3 ml Soln] Pantoprazole [Protonix] 40 mg PO AC-BRKFST tablet. 01/05/20 traMADol HCL 50 mg PO HS #3 tab 01/05/20 Allergies Allergy/AdvReac Type Severity Reaction Status Date / Time hyper immune syrum from Allergy Unknown Uncoded 02/06/20 13:38 horses Childhood Review of Systems ROS Statement: Those systems with pertinent positive or pertinent negative responses have been documented in the HPI. ROS Other: All systems not noted in ROS Statement are negative. Past Medical History Past Medical History: Atrial Fibrillation, COPD, Dementia, Diabetes Mellitus, Hyperlipidemia, Hypertension, Myocardial Infarction (CA) Last Myocardial Infarction Date:: unsure History of Any Multi-Drug Resistant Organisms: None Reported Past Surgical History: Back Surgery, Cholecystectomy, Coronary Bypass/CABG, Heart Catheterization Past Anesthesia/Blood Transfusion Reactions: No Reported Reaction Past Psychological History: No Psychological Hx Reported Smoking Status: Former smoker Past Alcohol Use History: None Reported Past Drug Use History: None Reported General Exam Limitations: physical limitation General appearance: alert, in no apparent distress Head exam: Present: atraumatic, normocephalic Eye exam: Present: normal appearance, PERRL ENT exam: Present: normal exam Neck exam: Present: normal inspection. Absent: tenderness, meningismus Respiratory exam: Present: normal lung sounds bilaterally. Absent: respiratory distress, wheezes Cardiovascular Exam: Present: bradycardia, irregular rhythm GI/Abdominal exam: Present: soft. Absent: distended, tenderness, guarding Extremities exam: Present: normal inspection, normal capillary refill. Absent: pedal edema Neurological exam: Present: alert, oriented X3 Psychiatric exam: Present: normal affect, normal mood Skin exam: Present: warm, dry, intact Course Vital Signs 02/06/20 02/06/20 13:33 14:47 Temperature 98.0 F Pulse Rate 53 L 47 L Respiratory 18 18 Rate Blood Pressure 150/75 145/58 O2 Sat by Pulse 98 98 Oximetry EKG Findings - EKG Comments: EKG Findings:: EKG: Atrial fibrillation with slow response, right bundle, left anterior fascicular block, LVH, no ST segment elevation, rate of 52, QRS duration 158, QTC 494 Medical Decision Making - Medical Decision Making 71-year-old male with difficulty ambulating, generalized weakness. Patient has no pets accompanied 0.3, hemoglobin is 9 which is improved from prior. He has UTI with greater than 182 red cells, both urine culture and blood cultures are obtained. Patient is started on Rocephin. He will be admitted for treatment of urinary tract infection, will likely need placement for continued rehabilitation. - Lab Data Result diagrams: 02/06/20 14:46 02/06/20 14:46 Lab Results 02/06/20 02/06/20 02/06/20 Range/Units 14:46 14:46 14:46 WBC 3.3 L (3.8-10.6) k/uL RBC 2.99 L (4.30-5.90) m/uL Hgb 9.0 L D (13.0-17.5) gm/dL Hct 27.6 L (39.0-53.0) % MCV 92.3 (80.0-100.0) fL MCH 30.0 (25.0-35.0) pg MCHC 32.5 (31.0-37.0) g/dL RDW 14.7 (11.5-15.5) % Plt Count 61 L (150-450) k/uL Neutrophils % 68 % Lymphocytes % 12 % Monocytes % 15 % Eosinophils % 2 % Basophils % 1 % Neutrophils # 2.3 (1.3-7.7) k/uL Lymphocytes # 0.4 L (1.0-4.8) k/uL Monocytes # 0.5 (0-1.0) k/uL Eosinophils # 0.1 (0-0.7) k/uL Basophils # 0.0 (0-0.2) k/uL PT 12.9 H (9.0-12.0) sec INR 1.3 H (<1.2) APTT 29.5 (22.0-30.0) sec Sodium (137-145) mmol/L Potassium (3.5-5.1) mmol/L Chloride (98-107) mmol/L Carbon Dioxide (22-30) mmol/L Anion Gap mmol/L BUN (9-20) mg/dL Creatinine (0.66-1.25) mg/dL Est GFR (CKD-EPI)AfAm (>60 ml/min/1.73 sqM) Est GFR (CKD-EPI)NonAf (>60 ml/min/1.73 sqM) Glucose (74-99) mg/dL Plasma Lactic Acid Dave (0.7-2.0) mmol/L Calcium (8.4-10.2) mg/dL Magnesium (1.6-2.3) mg/dL Total Bilirubin (0.2-1.3) mg/dL AST (17-59) U/L ALT (4-49) U/L Alkaline Phosphatase (38-126) U/L Troponin I (0.000-0.034) ng/mL Total Protein (6.3-8.2) g/dL Albumin (3.5-5.0) g/dL Urine Color Yellow Urine Appearance Cloudy (Clear) Urine pH 8.0 (5.0-8.0) Ur Specific [place] 1.014 (1.001-1.035) Urine Protein 3+ H (Negative) Urine Glucose (UA) Negative (Negative) Urine Ketones Negative (Negative) Urine Blood Trace H (Negative) Urine Nitrite Negative (Negative) Urine Bilirubin Negative (Negative) Urine Urobilinogen <2.0 (<2.0) mg/dL Ur Leukocyte Esterase Large H (Negative) Urine RBC 18 H (0-5) /hpf Urine WBC >182 H (0-5) /hpf Urine WBC Clumps Many H (None) /hpf Ur Squamous Epith Cells <1 (0-4) /hpf Urine Bacteria Occasional H (None) /hpf Hyaline Casts 2 (0-2) /lpf 02/06/20 02/06/20 02/06/20 Range/Units 14:46 14:46 14:46 WBC (3.8-10.6) k/uL RBC (4.30-5.90) m/uL Hgb (13.0-17.5) gm/dL Hct (39.0-53.0) % MCV (80.0-100.0) fL MCH (25.0-35.0) pg MCHC (31.0-37.0) g/dL RDW (11.5-15.5) % Plt Count (150-450) k/uL Neutrophils % % Lymphocytes % % Monocytes % % Eosinophils % % Basophils % % Neutrophils # (1.3-7.7) k/uL Lymphocytes # (1.0-4.8) k/uL Monocytes # (0-1.0) k/uL Eosinophils # (0-0.7) k/uL Basophils # (0-0.2) k/uL PT (9.0-12.0) sec INR (<1.2) APTT (22.0-30.0) sec Sodium 135 L (137-145) mmol/L Potassium 3.3 L (3.5-5.1) mmol/L Chloride 98 (98-107) mmol/L Carbon Dioxide 29 (22-30) mmol/L Anion Gap 8 mmol/L BUN 34 H (9-20) mg/dL Creatinine 4.46 H (0.66-1.25) mg/dL Est GFR (CKD-EPI)AfAm 14 (>60 ml/min/1.73 sqM) Est GFR (CKD-EPI)NonAf 12 (>60 ml/min/1.73 sqM) Glucose 89 (74-99) mg/dL Plasma Lactic Acid Dave 0.9 (0.7-2.0) mmol/L Calcium 8.4 (8.4-10.2) mg/dL Magnesium 2.0 (1.6-2.3) mg/dL Total Bilirubin 0.8 (0.2-1.3) mg/dL AST 21 (17-59) U/L ALT 11 (4-49) U/L Alkaline Phosphatase 106 (38-126) U/L Troponin I 0.039 H* (0.000-0.034) ng/mL Total Protein 5.5 L (6.3-8.2) g/dL Albumin 3.4 L (3.5-5.0) g/dL Urine Color Urine Appearance (Clear) Urine pH (5.0-8.0) Ur Specific [place] (1.001-1.035) Urine Protein (Negative) Urine Glucose (UA) (Negative) Urine Ketones (Negative) Urine Blood (Negative) Urine Nitrite (Negative) Urine Bilirubin (Negative) Urine Urobilinogen (<2.0) mg/dL Ur Leukocyte Esterase (Negative) Urine RBC (0-5) /hpf Urine WBC (0-5) /hpf Urine WBC Clumps (None) /hpf Ur Squamous Epith Cells (0-4) /hpf Urine Bacteria (None) /hpf Hyaline Casts (0-2) /lpf Disposition Clinical Impression: A-fib, Dehydration, UTI (urinary tract infection) Disposition: ADMITTED IP TO THIS HOSP Condition: Stable Is patient prescribed a controlled substance at d/c from ED?: No Referrals: Dereck Greenberg MD [Primary Care Provider] - 1-2 days Decision to Admit Reason: Admit from EC Decision Date: 02/06/20 Decision Time: 15:53
[2020-02-06 14:56] LABS: Basophils % (A) 1 %; Eosinophils # (A) 0.1 k/uL (0-0.7); Eosinophils % (A) 2 %; HCT 27.6 % (39.0-53.0); Lymphocytes # (A) 0.4 k/uL (1.0-4.8); Lymphocytes % (A) 12 %; MCHC 32.5 g/dL (31.0-37.0); MCV 92.3 fL (80.0-100.0); Mean Platelet Volume 9.9; Monocytes # (A) 0.5 k/uL (0-1.0); Monocytes % (A) 15 %; Neutrophils # (A) 2.3 k/uL (1.3-7.7); Neutrophils % (A) 68 %; RBC 2.99 m/uL (4.30-5.90); RDW 14.7 % (11.5-15.5); WBC 3.3 k/uL (3.8-10.6)
[2020-02-06 14:58] LABS: Platelet Count 61 k/uL (150-450)
[2020-02-06 15:04] LABS: INR 1.3 (<1.2); Partial Thromboplastin Time 29.5 sec (22.0-30.0); Prothrombin Time 12.9 sec (9.0-12.0)
--- NOTE | 2020-02-06 15:14 | XR ---
EXAMINATION TYPE: XR chest 2V DATE OF EXAM: 02/06/2020 COMPARISON: 12/31/2019 HISTORY: 79-year-old male with weakness and left leg pain TECHNIQUE: AP and lateral views FINDINGS: Right-sided double-lumen hemodialysis catheter with tips at the cavoatrial junction. Median sternotom y wires and postsurgical clips. Heart borderline to mildly enlarged. Mild diffuse interstitial promin ence, increased from prior exam. Perihilar densities are increased. Band of atelectasis of the right base. No pleural effusion. IMPRESSION: Borderline heart size with new perihilar and interstitial opacity. Correlate for fluid overload and m ild pulmonary vascular congestion.
[2020-02-06 15:17] LABS: Appearance,Urine Cloudy (Clear); Bacteria,Urine Occasional /hpf; Bilirubin,Urine Negative (Negative); Blood,Urine Trace (Negative); Color,Urine Yellow; Glucose,Urine (UA) Negative (Negative); Hyaline Casts,Urine 2 /lpf (0-2); Ketones,Urine Negative (Negative); Leukocyte Esterase,Urine Large (Negative); Nitrite,Urine Negative (Negative); Protein,Urine 3+ (Negative); RBC,Urine 18 /hpf (0-5); Specific Gravity,Urine 1.014 (1.001-1.035); Squamous Epithelial Cell,Urine <1 /hpf (0-4); Urobilinogen,Urine <2.0 mg/dL (<2.0); WBC,Urine >182 /hpf (0-5)
[2020-02-06 15:21] LABS: Albumin 3.4 g/dL (3.5-5.0); Calcium 8.4 mg/dL (8.4-10.2); Potassium 3.3 mmol/L (3.5-5.1); Total Bilirubin 0.8 mg/dL (0.2-1.3); Total Protein 5.5 g/dL (6.3-8.2)
[2020-02-06] MEDS ORDERED: cefTRIAXone IN SWFI 1,000 MG/10 ML SYRINGE IVP STA (15:21)
[2020-02-06] MEDS ORDERED: NALOXONE 0.4 MG/ML 1 ML VIAL IV PRN (15:48)
[2020-02-06] MEDS ORDERED: POTASSIUM CHLORIDE ER 20 MEQ TAB.ER PO STA (15:55)
[2020-02-06] MEDS: SODIUM CHLORIDE 0.9% 1,000 ML IV SCH (16:21)
[2020-02-06 17:26] LABS: Glucose,Whole Blood 115 mg/dL (75-99)
[2020-02-06 18:03] LABS: Glucose,Whole Blood 125 mg/dL (75-99)
[2020-02-06] MEDS: INSULIN ASPART (NovoLOG) 100 UNIT/ML VIAL SQ SCH ×2 (18:04→22:55)
[2020-02-06 20:43] LABS: Glucose,Whole Blood 163 mg/dL (75-99)
[2020-02-06] MEDS ORDERED: traMADol 50 MG TAB PO SCH (21:00)
[2020-02-06] MEDS ORDERED: DONEPEZIL 10 MG TAB PO SCH (21:00)
[2020-02-06] MEDS ORDERED: PRAVASTATIN SODIUM 40 MG TAB PO SCH (21:00)
[2020-02-06] MEDS ORDERED: WARFARIN 5 MG TAB PO SCH (21:00)
[2020-02-06] MEDS ORDERED: HYDROcodone/APAP 5-325MG 1 EACH TAB PO PRN (21:01)
--- NOTE | 2020-02-06 21:57 | P.HPIM ---
History of Present Illness H&P Date: 02/06/20 Chief Complaint: pain left hip history of presenting complaint: this is a 79 year old patient who was recently in the hospital, came in on December 30 and discharge on January 04. Patient presented with a fall and had undergone underwent closed reduction and surgical stabilization of the left femur fracture with cephalo-medullary nailing. patient is seen by orthopedics Dr. Loaiza. Patient be discharged to the [facility]. Patient had been doing well at home. Using a walker to get about. No change in appetite. No fever no chills. This morning was sitting on the toilet seat. The severe pain in the left hip. Unable to get up. EMS had to be called out. They helped him up. Denies any injury. 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 Did smoke in the past. No alcohol. . Physical examination: VITAL SIGNS: [98, 53, 18, 150/75, 98% room air] GENERAL: [BMI 28.7, laying in bed, awake comfortable. EYES: [Pupils equal. Conjunctiva ty]l. HEENT: [External appearance of nose and ears normal, oral cavity grossly normal]. NECK: [JVD not raised; masses not palpable]. HEART: [First and second heart sounds are normal; no edema]. LUNGS:[ Respiratory rate normal; clear to auscultation]. CHEST wall: Right anterior chest wall hemodialysis catheter ABDOMEN: [Soft, nontender, liver spleen not palpable, no masses palpable]. MUSCULAR skeletal: Evidence of OA, able to move his left hip. Joint. . PSYCH: [patient is able tonsil simple questions]l. NEUROLOGICAL: [Cranial nerves grossly intact; no facial asymmetry, power and sensation grossly intact]. LYMPHATICS: [No lymph nodes palpable in the axilla and neck] INVESTIGATIONS, reviewed in the clinical context: white count 3.3 hemoglobin 9 platelets 61 potassium 3.3 creatinine 4.46 blood glucose 89 UA positive for leukoesterase, WBC EKG tracing personally reviewed by me-atrial fibrillation rate controlled Assessment: -Acute left hip pain in a patient who had fracture with nailing about a month ago. No history of trauma. Expect this to be a tendon muscle sprain. -Renal nephrolithiasis-bilateral with laser lithotripsy -End-stage kidney disease on hemodialysis-Friday -Chronic kidney disease stage V, with hypertension -Metabolic acidosis from renal failure -Normocytic anemia likely secondary to chronic kidney disease -Thrombocytopenia -Diabetes mellitus type 2 chronically on insulin -BPH -Coronary artery disease -Moderate cognitive impairment probably from late onset Alzheimer's dementia -COPD -Essential hypertension- -Hyperlipidemia -Primary osteoarthritis -hyponatremia Plan: we'll do computed tomography scan of the left hip. Home medications to be resumed. Consult PTOT. doubt clinically any fracture. Dr. Loaiza from orthopedics will be consulted. Care discussed with the patient. Past Medical History Past Medical History: Atrial Fibrillation, COPD, Dementia, Diabetes Mellitus, Hyperlipidemia, Hypertension, Myocardial Infarction (ID), Renal Disease Additional Past Medical History / Comment(s): kidney stones, dialysis Last Myocardial Infarction Date:: unsure History of Any Multi-Drug Resistant Organisms: None Reported Past Surgical History: Back Surgery, Cholecystectomy, Coronary Bypass/CABG, Heart Catheterization Additional Past Surgical History / Comment(s): placment of shunt for dialysis. 01/01/20 had closed reduction and surgical stabilization of left intertrochanteric femur. Past Anesthesia/Blood Transfusion Reactions: No Reported Reaction Past Psychological History: No Psychological Hx Reported Smoking Status: Former smoker Past Alcohol Use History: None Reported Past Drug Use History: None Reported - Past Family History Mother Family Medical History: Myocardial Infarction (ID) Father Family Medical History: Renal Disease Medications and Allergies Home Medications Medication Instructions Recorded Confirmed Type Tamsulosin HCl [Flomax] 0.4 mg PO BID 02/09/16 02/06/20 History allopurinoL [Zyloprim] 100 mg PO DAILY 02/09/16 02/06/20 History Pravastatin Sodium [Pravachol] 40 mg PO HS 06/30/18 02/06/20 History Donepezil [Aricept] 10 mg PO HS 10/20/19 02/06/20 History hydrALAZINE HCL [Apresoline] 100 mg PO BID 10/20/19 02/06/20 History Insulin NPH Human Isophane 12 unit SQ AC-BID 12/31/19 02/06/20 History [humuLIN N] Sennosides-Docusate Sodium 2 tab PO DAILY #30 tablet 01/04/20 02/06/20 Rx [Senokot-S] Hydrocodone/Acetaminophen [[place] 1 tab PO Q6H PRN 02/06/20 02/06/20 History 7.5-325] Ipratropium-Albuterol Nebulize 3 ml INHALATION RT-Q8H PRN 02/06/20 02/06/20 History [Duoneb 0.5 mg-3 mg/3 ml Soln] Metoprolol Tartrate 25 mg PO MOWEFR 02/06/20 02/06/20 History Metoprolol Tartrate [Lopressor] 25 mg PO BID 02/06/20 02/06/20 History Oil Of Oregano (Unknown Strength) 1 tab PO QAM 02/06/20 02/06/20 History Pantoprazole Sodium [Protonix] 40 mg PO HS 02/06/20 02/06/20 History Warfarin Sodium 4 mg PO HS 02/06/20 02/06/20 History oxyCODONE HCL/ACETAMINOPHEN 1 tab PO TID PRN 02/06/20 02/06/20 History [oxyCODONE HCL/ACETAMINOPHEN 5-325] Allergies Allergy/AdvReac Type Severity Reaction Status Date / Time hyper immune syrum from Allergy Unknown Uncoded 02/06/20 13:38 horses Childhood Physical Exam Vitals: Vital Signs Temp Pulse Pulse Resp BP BP Pulse Ox 02/06/20 17:27 97.7 F 60 18 191/81 98 02/06/20 16:11 54 L 18 158/77 97 02/06/20 14:47 47 L 18 145/58 98 02/06/20 13:33 98.0 F 53 L 18 150/75 98 Intake and Output 02/06/20 02/06/20 02/06/20 06:59 14:59 22:59 Other: Weight 90.718 kg 90.718 kg Results CBC & Chem 7: 02/06/20 14:46 02/06/20 14:46 Labs: Abnormal Lab Results - Last 24 Hours (Table) 02/06/20 02/06/20 02/06/20 Range/Units 14:46 14:46 14:46 WBC 3.3 L (3.8-10.6) k/uL RBC 2.99 L (4.30-5.90) m/uL Hgb 9.0 L D (13.0-17.5) gm/dL Hct 27.6 L (39.0-53.0) % Plt Count 61 L (150-450) k/uL Lymphocytes # 0.4 L (1.0-4.8) k/uL PT 12.9 H (9.0-12.0) sec INR 1.3 H (<1.2) Sodium (137-145) mmol/L Potassium (3.5-5.1) mmol/L BUN (9-20) mg/dL Creatinine (0.66-1.25) mg/dL POC Glucose (mg/dL) (75-99) mg/dL Troponin I (0.000-0.034) ng/mL Total Protein (6.3-8.2) g/dL Albumin (3.5-5.0) g/dL Urine Protein 3+ H (Negative) Urine Blood Trace H (Negative) Ur Leukocyte Esterase Large H (Negative) Urine RBC 18 H (0-5) /hpf Urine WBC >182 H (0-5) /hpf Urine WBC Clumps Many H (None) /hpf Urine Bacteria Occasional H (None) /hpf 02/06/20 02/06/20 02/06/20 Range/Units 14:46 14:46 17:25 WBC (3.8-10.6) k/uL RBC (4.30-5.90) m/uL Hgb (13.0-17.5) gm/dL Hct (39.0-53.0) % Plt Count (150-450) k/uL Lymphocytes # (1.0-4.8) k/uL PT (9.0-12.0) sec INR (<1.2) Sodium 135 L (137-145) mmol/L Potassium 3.3 L (3.5-5.1) mmol/L BUN 34 H (9-20) mg/dL Creatinine 4.46 H (0.66-1.25) mg/dL POC Glucose (mg/dL) 115 H (75-99) mg/dL Troponin I 0.039 H* (0.000-0.034) ng/mL Total Protein 5.5 L (6.3-8.2) g/dL Albumin 3.4 L (3.5-5.0) g/dL Urine Protein (Negative) Urine Blood (Negative) Ur Leukocyte Esterase (Negative) Urine RBC (0-5) /hpf Urine WBC (0-5) /hpf Urine WBC Clumps (None) /hpf Urine Bacteria (None) /hpf 02/06/20 02/06/20 Range/Units 18:01 20:40 WBC (3.8-10.6) k/uL RBC (4.30-5.90) m/uL Hgb (13.0-17.5) gm/dL Hct (39.0-53.0) % Plt Count (150-450) k/uL Lymphocytes # (1.0-4.8) k/uL PT (9.0-12.0) sec INR (<1.2) Sodium (137-145) mmol/L Potassium (3.5-5.1) mmol/L BUN (9-20) mg/dL Creatinine (0.66-1.25) mg/dL POC Glucose (mg/dL) 125 H 163 H (75-99) mg/dL Troponin I (0.000-0.034) ng/mL Total Protein (6.3-8.2) g/dL Albumin (3.5-5.0) g/dL Urine Protein (Negative) Urine Blood (Negative) Ur Leukocyte Esterase (Negative) Urine RBC (0-5) /hpf Urine WBC (0-5) /hpf Urine WBC Clumps (None) /hpf Urine Bacteria (None) /hpf Thrombosis Risk Factor Assmnt - Choose All That Apply Any of the Below Risk Factors Present?: Yes Each Factor Represents 1 point: Abnormal pulmonary function (COPD), Obesity (BMI >25) Other Risk Factors: Yes Each Risk Factor Represents 3 Points: Age 75 years or older Other congenital or acquired thrombophilia - If yes, enter type in comment: Yes Each Risk Factor Represents 5 Points: Hip, pelvis, or leg fracture (< 1 month) Thrombosis Risk Factor Assessment Total Risk Factor Score: 10 Thrombosis Risk Factor Assessment Level: High Risk
[2020-02-06] MEDS: METOPROLOL TARTRATE 25 MG TAB PO SCH (22:54)
[2020-02-06] MEDS: hydrALAZINE HCL 50 MG TAB PO SCH (22:54)
[2020-02-06] MEDS: TAMSULOSIN 0.4 MG CAP.ER.24H PO SCH (22:55)
[2020-02-07] MEDS: INSULIN ASPART (NovoLOG) 100 UNIT/ML VIAL SQ SCH ×4 (01:13→12:17)
[2020-02-07] MEDS: SODIUM BICARBONATE TAB 650 MG TAB PO SCH ×2 (01:13→08:43)
[2020-02-07] MEDS ORDERED: PANTOPRAZOLE 40 MG TABLET PO SCH (07:30)
[2020-02-07 07:37] LABS: Glucose,Whole Blood 117 mg/dL (75-99)
[2020-02-07] MEDS: SODIUM CHLORIDE 0.9% 1,000 ML IV SCH ×2 (07:41)
[2020-02-07] MEDS: IPRATROPIUM-ALBUTEROL 3 ML NEB INHALATION PRN ×2 (08:05→11:24)
[2020-02-07] MEDS: TAMSULOSIN 0.4 MG CAP.ER.24H PO SCH (08:43)
[2020-02-07] MEDS: hydrALAZINE HCL 50 MG TAB PO SCH (08:44)
[2020-02-07] MEDS: METOPROLOL TARTRATE 25 MG TAB PO SCH (08:44)
[2020-02-07 08:47] VITALS: BP 186/93; TEMP 97.6
[2020-02-07] MEDS ORDERED: allopurinoL 100 MG TAB PO SCH (09:00)
[2020-02-07] MEDS ORDERED: SENNOSIDES-DOCUSATE SODIUM 1 EACH TAB PO SCH (09:00)
[2020-02-07 11:25] LABS: Glucose,Whole Blood 150 mg/dL (75-99)
[2020-02-07 11:36] VITALS: PULSE 65
[2020-02-07 12:32] LABS: Albumin 3.5 g/dL (3.5-5.0); Calcium 8.2 mg/dL (8.4-10.2); Potassium 3.7 mmol/L (3.5-5.1); Total Bilirubin 0.8 mg/dL (0.2-1.3); Total Protein 5.4 g/dL (6.3-8.2)
[2020-02-07 12:51] LABS: INR 1.3 (<1.2); Prothrombin Time 13.2 sec (9.0-12.0)
--- NOTE | 2020-02-07 13:43 | CT ---
EXAMINATION TYPE: CT hip LT wo con DATE OF EXAM: 02/07/2020 COMPARISON: Pelvis and bilateral hip radiograph 12/31/2019. Left hip radiograph 01/01/2020. Left hip in traoperative fluoroscopy 01/01/2020. HISTORY: Fall, Lt hip pain CT DLP: 812 mGycm Automated exposure control for dose reduction was used. FINDINGS: There is redemonstrated left intramedullary femoral nail and femoral head and neck intertrochanteric screws, fixing the old comminuted intertrochanteric fracture redemonstrated from 12/31/2019 comparison 's. No evidence of hardware fracture or significant loosening. There is redemonstrated displacement o f the lesser trochanter fracture fragment. The fracture lucency appears similar to 01/01/2020 comparis on given differences in technique. No evidence of dislocation. Degenerative changes of the left hip j oint with osteophytosis, subchondral cysts, and joint space narrowing. Pubic symphysis is maintained, likely with benign bone island of the right pubic symphysis. Vascular calcifications. There may be s mall stones within the urinary bladder. IMPRESSION: 1. Redemonstrated comminuted intertrochanteric fracture of the left femur, status post surgical fixa tion. The displaced fragments and fracture lucency appears similar to 01/01/2020 radiograph comparison given differences in technique. No evidence of hardware fracture. 2. Questionable small stones within the urinary bladder.
--- NOTE | 2020-02-07 20:29 | CONS ---
CONSULTATION REASON FOR CONSULT: End-stage renal disease. HISTORY OF PRESENT ILLNESS: Patient is a 79-year-old male with history of end-stage renal disease, on hemodialysis on a Friday, Friday, Friday schedule. Patient was admitted to the hospital with complaints of increased pain in his left leg. The patient had right hip surgery, which was closed reduction and surgical stabilization of a left femoral fracture along with nailing. He apparently was at home, sat on the toilet seat, and was not able to get up secondary to severe pain. Patient denied any fevers or chills. No nausea, vomiting or diarrhea. PAST MEDICAL HISTORY: End-stage renal disease, osteoarthritis, hypertension, type 2 diabetes, dyslipidemia, BPH, COPD, coronary artery disease, atrial fibrillation. PAST SURGICAL HISTORY: Back surgery, cholecystectomy, coronary artery bypass surgery, cardiac catheterization, coronary stent placement. SOCIAL HISTORY: Negative for smoking currently. Patient is a former smoker. No history of drug abuse or alcohol abuse. MEDICATIONS: Medications prior to admission included Flomax, Zyloprim, Pravachol, Aricept, calcitriol, hydralazine, insulin, Lopressor, sodium bicarb, Coumadin, [place], Protonix, tramadol. ALLERGIES: ALLERGIES include HYPERIMMUNE SERUM FROM HORSES. REVIEW OF SYSTEMS: As per HPI. Other systems negative. PHYSICAL EXAMINATION: Patient is comfortable, awake. He is not in any acute distress. Blood pressure was 186/93, heart rate 85 per minute. Patient appears euvolemic. He does not have any significant edema in his lower extremities. No rash is noted. TAIL RIPPER exam is grossly intact. The patient is alert, oriented x3. LABS: Reviewed. Sodium 136, potassium 3.7, BUN 36, creatinine 4.87, hemoglobin 9.0 g/dL. INR was 1.3. ASSESSMENT: 1. End-stage renal disease, on hemodialysis on a Friday, Friday, Friday schedule. Etiology is diabetic nephropathy. 2. Pyuria. Rule out urinary tract infection. Urine culture has been ordered. The patient has been on Rocephin. 3. Hypertension, uncontrolled, partly secondary to pain. 4. Severe pain, left hip, with history of recent surgery for fracture of left femur with nailing and closed reduction of the fracture. 5. Metabolic acidosis, maintained on oral sodium bicarb. PLAN: Hemodialysis today. Discontinue sodium bicarb. Orthopedic evaluation. MMODL / IJN: [id number] /
--- NOTE | 2020-02-07 21:54 | P.DS ---
Providers Date of admission: 02/06/20 16:26 Expected date of discharge: 02/07/20 Attending physician: Meliton Be Consults: 02/06/20 21:48 Consult Physician Routine Consulting Provider: Karel Melchor Consult Reason/Comments: acute left hip pain Do you want consulting provider notified?: Yes 02/06/20 21:58 Consult Physician Routine Consulting Provider: Kina Cox Consult Reason/Comments: hemodialysis-Friday Do you want consulting provider notified?: Yes Primary care physician: [facility] Course: Chief Complaint: pain left hip history of presenting complaint: this is a 79 year old patient who was recently in the hospital, came in on December 30 and discharge on January 04. Patient presented with a fall and had undergone underwent closed reduction and surgical stabilization of the left femur fracture with cephalo-medullary nailing. patient is seen by orthopedics Dr. Loaiza. Patient be discharged to the F. Patient had been doing well at home. Using a walker to get about. No change in appetite. No fever no chills. This morning was sitting on the toilet seat. The severe pain in the left hip. Unable to get up. EMS had to be called out. They helped him up. Denies any injury. 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 Today-patient seen has resolved. Patient walked well in the hallway. Up and about. Computed tomography scan of the left hip did not show any new fracture. Patient can follow-up with his orthopedic doctor. Discussed with the patient. Questions were answered. Consultation: Dr. Cox from nephrology Physical examination: VITAL SIGNS: 97.6, 65, 18, 1 54 x 80, 96% room air GENERAL: [Sitting up in a chair, comfortable EYES: Pupils equal. Conjunctiva normal. HEENT: External appearance of nose and ears normal, oral cavity grossly normal. NECK: JVD not raised; masses not palpable. HEART: First and second heart sounds are normal; no edema. LUNGS: Respiratory rate normal; clear to auscultation. CHEST wall: Right anterior chest wall hemodialysis catheter ABDOMEN: Soft, nontender, liver spleen not palpable, no masses palpable. MUSCULAR skeletal: Evidence of OA, able to move his left hip. Joint. . PSYCH: Answering questions l. INVESTIGATIONS, reviewed in the clinical context: white count 3.3 hemoglobin 9 platelets 61 potassium 3.3 creatinine 4.46 blood glucose 89 UA positive for leukoesterase, WBC EKG tracing personally reviewed by me-atrial fibrillation rate controlled Assessment: -Acute left hip pain in a patient who had fracture with nailing about a month ago. No history of trauma. Expect this to be a tendon muscle sprain. Computed tomography scan of the left hip does not show any new fracture. Acute muscular skeletal pain left hip. -Renal nephrolithiasis-bilateral with laser lithotripsy -End-stage kidney disease on hemodialysis-Friday -Chronic kidney disease stage V, with hypertension -Metabolic acidosis from renal failure -Normocytic anemia likely secondary to chronic kidney disease -Thrombocytopenia -Diabetes mellitus type 2 chronically on insulin -BPH -Coronary artery disease -Moderate cognitive impairment probably from late onset Alzheimer's dementia -COPD -Essential hypertension- -Hyperlipidemia -Primary osteoarthritis -hyponatremia Disposition: Home Patient Condition at Discharge: Stable Plan - Discharge Summary Discharge Rx Participant: No New Discharge Prescriptions: New Cephalexin [Keflex] 500 mg PO DAILY 3 Days #5 cap calcitrioL [Rocaltrol] 0.25 mcg PO MoTuWeThFr #30 cap Sodium Bicarbonate Tab 1,300 mg PO BID #60 tab Continue allopurinoL [Zyloprim] 100 mg PO DAILY Tamsulosin HCl [Flomax] 0.4 mg PO BID Pravastatin Sodium [Pravachol] 40 mg PO HS hydrALAZINE HCL [Apresoline] 100 mg PO BID Donepezil [Aricept] 10 mg PO HS Insulin NPH Human Isophane [humuLIN N] 12 unit SQ AC-BID Sennosides-Docusate Sodium [Senokot-S] 2 tab PO DAILY #30 tablet Oil Of Oregano (Unknown Strength) 1 tab PO QAM Hydrocodone/Acetaminophen [[place] 7.5-325] 1 tab PO Q6H PRN PRN Reason: Pain Metoprolol Tartrate 25 mg PO MOWEFR Metoprolol Tartrate [Lopressor] 25 mg PO BID Pantoprazole Sodium [Protonix] 40 mg PO HS Warfarin Sodium 4 mg PO HS Ipratropium-Albuterol Nebulize [Duoneb 0.5 mg-3 mg/3 ml Soln] 3 ml INHALATION RT-Q8H PRN PRN Reason: Shortness Of Breath oxyCODONE HCL/ACETAMINOPHEN [oxyCODONE HCL/ACETAMINOPHEN 5-325] 1 tab PO TID PRN PRN Reason: Pain Discharge Medication List Tamsulosin HCl [Flomax] 0.4 mg PO BID 02/09/16 [History] allopurinoL [Zyloprim] 100 mg PO DAILY 02/09/16 [History] Pravastatin Sodium [Pravachol] 40 mg PO HS 06/30/18 [History] Donepezil [Aricept] 10 mg PO HS 10/20/19 [History] hydrALAZINE HCL [Apresoline] 100 mg PO BID 10/20/19 [History] Insulin NPH Human Isophane [humuLIN N] 12 unit SQ AC-BID 12/31/19 [History] Sennosides-Docusate Sodium [Senokot-S] 2 tab PO DAILY #30 tablet 01/04/20 [Rx] Hydrocodone/Acetaminophen [[place] 7.5-325] 1 tab PO Q6H PRN 02/06/20 [History] Ipratropium-Albuterol Nebulize [Duoneb 0.5 mg-3 mg/3 ml Soln] 3 ml INHALATION RT-Q8H PRN 02/06/20 [History] Metoprolol Tartrate 25 mg PO MOWEFR 02/06/20 [History] Metoprolol Tartrate [Lopressor] 25 mg PO BID 02/06/20 [History] Oil Of Oregano (Unknown Strength) 1 tab PO QAM 02/06/20 [History] Pantoprazole Sodium [Protonix] 40 mg PO HS 02/06/20 [History] Warfarin Sodium 4 mg PO HS 02/06/20 [History] oxyCODONE HCL/ACETAMINOPHEN [oxyCODONE HCL/ACETAMINOPHEN 5-325] 1 tab PO TID PRN 02/06/20 [History] Cephalexin [Keflex] 500 mg PO DAILY 3 Days #5 cap 02/07/20 [Rx] Sodium Bicarbonate Tab 1,300 mg PO BID #60 tab 02/07/20 [Rx] calcitrioL [Rocaltrol] 0.25 mcg PO MoTuWeThFr #30 cap 02/07/20 [Rx] Follow up Appointment(s)/Referral(s): Dereck Greenberg MD [Primary Care Provider] - 02/16/20 1:30 pm () Patient Instructions/Handouts: Urinary Tract Infection in Men (DC), Fall Prevention for Older Adults (DC) Discharge Disposition: HOME WITH HOME HEALTH SERVICES
== END 2020-02-07 13:27 | disposition home health service (06) ==
LOC: EC 13:27 → 4SSUR 16:26
PROVIDERS: ADMIT Hospitalist; ATTEND Hospitalist
DX: M25.552 Pain in left hip (principal); R53.1 Weakness; E86.0 Dehydration; I48.91 Unspecified atrial fibrillation; S72.92XD Unspecified fracture of left femur, subsequent encounter for closed fracture with routine healing; N20.0 Calculus of kidney; N18.6 End stage renal disease; Z79.01 Long term (current) use of anticoagulants; Z79.4 Long term (current) use of insulin; Z79.899 Other long term (current) drug therapy; Z99.2 Dependence on renal dialysis; I12.0 Hypertensive chronic kidney disease with stage 5 chronic kidney disease or end stage renal disease; E87.2 Acidosis; R82.81 Pyuria; D63.1 Anemia in chronic kidney disease; D69.6 Thrombocytopenia, unspecified; E11.22 Type 2 diabetes mellitus with diabetic chronic kidney disease; N40.0 Benign prostatic hyperplasia without lower urinary tract symptoms; I25.10 Atherosclerotic heart disease of native coronary artery without angina pectoris; G31.84 Mild cognitive impairment of uncertain or unknown etiology; J44.9 Chronic obstructive pulmonary disease, unspecified; E78.5 Hyperlipidemia, unspecified; M19.91 Primary osteoarthritis, unspecified site; E87.1 Hypo-osmolality and hyponatremia; Z95.5 Presence of coronary angioplasty implant and graft; Z95.1 Presence of aortocoronary bypass graft; Z87.891 Personal history of nicotine dependence
CPT/HCPCS: 96361; 96374; 99285; 36415; 94640 ×2; 93005; 97162; 97166; 80053 ×2; 83605; 83735; 84484; 85025; 85610 ×2; 85730; 81001; 87040; 87086; 87077; 87186; 71046; 73700; G0378 ×2; J0696

== ENCOUNTER 2020-11-16 06:10 | Day surgery (SDC) | payer MEDICARE, BC ==
[2020-11-15 12:04] VITALS: BMI 30.1
[~2020-11-16 06:10] MED LIST: SODIUM CHLORIDE 0.9% 1,000 ML in EMPTY BAG 1 BAG IV ONE
[2020-11-16 06:41] LABS: Glucose,Whole Blood 193 mg/dL (75-99)
[2020-11-16 06:42] VITALS: RESP 18; TEMP 98.3
[2020-11-16 06:45] LABS: Basophils % (A) 1 %; Eosinophils # (A) 0.1 k/uL (0-0.7); Eosinophils % (A) 2 %; HCT 35.3 % (39.0-53.0); HGB 12.4 gm/dL (13.0-17.5); Lymphocytes % (A) 16 %; MCH 31.4 pg (25.0-35.0); MCV 89.7 fL (80.0-100.0); Mean Platelet Volume 9.2; Monocytes # (A) 1.1 k/uL (0-1.0); Monocytes % (A) 19 %; Neutrophils # (A) 3.5 k/uL (1.3-7.7); Neutrophils % (A) 60 %; RBC 3.93 m/uL (4.30-5.90); RDW 13.4 % (11.5-15.5); WBC 5.9 k/uL (3.8-10.6)
[2020-11-16 06:56] LABS: INR 1.1 (<1.2); Prothrombin Time 11.9 sec (9.0-12.0)
[2020-11-16 06:57] LABS: Calcium 9.4 mg/dL (8.4-10.2); Potassium 3.8 mmol/L (3.5-5.1)
[2020-11-16 07:07] LABS: Platelet Count 84 k/uL (150-450)
[2020-11-16] MEDS ORDERED: MIDAZOLAM 2 MG/2 ML VIAL IV ONE (07:43)
[2020-11-16] MEDS ORDERED: fentaNYL (PF) 50 MCG/ML 2 ML AMP IV ONE (07:43)
[2020-11-16] MEDS ORDERED: LIDOCAINE 1% INJ 10MG/ML (20 ML MDV) SQ ONE (07:46)
[2020-11-16] MEDS ORDERED: IOPAMIDOL-250 100ML BTL IV ONE (08:15)
--- NOTE | 2020-11-16 08:37 | P.OP ---
Date of Procedure: 11/16/20 Description of Procedure: Preoperative diagnosis: [End-stage renal disease, prolonged bleeding, elevated velocities likely stenosis of fistula] Postoperative diagnosis: Same, outflow stenosis Procedure: [#1 ultrasound guided right upper extremity basilic fistula access #2 right upper extremity fistula gram #3 percutaneous transluminal balloon angioplasty with 8 x 40 high-pressure balloon #4 percutaneous transluminal balloon angioplasty 7 x 40 drug-coated balloon #5 28 minutes moderate conscious sedation] Surgeon: Kimmy Spicer D.O. EBL: [Less than 5 mL] IV fluids: [See records] Urine output: [None] Drains: [None] Complications: [None immediately apparent] Condition: [Stable to recovery] Operative indication and findings: [Patient is a 80-year-old male who has had a right upper extremity brachiobasilic fistula that is functioning well. In the past proximal 9 months ago he had a fistula gram requiring balloon angioplasty per his report. Since then he has had some increasing prolonged leading up to 45 minutes on occasion and ultrasound of the office showed elevated velocities of the venous outflow. Plan was to go forward with a fistulogram. Risks and benefits were discussed. He seemingly understood and was the patient was taken to the willing to proceed as such] Procedure in detail: [Patient was taken to the special suite and placed in supine position. The right upper extremity was prepped and draped in usual sterile fashion. A preprocedure timeout was performed, all parties were in agreement. The ultrasound was utilized and the fistula was visualized. A micropuncture needle was used and the fistula was accessed. Seldinger technique was used to place a 6-Persian sheath. A fistulogram was performed. Occlusion of the fistula was performed to visualize the inflow anastomosis was was patent without any evidence of significant stenosis. An outflow fistula gram wasn't performed revealing a near occlusion at the distal basilic vein. Central venogram was performed showing no evidence of central stenosis. Guidewires were used and a 8 x 40 balloon was insufflated at the level of the significant stenosis with significant improvement of waist. A repeat venogram was performed revealing near resolution of the stenosis. A 7 x 40 drug-coated balloon was insufflated at this level and insufflated to 14 to increase its maximum diameter as this was otherwise the largest drug-coated balloon available. Catheters and wires were removed. A repeat venogram was performed revealing resolution of the stenosis. The sheath was removed after [id number] suture was placed for hemostasis. Patient tolerated the procedure well] Plan - Discharge Summary Discharge Rx Participant: No New Discharge Prescriptions: No Action Tamsulosin HCl [Flomax] 0.4 mg PO BID Pravastatin Sodium [Pravachol] 40 mg PO HS hydrALAZINE HCL [Apresoline] 50 mg PO BID Donepezil [Aricept] 10 mg PO HS Insulin NPH Human Isophane [humuLIN N] 12 unit SQ AC-BID PRN PRN Reason: high blood sugar Sennosides-Docusate Sodium [Senokot-S] 2 tab PO DAILY #30 tablet Metoprolol Tartrate 25 mg PO MOWEFR Pantoprazole Sodium [Protonix] 40 mg PO HS Warfarin Sodium 2.5 mg PO HS Ipratropium-Albuterol Nebulize [Duoneb 0.5 mg-3 mg/3 ml Soln] 3 ml INHALATION RT-Q8H PRN PRN Reason: Shortness Of Breath Magnesium 200 mg PO DAILY sevelamer HCL [Sevelamer HCl] 800 mg PO AC-TID Metoprolol Tartrate [Lopressor] 25 mg PO BID Dialyvite 800 mg PO DAILY Discharge Medication List Tamsulosin HCl [Flomax] 0.4 mg PO BID 02/09/16 [History] Pravastatin Sodium [Pravachol] 40 mg PO HS 06/30/18 [History] Donepezil [Aricept] 10 mg PO HS 10/20/19 [History] hydrALAZINE HCL [Apresoline] 50 mg PO BID 10/20/19 [History] Insulin NPH Human Isophane [humuLIN N] 12 unit SQ AC-BID PRN 12/31/19 [History] Sennosides-Docusate Sodium [Senokot-S] 2 tab PO DAILY #30 tablet 01/04/20 [Rx] Ipratropium-Albuterol Nebulize [Duoneb 0.5 mg-3 mg/3 ml Soln] 3 ml INHALATION RT-Q8H PRN 02/06/20 [History] Metoprolol Tartrate 25 mg PO MOWEFR 02/06/20 [History] Pantoprazole Sodium [Protonix] 40 mg PO HS 02/06/20 [History] Warfarin Sodium 2.5 mg PO HS 02/06/20 [History] Dialyvite 800 mg PO DAILY 11/15/20 [History] Magnesium 200 mg PO DAILY 11/15/20 [History] Metoprolol Tartrate [Lopressor] 25 mg PO BID 11/15/20 [History] sevelamer HCL [Sevelamer HCl] 800 mg PO AC-TID 11/15/20 [History] Activity/Diet/Wound Care/Special Instructions: Patient may resume regular activities. Resume home medications including anticoagulation. May continue with dialysis tomorrow. Dialysis to remove Prolene suture tomorrow. If they are unwilling to do so, patient will need to follow up with me in 1 week. Otherwise follow-up in 3 months. Discharge Disposition: HOME SELF-CARE
--- NOTE | 2020-11-16 09:57 | IR ---
EXAMINATION TYPE: IR fistula/abscess/sinus tract DATE OF EXAM: 11/16/2020 COMPARISON: NONE HISTORY: Fluoroscopy time. Fluoroscopy was provided to the referring clinician.
[2020-11-16 10:26] VITALS: BP 128/55; PULSE 58
== END 2020-11-16 10:42 | disposition home or self-care (01) ==
LOC: CATHCVL 06:10
PROVIDERS: ATTEND Surgery
DX: T82.858A Stenosis of other vascular prosthetic devices, implants and grafts, initial encounter (principal); I13.11 Hypertensive heart and chronic kidney disease without heart failure, with stage 5 chronic kidney disease, or end stage renal disease; E11.22 Type 2 diabetes mellitus with diabetic chronic kidney disease; N18.6 End stage renal disease; Z99.2 Dependence on renal dialysis; Z20.822 Contact with and (suspected) exposure to COVID-19; I48.91 Unspecified atrial fibrillation; I25.10 Atherosclerotic heart disease of native coronary artery without angina pectoris; J44.9 Chronic obstructive pulmonary disease, unspecified; F03.90 Unspecified dementia, unspecified severity, without behavioral disturbance, psychotic disturbance, mood disturbance, and anxiety; E78.5 Hyperlipidemia, unspecified; Z98.890 Other specified postprocedural states; Z95.1 Presence of aortocoronary bypass graft; Z90.49 Acquired absence of other specified parts of digestive tract; Z87.891 Personal history of nicotine dependence; Z79.899 Other long term (current) drug therapy
CPT/HCPCS: 76080; 37248; 80048; 85025; 85610; 87635; C1894 ×3; C1769 ×4; C1725; C2623; J2250; J2001; J3010; Q9966

== ENCOUNTER 2020-12-20 06:24 | Day surgery (SDC) | payer MEDICARE, BC ==
[2020-12-19 12:19] VITALS: BMI 31.5
[~2020-12-20 06:24] MED LIST changes: +ALPRAZolam 0.25 MG TAB PO PRN; +ALPRAZolam 0.5 MG TAB PO PRN; +ASPIRIN 325 MG TAB PO STA; +ATORVASTATIN 80 MG TAB PO STA; +HEPARIN SODIUM,PORCINE 10,000 UNIT in SODIUM CHLORIDE 0.9% 1,000 ML IRRIGATION PRN; +HEPARIN SODIUM,PORCINE 2,500 UNIT in SODIUM CHLORIDE 0.9% 250 ML IRRIGATION PRN; +NITROGLYCERIN SL TABS 0.4 MG TAB SUBLINGUAL PRN
[2020-12-20 07:01] LABS: Glucose,Whole Blood 223 mg/dL (75-99)
[2020-12-20] MEDS ORDERED: LIDOCAINE 1% INJ 10MG/ML (20 ML MDV) ONE (07:13)
[2020-12-20] MEDS: INSULIN ASPART (NovoLOG) 100 UNIT/ML VIAL SQ SCH ×3 (07:20→13:06)
[2020-12-20 07:27] LABS: Basophils % (A) 0 %; Eosinophils # (A) 0.1 k/uL (0-0.7); Eosinophils % (A) 2 %; HCT 32.6 % (39.0-53.0); HGB 11.6 gm/dL (13.0-17.5); Lymphocytes # (A) 0.9 k/uL (1.0-4.8); Lymphocytes % (A) 12 %; MCH 31.4 pg (25.0-35.0); MCHC 35.7 g/dL (31.0-37.0); MCV 88.1 fL (80.0-100.0); Mean Platelet Volume 9.6; Monocytes # (A) 1.4 k/uL (0-1.0); Monocytes % (A) 19 %; Neutrophils # (A) 4.6 k/uL (1.3-7.7); Neutrophils % (A) 64 %; RBC 3.71 m/uL (4.30-5.90); RDW 13.6 % (11.5-15.5); WBC 7.1 k/uL (3.8-10.6)
[2020-12-20] MEDS ORDERED: fentaNYL (PF) 50 MCG/ML 2 ML AMP ONE (07:28)
[2020-12-20] MEDS ORDERED: fentaNYL (PF) 50 MCG/ML 2 ML AMP IV ONE (07:35)
[2020-12-20 07:41] LABS: INR 1.1 (<1.2); Prothrombin Time 11.7 sec (9.0-12.0)
[2020-12-20] MEDS ORDERED: LIDOCAINE 1% INJ 10MG/ML (20 ML MDV) SQ ONE (07:41)
[2020-12-20 07:50] LABS: Platelet Count 67 k/uL (150-450)
[2020-12-20 07:51] LABS: Calcium 9.6 mg/dL (8.4-10.2); Potassium 4.5 mmol/L (3.5-5.1)
[2020-12-20] MEDS ORDERED: IOPAMIDOL-370 100ML BTL INJ ONE ×2 (07:55→08:02)
[2020-12-20] MEDS ORDERED: INSULIN NPH 300 UNIT/3 ML VIAL SQ PRN (08:20)
[2020-12-20] MEDS ORDERED: RX INFO: IV CONTRAST WAS GIVEN 1 EACH MISC MISCELLANE PRN (08:20)
[2020-12-20] MEDS ORDERED: SODIUM CHLORIDE 0.9% 1,000 ML IV SCH (08:30)
--- NOTE | 2020-12-20 08:58 | CC ---
CARDIAC CATHETERIZATION REPORT PROCEDURE PERFORMED: Cardiac catheterization. INDICATION: Mr. Magallanes is a 80-year-old male with a known history of coronary artery disease status post coronary artery bypass grafting, history of hypertension, hyperlipidemia, diabetes mellitus, and end-stage renal disease, was being evaluated for renal transplant. He recently underwent a myocardial perfusion imaging as part of his evaluation for a transplant and was found to have evidence of inducible ischemia. In view of that, recommendation was made regarding cardiac catheterization. The procedure as well as the risks and the complications were discussed with the patient who is in full understanding and agreement. PROCEDURE: Patient was brought to the laborer bituminous paving in a fasting semi-sedated state after receiving fentanyl and Benadryl and achieving moderate conscious sedated state. Using Xylocaine anesthesia and Seldinger technique a 6-[place] sheath was introduced in the right femoral artery. Selective right and left coronary angiography performed using 6-[place] 4 bend right Breanne catheter. Multiple views of the coronary artery including hemiaxial views obtained. The 6-[place] right Breanne was used to cannulate the LORENZO to LAD and the radial artery to the obtuse marginal branch. Images of the grafts were obtained. Following that, a 6-[place] tight pigtail catheter was introduced into the left ventricle and pressures were calculated. Following the catheter and sheaths were removed. Hemostasis was obtained with deployment of an Angio-Seal. There was no immediate complication. Patient was returned to his room in stable condition. FINDIN. FLUOROSCOPY: There was severe calcification involving all the coronary arteries. 2. LEFT MAIN: This is a large-sized vessel, bifurcating into left circumflex, left anterior descending artery. Left main coronary artery has a 20% to 30% plaque in the mid segment. 3. LEFT ANTERIOR DESCENDING ARTERY. This vessel has a tubular lesion of about 90% proximally at the takeoff of the first diagonal branch. There is a 99% stenosis involving the proximal segment of the diagonal branch after the second diagonal branch. The LAD is totally occluded with no significant antegrade flow. There is retrograde flow into the LORENZO. 4. LEFT CIRCUMFLEX: This is a nondominant vessel, large in caliber, giving rise to 2 obtuse marginal branches. The left circumflex at the first obtuse marginal branch is totally occluded. Second obtuse marginal branch has a 99% stenosis. 5. RIGHT CORONARY ARTERY: This is a large dominant vessel bifurcating distally PDA and posterolateral segment branches. The right coronary artery has diffuse mild plaquing of 10 to 20% without any evidence of high-grade stenosis. 6. Radial artery bypass in the obtuse marginal branch 1 and 2. The proximal and distal anastomotic sites are patent. Both obtuse marginal branches have good flow. There is no evidence of high-grade stenosis in the distal flow. 7. The LORENZO to the LAD and diagonal branch. Both arms of the graft are patent. The distal anastomotic site is patent. The flow into the LAD and the diagonal branch is brisk. 8. LEFT VENTRICULOGRAM: Not performed. HEMODYNAMICS: There was no gradient across the aortic valve. The left ventricular end-diastolic pressure was 10-12 mmHg. CONCLUSION: 1. Chronically occluded LAD and left circumflex. 2. Patent LORENZO to LAD and diagonal branches. 3. Patent radial artery bypass to the obtuse marginal branch 1 and 2. 4. Mild diffuse disease in the RCA. RECOMMENDATION: In view of finding anatomy, I recommend to continue medical therapy. At this time I see no contraindication from the cardiac standpoint to proceed with his scheduled evaluation for renal transplant. Those findings and recommendations were discussed with the patient and his family and they are in full understanding and agreement. Duration of the sedation is 23 minutes. MMODL / IJN: [id number] /
[2020-12-20] MEDS ORDERED: DIALYVITE PO SCH (09:00)
[2020-12-20] MEDS ORDERED: MAGNESIUM OXIDE 400 MG TAB PO SCH (09:00)
[2020-12-20 10:36] LABS: Glucose,Whole Blood 293 mg/dL (75-99)
[2020-12-20] MEDS ORDERED: METOPROLOL TARTRATE 25 MG TAB PO SCH ×2 (11:00→14:00)
[2020-12-20 11:52] LABS: Glucose,Whole Blood 269 mg/dL (75-99)
[2020-12-20] MEDS ORDERED: SEVELAMER 800 MG TAB PO SCH (12:30)
[2020-12-20 14:40] VITALS: BP 144/66; PULSE 58; RESP 16; TEMP 97.7
[2020-12-20] MEDS ORDERED: WARFARIN 5 MG TAB PO ONE (18:00)
[2020-12-20] MEDS ORDERED: PANTOPRAZOLE 40 MG TABLET PO SCH (21:00)
[2020-12-20] MEDS ORDERED: DONEPEZIL 10 MG TAB PO SCH (21:00)
[2020-12-20] MEDS ORDERED: NON FORMULARY DRUG (Warfarin Sodium [Warfarin Sodium] 4 MG Tablet) PO SCH (21:00)
[2020-12-20] MEDS ORDERED: hydrALAZINE HCL 50 MG TAB PO SCH (21:00)
[2020-12-20] MEDS ORDERED: TAMSULOSIN 0.4 MG CAP.ER.24H PO SCH (21:00)
[2020-12-21] MEDS ORDERED: SENNOSIDES-DOCUSATE SODIUM 1 EACH TAB PO SCH (09:00)
[2020-12-21] MEDS ORDERED: PRAVASTATIN SODIUM 40 MG TAB PO SCH (21:00)
== END 2020-12-20 16:06 | disposition home or self-care (01) ==
LOC: CATHCVL 06:24 → 6NMEDSUR 10:42 → CATHCVL 16:06
PROVIDERS: ATTEND Internal Medicine Interventional Cardiology
DX: I25.10 Atherosclerotic heart disease of native coronary artery without angina pectoris (principal); I25.84 Coronary atherosclerosis due to calcified coronary lesion; I25.82 Chronic total occlusion of coronary artery; Z95.1 Presence of aortocoronary bypass graft; E78.2 Mixed hyperlipidemia; Z87.891 Personal history of nicotine dependence; I27.20 Pulmonary hypertension, unspecified; I08.1 Rheumatic disorders of both mitral and tricuspid valves; Z82.49 Family history of ischemic heart disease and other diseases of the circulatory system; I48.20 Chronic atrial fibrillation, unspecified; Z79.01 Long term (current) use of anticoagulants; I12.0 Hypertensive chronic kidney disease with stage 5 chronic kidney disease or end stage renal disease; E11.22 Type 2 diabetes mellitus with diabetic chronic kidney disease; N18.6 End stage renal disease; Z79.4 Long term (current) use of insulin
CPT/HCPCS: 93459; 80048; 85025; 85610; C1760; C1894; C1769; J2001; J3010; Q9967

== ENCOUNTER 2021-05-05 09:54 | Emergency (ER) | payer BC, MEDICARE ==
[2021-05-05 10:09] VITALS: RESP 18
--- NOTE | 2021-05-05 10:30 | ED ---
General Adult HPI - General Chief complaint: Extremity Injury, Lower Stated complaint: Lt leg swelling Time Seen by Provider: 05/05/21 10:10 Source: patient, family, RN notes reviewed Mode of arrival: wheelchair Limitations: no limitations - History of Present Illness Initial comments: Patient is a pleasant 80-year-old male presenting to the emergency Department with complaints of left leg swelling. Symptoms have been present for 1-2 months. No significant discomfort. No history of similar symptoms previously. No chest pain. Patient does have some mild exertional dyspnea that has also been present for the past month or 2. No fevers. No redness. No cough. No orthopnea. - Related Data Home Medications Medication Instructions Recorded Confirmed Pravastatin Sodium [Pravachol] 40 mg PO HS 06/30/18 05/05/21 Donepezil [Aricept] 10 mg PO HS 10/20/19 05/05/21 Metoprolol Tartrate 25 mg PO MOWEFR@1200 02/06/20 05/05/21 Pantoprazole Sodium [Protonix] 40 mg PO HS 02/06/20 05/05/21 Dialyvite 1 tab PO DAILY 11/15/20 05/05/21 Metoprolol Tartrate [Lopressor] 25 mg PO SUTUTHSA@0900,2100 11/15/20 05/05/21 Allopurinol [Zyloprim] 100 mg PO DAILY 05/05/21 05/05/21 Citalopram Hydrobromide [CeleXA] 20 mg PO DAILY 05/05/21 05/05/21 Eszopiclone [Lunesta] 2 mg PO HS 05/05/21 05/05/21 Lidocaine-Prilocaine Cream [Emla 1 applic TOPICAL MOWEFR PRN 05/05/21 05/05/21 Cream 2.5%/2.5%] Warfarin Sodium 5 mg PO TUTHSA 05/05/21 05/05/21 Warfarin [Coumadin] 7.5 mg PO SUMOWEFR 05/05/21 05/05/21 hydrALAZINE HCL [Apresoline] 50 mg PO BID 05/05/21 05/05/21 Allergies Allergy/AdvReac Type Severity Reaction Status Date / Time hyper immune syrum from Allergy Unknown Uncoded 05/05/21 12:46 horses Childhood Review of Systems ROS Statement: Those systems with pertinent positive or pertinent negative responses have been documented in the HPI. ROS Other: All systems not noted in ROS Statement are negative. Constitutional: Denies: fever Eyes: Denies: eye pain ENT: Denies: ear pain Respiratory: Reports: as per HPI. Denies: cough Cardiovascular: Denies: chest pain Endocrine: Denies: fatigue Gastrointestinal: Denies: nausea Genitourinary: Denies: dysuria Musculoskeletal: Denies: back pain Skin: Denies: rash Psychiatric: Denies: depression Past Medical History Past Medical History: Atrial Fibrillation, COPD, Dementia, Diabetes Mellitus, Hyperlipidemia, Hypertension, Myocardial Infarction ([place]), Renal Disease Additional Past Medical History / Comment(s): kidney stones, dialysis M-W-. vertigo. gait unsteady uses walker, waiting to get on the list for a kidney transplant. Last Myocardial Infarction Date:: unsure History of Any Multi-Drug Resistant Organisms: None Reported Past Surgical History: Back Surgery, Cholecystectomy, Coronary Bypass/CABG, Heart Catheterization Additional Past Surgical History / Comment(s): placment of shunt for dialysis. 01/01/20 had closed reduction and surgical stabilization of left intertrochanteric femur. triple bypass Past Anesthesia/Blood Transfusion Reactions: No Reported Reaction Past Psychological History: No Psychological Hx Reported Smoking Status: Never smoker Past Alcohol Use History: None Reported Past Drug Use History: Marijuana - Past Family History Mother Family Medical History: Myocardial Infarction ([place]) Father Family Medical History: Renal Disease General Exam Limitations: no limitations General appearance: alert, in no apparent distress Head exam: Present: normocephalic Eye exam: Present: normal appearance Neck exam: Present: normal inspection Respiratory exam: Present: normal lung sounds bilaterally. Absent: respiratory distress, wheezes, accessory muscle use Cardiovascular Exam: Present: irregular rhythm Expanded Peripheral pulses: 2+: Posterior Tibialis (L), Dorsalis Pedis (L) GI/Abdominal exam: Present: soft. Absent: tenderness Extremities exam: Present: pedal edema (Left lower leg edema), calf tenderness (Minimal on the left) Back exam: Present: normal inspection Neurological exam: Present: alert Psychiatric exam: Present: normal affect, normal mood Skin exam: Absent: erythema Course Vital Signs 05/05/21 05/05/21 10:04 12:43 Temperature 97.9 F Pulse Rate 65 57 L Respiratory 18 18 Rate Blood Pressure 155/57 167/73 O2 Sat by Pulse 99 98 Oximetry EKG Findings - EKG Comments: EKG Findings:: Prior EKG reviewed. A. fib with rate of 56. QRS 152. QT 546. QTc 526. Left axis. Right bundle branch block. Left anterior fascicular block. LVH criteria. Inferior and lateral T wave inversion. Medical Decision Making - Medical Decision Making Case was discussed with Dr. Be who did come evaluate patient. He feels patient can be safely discharged. He does recommend follow-up and Zen bandage. Patient and family updated. - Lab Data Result diagrams: 05/05/21 10:35 05/05/21 10:35 Lab Results 05/05/21 05/05/21 05/05/21 Range/Units 10:35 10:35 10:35 WBC 4.4 (3.8-10.6) k/uL RBC 2.87 L (4.30-5.90) m/uL Hgb 9.4 L (13.0-17.5) gm/dL Hct 27.0 L (39.0-53.0) % MCV 93.9 (80.0-100.0) fL MCH 32.7 (25.0-35.0) pg MCHC 34.8 (31.0-37.0) g/dL RDW 15.4 (11.5-15.5) % Plt Count 78 L (150-450) k/uL MPV 9.3 Neutrophils % 69 % Lymphocytes % 14 % Monocytes % 12 % Eosinophils % 2 % Basophils % 0 % Neutrophils # 3.0 (1.3-7.7) k/uL Lymphocytes # 0.6 L (1.0-4.8) k/uL Monocytes # 0.5 (0-1.0) k/uL Eosinophils # 0.1 (0-0.7) k/uL Basophils # 0.0 (0-0.2) k/uL Manual Slide Review Performed PT 21.3 H (9.0-12.0) sec INR 2.2 H (<1.2) APTT 34.7 H (22.0-30.0) sec D-Dimer 0.67 H (<0.60) mg/L FEU Sodium 134 L (137-145) mmol/L Potassium 4.2 (3.5-5.1) mmol/L Chloride 94 L (98-107) mmol/L Carbon Dioxide 32 H (22-30) mmol/L Anion Gap 8 mmol/L BUN 21 H (9-20) mg/dL Creatinine 4.78 H (0.66-1.25) mg/dL Est GFR (CKD-EPI)AfAm 12 (>60 ml/min/1.73 sqM) Est GFR (CKD-EPI)NonAf 11 (>60 ml/min/1.73 sqM) Glucose 222 H (74-99) mg/dL Plasma Lactic Acid Dave (0.7-2.0) mmol/L Calcium 8.9 (8.4-10.2) mg/dL Total Bilirubin 0.6 (0.2-1.3) mg/dL AST 22 (17-59) U/L ALT 20 (4-49) U/L Alkaline Phosphatase 76 (38-126) U/L Troponin I (0.000-0.034) ng/mL NT-Pro-B Natriuret Pep pg/mL Total Protein 6.1 L (6.3-8.2) g/dL Albumin 3.9 (3.5-5.0) g/dL 05/05/21 05/05/21 05/05/21 Range/Units 10:35 10:35 10:45 WBC (3.8-10.6) k/uL RBC (4.30-5.90) m/uL Hgb (13.0-17.5) gm/dL Hct (39.0-53.0) % MCV (80.0-100.0) fL MCH (25.0-35.0) pg MCHC (31.0-37.0) g/dL RDW (11.5-15.5) % Plt Count (150-450) k/uL MPV Neutrophils % % Lymphocytes % % Monocytes % % Eosinophils % % Basophils % % Neutrophils # (1.3-7.7) k/uL Lymphocytes # (1.0-4.8) k/uL Monocytes # (0-1.0) k/uL Eosinophils # (0-0.7) k/uL Basophils # (0-0.2) k/uL Manual Slide Review PT (9.0-12.0) sec INR (<1.2) APTT (22.0-30.0) sec D-Dimer (<0.60) mg/L FEU Sodium (137-145) mmol/L Potassium (3.5-5.1) mmol/L Chloride (98-107) mmol/L Carbon Dioxide (22-30) mmol/L Anion Gap mmol/L BUN (9-20) mg/dL Creatinine (0.66-1.25) mg/dL Est GFR (CKD-EPI)AfAm (>60 ml/min/1.73 sqM) Est GFR (CKD-EPI)NonAf (>60 ml/min/1.73 sqM) Glucose (74-99) mg/dL Plasma Lactic Acid Dave 2.0 (0.7-2.0) mmol/L Calcium (8.4-10.2) mg/dL Total Bilirubin (0.2-1.3) mg/dL AST (17-59) U/L ALT (4-49) U/L Alkaline Phosphatase (38-126) U/L Troponin I 0.027 (0.000-0.034) ng/mL NT-Pro-B Natriuret Pep 67570 pg/mL Total Protein (6.3-8.2) g/dL Albumin (3.5-5.0) g/dL - Radiology Data Radiology results: image reviewed (Chest x-ray shows chronic changes) Disposition Clinical Impression: Leg edema Disposition: HOME SELF-CARE Condition: Stable Instructions (If sedation given, give patient instructions): Leg Edema (ED) Additional Instructions: Please follow-up with primary care physician in the next day or 2 for recheck. Please continue with dialysis and discussed symptoms with your joinery machinist as well. Return for increased leg swelling or leg pain, redness, difficulty breathing, chest pain, worsening symptoms or other concerns. Is patient prescribed a controlled substance at d/c from ED?: No Referrals: Dereck Greenberg MD [Primary Care Provider] - 1-2 days Time of Disposition: 13:20
[2021-05-05 11:01] LABS: Basophils % (A) 0 %; Eosinophils # (A) 0.1 k/uL (0-0.7); Eosinophils % (A) 2 %; HGB 9.4 gm/dL (13.0-17.5); Lymphocytes # (A) 0.6 k/uL (1.0-4.8); Lymphocytes % (A) 14 %; MCH 32.7 pg (25.0-35.0); MCHC 34.8 g/dL (31.0-37.0); MCV 93.9 fL (80.0-100.0); Mean Platelet Volume 9.3; Monocytes # (A) 0.5 k/uL (0-1.0); Monocytes % (A) 12 %; Neutrophils % (A) 69 %; RBC 2.87 m/uL (4.30-5.90); RDW 15.4 % (11.5-15.5); WBC 4.4 k/uL (3.8-10.6)
[2021-05-05 11:08] LABS: Albumin 3.9 g/dL (3.5-5.0); Calcium 8.9 mg/dL (8.4-10.2); Potassium 4.2 mmol/L (3.5-5.1); Total Bilirubin 0.6 mg/dL (0.2-1.3); Total Protein 6.1 g/dL (6.3-8.2)
[2021-05-05 11:09] LABS: INR 2.2 (<1.2); Partial Thromboplastin Time 34.7 sec (22.0-30.0); Prothrombin Time 21.3 sec (9.0-12.0)
--- NOTE | 2021-05-05 11:27 | US ---
EXAMINATION TYPE: US venous doppler duplex LE LT DATE OF EXAM: 05/05/2021 10:24 AM COMPARISON: NONE CLINICAL HISTORY: swelling. SIDE PERFORMED: Left TECHNIQUE: The lower extremity deep venous system is examined utilizing real time linear array sonog srinath with graded compression, doppler sonography and color-flow sonography. VESSELS IMAGED: Common Femoral Vein Deep Femoral Vein Greater Saphenous Vein * Femoral Vein Popliteal Vein Small Saphenous Vein * Proximal Calf Veins (* superficial vessels) Left Leg: Negative for DVT Grayscale, color doppler, spectral doppler imaging performed of the deep veins of the left lower extr emity. There is normal flow, compressibility, vascular waveforms. IMPRESSION: No ultrasound evidence for acute DVT in the left lower extremity.
[2021-05-05 11:32] LABS: Platelet Count 78 k/uL (150-450)
--- NOTE | 2021-05-05 12:07 | XR ---
EXAMINATION TYPE: XR chest 2V DATE OF EXAM: 05/05/2021 COMPARISON: Chest x-ray February 06, 2020 HISTORY: Dyspnea. TECHNIQUE: Frontal and lateral views of the chest are obtained. FINDINGS: Background underlying emphysematous change thought Present. There is no focal air space [place], pleural effusion, or pneumothorax seen. The cardiac silhouette size is upper limits of normal. Overlying sternal wires are redemonstrated. Multilevel spurring in thoracic spine. IMPRESSION: Chronic changes without acute pulmonary process.
[2021-05-05 13:30] VITALS: BP 156/70; PULSE 60; TEMP 98.1
--- NOTE | 2021-05-05 15:25 | P.CONS ---
History of Present Illness - Reason for Consult Consult date: 05/05/21 Medical management Requesting physician: Marco A Baptiste - Chief Complaint Left leg swelling - History of Present Illness history of presenting complaint: this is a 80 year old patient who follows with Dr. Greenberg. 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 Patient presents to the ER accompanied by son with whom he lives. Patient does use a walker to baseline. Patient states she's had the swelling of the left leg for a few weeks. No injury. He also states that he got some slight shortness of breath. With activity. Which has gone on for months. No cough. No fever no chills. Appetite is fair. No change in bowel or urine patent. He saw Dr. Hickman his spa host about 3 weeks ago. Nothing new was sent. Back in December of this agent of a cardiac catheterization and he was told medical management following that. During hemodialysis his blood pressure does drop and not enough fluid can often be taken out. He does follow with Dr. Cox. Patient was 3 days ago seen at [facility]. For the same reason. He was informed it was no DVT in the lower extremity and no PE.. 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 Did smoke in the past. No alcohol. . Physical examination: VITAL SIGNS: 98.1, 60, 18, 1 56 x 70, 98% room air GENERAL: [Reclining in bed, comfortable EYES: Pupils equal. Conjunctiva normal. HEENT: External appearance of nose and ears normal, oral cavity grossly normal. NECK: JVD not raised; masses not palpable. HEART: First and second heart sounds are normal; left leg edema. Some in the right LUNGS: Respiratory rate normal; clear to auscultation. ABDOMEN: Soft, nontender, liver spleen not palpable, no masses palpable. MUSCULAR skeletal: Evidence of OA, . PSYCH: Awake and alert, answering questions appropriately INVESTIGATIONS, reviewed in the clinical context: WBC 4.4 hemoglobin 9.4 platelets 78 INR 2.2 with 34 potassium 4.2 BUN 21 crea tinine 4.78 Chest x-ray film personally reviewed by me-emphysema changes. No infiltrates. Some cardiomegaly. Some chronic changes. EKG tracing personally reviewed by me-atrial fibrillation. Weight 56 Ultrasound left lower extremity: No DVT Assessment and plan: -Left lower extremity swelling which has been present for a few weeks. Patient had surgery on this hip few months ago. This is likely venous insufficiency. No ultrasound evidence of DVT. No signs of inflammation Zen wrap. -End-stage kidney disease , follows with Dr. Cox on hemodialysis-Friday -Chronic kidney disease stage V, with hypertension Lopressor, hydralazine 50 mg twice a day -Normocytic anemia likely secondary to chronic kidney disease Follow H&H outpatient -Thrombocytopenia, chronic -BPH -Coronary artery disease, with cardiac catheterization of December 2020. For medical management. Patient saw Dr. Hickman 2 weeks ago. No change in medications. - cognitive impairment probably from late onset Alzheimer's dementia -Hyperlipidemia Pravachol 40 mg daily at bedtime -Primary osteoarthritis Pain medications as needed Care was discussed with the patient and son at the bedside. Zen wrap to left lower extremity. Fluid balance is being done with hemodialysis. Did have the patient started on fluid restriction. His already been worked up by Dr. Hickman his spa host and medications are being followed. There is no pulmonary edema. No PE. He will follow-up with his own consultants. Patient can be discharged back to home from the . This was discussed with Dr. Karel whitman the ER. Copy of this dictation be sent to his family doctor Dr. Greenberg Past Medical History Past Medical History: Atrial Fibrillation, COPD, Dementia, Diabetes Mellitus, Hyperlipidemia, Hypertension, Myocardial Infarction ([place]), Renal Disease Additional Past Medical History / Comment(s): kidney stones, dialysis M-W-. vertigo. gait unsteady uses walker, waiting to get on the list for a kidney transplant. Last Myocardial Infarction Date:: unsure History of Any Multi-Drug Resistant Organisms: None Reported Past Surgical History: Back Surgery, Cholecystectomy, Coronary Bypass/CABG, Heart Catheterization Additional Past Surgical History / Comment(s): placment of shunt for dialysis. 01/01/20 had closed reduction and surgical stabilization of left intertrochanteric femur. triple bypass Past Anesthesia/Blood Transfusion Reactions: No Reported Reaction Past Psychological History: No Psychological Hx Reported Smoking Status: Never smoker Past Alcohol Use History: None Reported Past Drug Use History: Marijuana - Past Family History Mother Family Medical History: Myocardial Infarction ([place]) Father Family Medical History: Renal Disease Medications and Allergies Home Medications Medication Instructions Recorded Confirmed Type Pravastatin Sodium [Pravachol] 40 mg PO HS 06/30/18 05/05/21 History Donepezil [Aricept] 10 mg PO HS 10/20/19 05/05/21 History Metoprolol Tartrate 25 mg PO MOWEFR@1200 02/06/20 05/05/21 History Pantoprazole Sodium [Protonix] 40 mg PO HS 02/06/20 05/05/21 History Dialyvite 1 tab PO DAILY 11/15/20 05/05/21 History Metoprolol Tartrate [Lopressor] 25 mg PO SUTUTHSA@0900,2100 11/15/20 05/05/21 History Allopurinol [Zyloprim] 100 mg PO DAILY 05/05/21 05/05/21 History Citalopram Hydrobromide [CeleXA] 20 mg PO DAILY 05/05/21 05/05/21 History Eszopiclone [Lunesta] 2 mg PO HS 05/05/21 05/05/21 History Lidocaine-Prilocaine Cream [Emla 1 applic TOPICAL MOWEFR PRN 05/05/21 05/05/21 History Cream 2.5%/2.5%] Warfarin Sodium 5 mg PO TUTHSA 05/05/21 05/05/21 History Warfarin [Coumadin] 7.5 mg PO SUMOWEFR 05/05/21 05/05/21 History hydrALAZINE HCL [Apresoline] 50 mg PO BID 05/05/21 05/05/21 History Allergies Allergy/AdvReac Type Severity Reaction Status Date / Time hyper immune syrum from Allergy Unknown Uncoded 05/05/21 12:46 horses Childhood Physical Exam Vitals: Vital Signs Temp Pulse Resp BP Pulse Ox 05/05/21 13:29 98.1 F 60 18 156/70 98 05/05/21 12:43 57 L 18 167/73 98 05/05/21 10:04 97.9 F 65 18 155/57 99 Intake and Output 05/04/21 05/05/21 05/05/21 22:59 06:59 14:59 Other: Weight 108.862 kg Results CBC & Chem 7: 05/05/21 10:35 05/05/21 10:35 Labs: Abnormal Lab Results - Last 24 Hours (Table) 05/05/21 05/05/21 05/05/21 Range/Units 10:35 10:35 10:35 RBC 2.87 L (4.30-5.90) m/uL Hgb 9.4 L (13.0-17.5) gm/dL Hct 27.0 L (39.0-53.0) % Plt Count 78 L (150-450) k/uL Lymphocytes # 0.6 L (1.0-4.8) k/uL PT 21.3 H (9.0-12.0) sec INR 2.2 H (<1.2) APTT 34.7 H (22.0-30.0) sec D-Dimer 0.67 H (<0.60) mg/L FEU Sodium 134 L (137-145) mmol/L Chloride 94 L (98-107) mmol/L Carbon Dioxide 32 H (22-30) mmol/L BUN 21 H (9-20) mg/dL Creatinine 4.78 H (0.66-1.25) mg/dL Glucose 222 H (74-99) mg/dL Total Protein 6.1 L (6.3-8.2) g/dL
== END 2021-05-05 13:51 | disposition home or self-care (01) ==
LOC: EC 09:54
DX: R60.0 Localized edema (principal); I48.91 Unspecified atrial fibrillation; J44.9 Chronic obstructive pulmonary disease, unspecified; F03.90 Unspecified dementia, unspecified severity, without behavioral disturbance, psychotic disturbance, mood disturbance, and anxiety; E11.9 Type 2 diabetes mellitus without complications; E78.5 Hyperlipidemia, unspecified; I10 Essential (primary) hypertension; I25.2 Old myocardial infarction; F12.90 Cannabis use, unspecified, uncomplicated; Z79.01 Long term (current) use of anticoagulants; Z87.442 Personal history of urinary calculi; Z90.49 Acquired absence of other specified parts of digestive tract; Z95.1 Presence of aortocoronary bypass graft
CPT/HCPCS: 36415; 71046; 80053; 83605; 83880; 84484; 85025; 85379; 85610; 85730; 93005; 99284

== ENCOUNTER 2021-09-30 09:55 | Inpatient (IN) | payer MEDICARE ==
[2021-09-30] MEDS ORDERED: ONDANSETRON 4 MG/2 ML VIAL IVP STA (12:51)
[2021-09-30] MEDS ORDERED: MORPHINE SULFATE 4 MG/ML SYRINGE IV STA (12:51)
[2021-09-30] MEDS ORDERED: PANTOPRAZOLE 40 MG/10 ML VIAL IVP STA (12:51)
[2021-09-30 13:41] LABS: Appearance,Urine Clear (Clear); Bilirubin,Urine Negative (Negative); Blood,Urine Trace (Negative); Color,Urine Yellow; Glucose,Urine (UA) 3+ (Negative); Ketones,Urine Trace (Negative); Leukocyte Esterase,Urine Negative (Negative); Mucus,Urine Rare /hpf; Nitrite,Urine Negative (Negative); PH, Urine 8.5 (5.0-8.0); Protein,Urine 2+ (Negative); RBC,Urine 19 /hpf (0-5); Specific Gravity,Urine 1.012 (1.001-1.035); Squamous Epithelial Cell,Urine <1 /hpf (0-4); Urobilinogen,Urine <2.0 mg/dL (<2.0); WBC,Urine 3 /hpf (0-5)
[2021-09-30 13:45] LABS: Basophils % (A) 0 %; Eosinophils % (A) 0 %; HCT 32.7 % (39.0-53.0); Lymphocytes # (A) 0.3 k/uL (1.0-4.8); Lymphocytes % (A) 4 %; MCH 31.6 pg (25.0-35.0); MCHC 33.6 g/dL (31.0-37.0); MCV 94.1 fL (80.0-100.0); Mean Platelet Volume 9.6; Monocytes # (A) 0.8 k/uL (0-1.0); Monocytes % (A) 10 %; Neutrophils # (A) 6.5 k/uL (1.3-7.7); Neutrophils % (A) 83 %; Partial Thromboplastin Time 31.3 sec (22.0-30.0); Prothrombin Time 19.9 sec (9.0-12.0); RBC 3.48 m/uL (4.30-5.90); RDW 15.5 % (11.5-15.5); WBC 7.8 k/uL (3.8-10.6)
[2021-09-30 13:46] LABS: Albumin 4.1 g/dL (3.5-5.0); Calcium 9.2 mg/dL (8.4-10.2); Potassium 5.1 mmol/L (3.5-5.1); Total Bilirubin 1.5 mg/dL (0.2-1.3); Total Protein 6.7 g/dL (6.3-8.2)
--- NOTE | 2021-09-30 13:49 | ED ---
General Adult HPI - General Chief complaint: Abdominal Pain Stated complaint: [place], chest pain Time Seen by Provider: 09/30/21 12:45 Source: patient, family, RN notes reviewed, old records reviewed Mode of arrival: wheelchair Limitations: no limitations - History of Present Illness Initial comments: Patient is an 81-year-old male who is currently on hospice and is no code with a past medical history remarkable for ESRD on hemodialysis, atrial fibrillation on Coumadin, COPD, dementia, hypertension who presents emergency Department with multiple complaints. Patient missed dialysis on Friday. Since that time, has been complaining of intermittent exertional shortness of breath, nonproductive cough, as well as nonspecific abdominal pain. Denies constipation. Denies any diarrhea. States he still having flatus. Denies any nausea or vomiting. De nies any chest pain. His no known sick contacts. Patient's nephew presents with him and AIDS in the history taking. He has no other acute complaints at this time. He presents over concern for his pain as well as dyspnea. Has noticed some increased swelling in his lower extremities. Denies orthopnea. Denies PND. - Related Data Home Medications Medication Instructions Recorded Confirmed Donepezil [Aricept] 10 mg PO DAILY 10/20/19 09/30/21 Citalopram Hydrobromide [CeleXA] 20 mg PO DAILY 05/05/21 09/30/21 Eszopiclone [Lunesta] 2 mg PO HS 05/05/21 09/30/21 hydrALAZINE HCL [Apresoline] 50 mg PO BID 05/05/21 09/30/21 LORazepam [Ativan] 0.5 mg PO Q4H PRN 09/30/21 09/30/21 Tamsulosin [Flomax] 0.8 mg PO DAILY 09/30/21 09/30/21 Warfarin Sodium 5 mg PO DAILY 09/30/21 09/30/21 Allergies Allergy/AdvReac Type Severity Reaction Status Date / Time hyper immune syrum from Allergy Unknown Uncoded 09/30/21 19:53 horses Childhood Review of Systems ROS Statement: Those systems with pertinent positive or pertinent negative responses have been documented in the HPI. Review of Systems: CONST: Denies fever EYES: Denies blurry vision ENT: Denies nasal congestion C/V: Denies Chest pain RESP: Endorses shortness of breath GI: Endorses abdominal pain : Denies dysuria SKIN: Denies rash. MSK: Denies joint pain. NEURO: Denies headache ROS Other: All systems not noted in ROS Statement are negative. Past Medical History Past Medical History: Atrial Fibrillation, COPD, Dementia, Diabetes Mellitus, Hyperlipidemia, Hypertension, Myocardial Infarction (NM), Renal Disease Additional Past Medical History / Comment(s): kidney stones, dialysis M-W-F. vertigo. gait unsteady uses walker, waiting to get on the list for a kidney transplant. Last Myocardial Infarction Date:: unsure History of Any Multi-Drug Resistant Organisms: None Reported Past Surgical History: Back Surgery, Cholecystectomy, Coronary Bypass/CABG, Heart Catheterization Additional Past Surgical History / Comment(s): placment of shunt for dialysis. 01/01/20 had closed reduction and surgical stabilization of left intertrochanteric femur. triple bypass Past Anesthesia/Blood Transfusion Reactions: No Reported Reaction Past Psychological History: No Psychological Hx Reported Smoking Status: Never smoker Past Alcohol Use History: None Reported Past Drug Use History: Marijuana - Past Family History Mother Family Medical History: Myocardial Infarction (NM) Father Family Medical History: Renal Disease General Exam - General Exam Comments Initial Comments: General: Appears in no acute distress. HEAD: Normal with no signs of head trauma. EYES: PERRLA, EOMI, conjunctiva normal, no discharge. ENT: Hearing grossly intact, normal oropharynx. RESPIRATORY: Clear breath sounds bilaterally. No wheezes, rales, or rhonchi. No increased work of breathing. No hypoxia. C/V: A regular rate and rhythm with a history of atrial fibrillation. S1 and S2 auscultated. Peripheral pulses 2+ intact throughout. Bilateral 1+ pitting edema.Right upper extremity AV fistula with palpable thrill and audible bruit. ABD: Abdomen is soft, nondistended. Relatively nontender. Nonspecific exam. No guarding, no peritoneal signs. EXT: Normal range of motion, no obvious deformity SKIN: No rashes or lesions observed on exposed skin. NEURO: Alert and oriented 4. No focal deficits. Acting his baseline per family. Limitations: no limitations Course Vital Signs 09/30/21 09/30/21 09/30/21 09:56 11:02 12:34 Temperature 98.4 F Pulse Rate 86 96 98 Respiratory 18 20 20 Rate Blood Pressure 149/89 195/79 162/93 O2 Sat by Pulse 95 95 95 Oximetry 09/30/21 09/30/21 09/30/21 14:00 15:00 16:00 Temperature 97.9 F Pulse Rate 95 96 103 H Respiratory 20 22 22 Rate Blood Pressure 156/74 147/71 152/75 O2 Sat by Pulse 93 L 94 L 95 Oximetry 09/30/21 09/30/21 09/30/21 17:00 18:00 19:52 Temperature Pulse Rate 105 H 93 84 Respiratory 22 24 18 Rate Blood Pressure 155/76 148/78 147/82 O2 Sat by Pulse 96 98 96 Oximetry Medical Decision Making - Medical Decision Making Based on the patient's presentation and physical exam, I'm concerned for possible intra-abdominal process or infectious etiology for his current symptoms. Cannot rule out volume overload, which he does appear to be at this time. We will obtain a broad workup, as well as CT brain and abdomen. Family was in agreement with this plan. EKG showed atrial fibrillation but no signs of acute ischemia or hyperkalemia changes. Laboratory studies were remarkable for a slightly normocytic anemia with hemoglobin of 11.0, which does appear to be his baseline. INR is therapeutic at 2.0. Patient has an elevated BUN/creatinine the setting of ESRD. Potassium is 5.1. Lactic acid is 3.6 of unknown etiology. Troponin is indeterminate at 0.020. BNP is elevated to 34,000. Urinalysis shows no signs of infection. Covid is negative. Chest x-ray reveals small left pleural effusion, as well as developing infectious process versus pulmonary vascular congestion. KUB x-ray reveals no acute findings. Brain CT shows no acute intracranial process. Abdomen and pelvis CT revealed pleural effusions as well as basilar pulmonary infiltrates versus pulmonary congestion.Patient does have been unexplained lactic acidosis, which resolved. After the patient on the findings. He expressed understanding. He still makes urine and will be started on twice a day Lasix. He requires dialysis. I consulted and spoke with nephrology, Dr. Dietz who agreed, and will arrange for dialysis during his current state. I discussed the case with Dr. Patel, the admitting team and I believe he is likely experiencing heart failure exacerbation. However we will cover the patient with Rocephin at this time. Accepted the admission. I also discussed the case at length with the patient's hospice team. If needed, the patient will be taken off hospice and placed back on upon discharge. They were in agreement with this plan at this time. Vital signs remained within normal limits and stable.Patient is no code. - Lab Data Result diagrams: 09/30/21 13:16 09/30/21 13:16 Lab Results 09/30/21 09/30/21 09/30/21 Range/Units 13:16 13:16 13:16 WBC 7.8 (3.8-10.6) k/uL RBC 3.48 L (4.30-5.90) m/uL Hgb 11.0 L (13.0-17.5) gm/dL Hct 32.7 L (39.0-53.0) % MCV 94.1 (80.0-100.0) fL MCH 31.6 (25.0-35.0) pg MCHC 33.6 (31.0-37.0) g/dL RDW 15.5 (11.5-15.5) % Plt Count 98 L (150-450) k/uL MPV 9.6 Neutrophils % 83 % Lymphocytes % 4 % Monocytes % 10 % Eosinophils % 0 % Basophils % 0 % Neutrophils # 6.5 (1.3-7.7) k/uL Lymphocytes # 0.3 L (1.0-4.8) k/uL Monocytes # 0.8 (0-1.0) k/uL Eosinophils # 0.0 (0-0.7) k/uL Basophils # 0.0 (0-0.2) k/uL Manual Slide Review Performed PT 19.9 H (9.0-12.0) sec INR 2.0 H (<1.2) APTT 31.3 H (22.0-30.0) sec Sodium 136 L (137-145) mmol/L Potassium 5.1 (3.5-5.1) mmol/L Chloride 96 L (98-107) mmol/L Carbon Dioxide 25 (22-30) mmol/L Anion Gap 15 mmol/L BUN 55 H (9-20) mg/dL Creatinine 7.46 H* (0.66-1.25) mg/dL Est GFR (CKD-EPI)AfAm 7 (>60 ml/min/1.73 sqM) Est GFR (CKD-EPI)NonAf 6 (>60 ml/min/1.73 sqM) Glucose 237 H (74-99) mg/dL Lactic Ac Sepsis Rflx Plasma Lactic Acid Dave (0.7-2.0) mmol/L Calcium 9.2 (8.4-10.2) mg/dL Total Bilirubin 1.5 H (0.2-1.3) mg/dL AST 24 (17-59) U/L ALT 24 (4-49) U/L Alkaline Phosphatase 126 (38-126) U/L Troponin I (0.000-0.034) ng/mL NT-Pro-B Natriuret Pep pg/mL Total Protein 6.7 (6.3-8.2) g/dL Albumin 4.1 (3.5-5.0) g/dL Amylase 59 (30-110) U/L Lipase 49 (23-300) U/L Urine Color Urine Appearance (Clear) Urine pH (5.0-8.0) Ur Specific [place] (1.001-1.035) Urine Protein (Negative) Urine Glucose (UA) (Negative) Urine Ketones (Negative) Urine Blood (Negative) Urine Nitrite (Negative) Urine Bilirubin (Negative) Urine Urobilinogen (<2.0) mg/dL Ur Leukocyte Esterase (Negative) Urine RBC (0-5) /hpf Urine WBC (0-5) /hpf Ur Squamous Epith Cells (0-4) /hpf Urine Mucus (None) /hpf Coronavirus (PCR) (Not Detectd) 09/30/21 09/30/21 09/30/21 Range/Units 13:16 13:16 13:16 WBC (3.8-10.6) k/uL RBC (4.30-5.90) m/uL Hgb (13.0-17.5) gm/dL Hct (39.0-53.0) % MCV (80.0-100.0) fL MCH (25.0-35.0) pg MCHC (31.0-37.0) g/dL RDW (11.5-15.5) % Plt Count (150-450) k/uL MPV Neutrophils % % Lymphocytes % % Monocytes % % Eosinophils % % Basophils % % Neutrophils # (1.3-7.7) k/uL Lymphocytes # (1.0-4.8) k/uL Monocytes # (0-1.0) k/uL Eosinophils # (0-0.7) k/uL Basophils # (0-0.2) k/uL Manual Slide Review PT (9.0-12.0) sec INR (<1.2) APTT (22.0-30.0) sec Sodium (137-145) mmol/L Potassium (3.5-5.1) mmol/L Chloride (98-107) mmol/L Carbon Dioxide (22-30) mmol/L Anion Gap mmol/L BUN (9-20) mg/dL Creatinine (0.66-1.25) mg/dL Est GFR (CKD-EPI)AfAm (>60 ml/min/1.73 sqM) Est GFR (CKD-EPI)NonAf (>60 ml/min/1.73 sqM) Glucose (74-99) mg/dL Lactic Ac Sepsis Rflx Plasma Lactic Acid Dave 3.6 H* (0.7-2.0) mmol/L Calcium (8.4-10.2) mg/dL Total Bilirubin (0.2-1.3) mg/dL AST (17-59) U/L ALT (4-49) U/L Alkaline Phosphatase (38-126) U/L Troponin I 0.020 (0.000-0.034) ng/mL NT-Pro-B Natriuret Pep 85242 pg/mL Total Protein (6.3-8.2) g/dL Albumin (3.5-5.0) g/dL Amylase (30-110) U/L Lipase (23-300) U/L Urine Color Urine Appearance (Clear) Urine pH (5.0-8.0) Ur Specific [place] (1.001-1.035) Urine Protein (Negative) Urine Glucose (UA) (Negative) Urine Ketones (Negative) Urine Blood (Negative) Urine Nitrite (Negative) Urine Bilirubin (Negative) Urine Urobilinogen (<2.0) mg/dL Ur Leukocyte Esterase (Negative) Urine RBC (0-5) /hpf Urine WBC (0-5) /hpf Ur Squamous Epith Cells (0-4) /hpf Urine Mucus (None) /hpf Coronavirus (PCR) (Not Detectd) 09/30/21 09/30/21 09/30/21 Range/Units 13:17 13:55 14:10 WBC (3.8-10.6) k/uL RBC (4.30-5.90) m/uL Hgb (13.0-17.5) gm/dL Hct (39.0-53.0) % MCV (80.0-100.0) fL MCH (25.0-35.0) pg MCHC (31.0-37.0) g/dL RDW (11.5-15.5) % Plt Count (150-450) k/uL MPV Neutrophils % % Lymphocytes % % Monocytes % % Eosinophils % % Basophils % % Neutrophils # (1.3-7.7) k/uL Lymphocytes # (1.0-4.8) k/uL Monocytes # (0-1.0) k/uL Eosinophils # (0-0.7) k/uL Basophils # (0-0.2) k/uL Manual Slide Review PT (9.0-12.0) sec INR (<1.2) APTT (22.0-30.0) sec Sodium (137-145) mmol/L Potassium (3.5-5.1) mmol/L Chloride (98-107) mmol/L Carbon Dioxide (22-30) mmol/L Anion Gap mmol/L BUN (9-20) mg/dL Creatinine (0.66-1.25) mg/dL Est GFR (CKD-EPI)AfAm (>60 ml/min/1.73 sqM) Est GFR (CKD-EPI)NonAf (>60 ml/min/1.73 sqM) Glucose (74-99) mg/dL Lactic Ac Sepsis Rflx Y Plasma Lactic Acid Dave (0.7-2.0) mmol/L Calcium (8.4-10.2) mg/dL Total Bilirubin (0.2-1.3) mg/dL AST (17-59) U/L ALT (4-49) U/L Alkaline Phosphatase (38-126) U/L Troponin I (0.000-0.034) ng/mL NT-Pro-B Natriuret Pep pg/mL Total Protein (6.3-8.2) g/dL Albumin (3.5-5.0) g/dL Amylase (30-110) U/L Lipase (23-300) U/L Urine Color Yellow Urine Appearance Clear (Clear) Urine pH 8.5 H (5.0-8.0) Ur Specific [place] 1.012 (1.001-1.035) Urine Protein 2+ H (Negative) Urine Glucose (UA) 3+ H (Negative) Urine Ketones Trace H (Negative) Urine Blood Trace H (Negative) Urine Nitrite Negative (Negative) Urine Bilirubin Negative (Negative) Urine Urobilinogen <2.0 (<2.0) mg/dL Ur Leukocyte Esterase Negative (Negative) Urine RBC 19 H (0-5) /hpf Urine WBC 3 (0-5) /hpf Ur Squamous Epith Cells <1 (0-4) /hpf Urine Mucus Rare H (None) /hpf Coronavirus (PCR) Not Detected (Not Detectd) - EKG Data -: EKG Interpreted by Me EKG Comments: 12-lead Electrocardiogram Interpretation Note EKG was reviewed and interpreted by myself. 12-lead ECG performed at 1010 is interpreted by me as revealing atrial fibrillation at a rate of 88 beats per minute. Left axis deviation. ND interval is unobtainable, QRS duration is 152 ms, QTc is 499 ms. There are chronic changes. No acute changes.. There were no acute ST or T wave abnormalities to suggest myocardial ischemia or injury. R wave progression across precordium was delayed.. By my interpretation this EKG is non-diagnostic for acute ischemia. Critical Care Time Critical Care Time: Yes Total Critical Care Time: 35 Critical Care Time: Upon my evaluation, this patient had a high probability of imminent or life- threatening deterioration due to missed dialysis, volume overload state, heart failure exacerbation, hospice, which required my direct attention, intervention, and personal management. I have personally provided 35 minutes of critical care time exclusive of time spent on separately billable procedures. Time includes review of laboratory data, radiology results, discussion with consultants, and monitoring for poten tial decompensation. Interventions were performed as documented in my note. Disposition Clinical Impression: Heart failure, Volume overload, Lactic acidosis, Missed dialysis Disposition: ADMITTED IP TO THIS HOSP Condition: Stable
[2021-09-30 13:54] LABS: Platelet Count 98 k/uL (150-450)
--- NOTE | 2021-09-30 14:21 | XR ---
EXAMINATION TYPE: XR chest 2V DATE OF EXAM: 09/30/2021 1:57 PM COMPARISON: Chest radiographs from 05/05/2021 TECHNIQUE: XR chest 2V Frontal and lateral views of the chest. CLINICAL INDICATION:Male, 81 years old with history of abdominal pain; FINDINGS: Lungs/Pleura: Opacities projecting to suspected overlying the heart. There is blunting of the left co stophrenic angle. Pulmonary vascularity: Pulmonary vascular congestion. Heart/mediastinum: Cardiomediastinal silhouette is enlarged and stable. Musculoskeletal: No acute osseous pathology. IMPRESSION: 1. Airspace opacities within the lower lobes could represent developing infectious process. 2. Small left pleural effusion. 3. Similar cardiomegaly and mild pulmonary vascular congestion.
--- NOTE | 2021-09-30 14:22 | XR ---
EXAMINATION TYPE: XR KUB DATE OF EXAM: 09/30/2021 1:57 PM INDICATION: Patient age:Male; 81 years old; Reason for study: abdominal pain; COMPARISON: None. TECHNIQUE: One radiographic view of the abdomen was obtained. FINDINGS: Left hip fixation hardware appears intact. Mild degenerative changes of the left hip. There is probable remote left lesser trochanter fracture. Multilevel disc degeneration changes of the spin e. Atherosclerosis of the splenic artery. The bowel gas pattern is nonspecific without dilated loops of small or large bowel.. Fecal material and gas are demonstrated throughout the colon and rectum. IMPRESSION: 1. Nonspecific bowel gas pattern without radiographic evidence for acute process. 2. Left hip hardware intact.
[2021-09-30] MEDS ORDERED: NALOXONE 0.4 MG/ML 1 ML VIAL IV PRN (15:23)
--- NOTE | 2021-09-30 16:45 | CT ---
EXAMINATION TYPE: CT brain wo con DATE OF EXAM: 09/30/2021 COMPARISON: None HISTORY: AMS CT DLP: 1306.4 mGycm Automated exposure control for dose reduction was used. There is cerebral cortical atrophy. There is no mass effect or midline shift. There is no sign of int racranial hemorrhage. Calvarium is intact. There is normal aeration of the mastoid sinuses. IMPRESSION: Cerebral atrophy. No acute intracranial abnormality.
--- NOTE | 2021-09-30 17:07 | CT ---
EXAMINATION TYPE: CT ChestAbdPelvis w con DATE OF EXAM: 09/30/2021 COMPARISON: 09/15/2013 HISTORY: [place], Abdominal pain CT DLP: 2544.4 mGycm Automated exposure control for dose reduction was used. CONTRAST: Performed with IV Contrast, patient injected with 80 mL of Isovue 300. Images obtained from the thoracic inlet to the floor the pelvis with IV contrast. There is bilateral pleural effusions. Heart is enlarged. There are sternal wires. There is patchy ate lectasis at the lung bases. Thoracic aorta is intact. There is coronary artery calcification. No aort ic dissection. 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 Liver and spleen are intact. The bile ducts are not dilated. The stomach is intact. Pancreas is intac t. There is extensive vascular calcification. There is no adrenal mass. There is a 4 cm cortical cyst upper pole right kidney. There is renal cortical thinning. There is 2 cm cyst lateral left kidney. N o hydronephrosis. No retroperitoneal adenopathy. Bladder distends smoothly. There is left hip nailing . The bony pelvis is intact. There are multiple sigmoid diverticula. No diverticulitis. No mesenteric edema. No ascites or free air. No bowel obstruction. The thoracic and lumbar vertebra appear intact. No compression fracture. Sternum is intact. IMPRESSION: Pleural effusions with basilar pulmonary infiltrates and atelectasis could relate to some chronic con gestive heart failure. No acute abnormality within the abdomen and pelvis. Sigmoid diverticulosis. Pulmonary abnormalities a ppear new compared to old CT scan of 09/25/2013. Renal atrophy. There is progression of renal atrophy compared to old exam.
[2021-09-30] MEDS ORDERED: HYDROcodone/APAP 5-325MG 1 EACH TAB PO PRN (18:42)
[2021-09-30] MEDS: methylPREDNISolone SOD SUCCI 125 MG/2 ML VIAL IV SCH ×2 (19:48→23:15)
[2021-09-30 19:54] LABS: Glucose,Whole Blood 76 mg/dL (75-99)
--- NOTE | 2021-09-30 20:26 | HP ---
HISTORY AND PHYSICAL DATE OF SERVICE: 09/30/2021 CHIEF COMPLAINTS: Abdominal pain, chest pain, shortness of breath. HISTORY OF PRESENT ILLNESS: This 81-year-old gentleman with a past medical history of COPD, atrial fibrillation and dementia also had renal failure. The patient is on dialysis through right AV graft. The patient is complaining of shortness of breath, abdominal pain and multiple symptomatology. Evaluation showed possible bilateral pneumonia. The patient was admitted for further evaluation and treatment. The sodium was found to be 136 and total bilirubin is 1.5. There is no history of any fever, rigors or chills. No history of headache, loss of consciousness, seizures. COVID-19 is negative. PAST MEDICAL HISTORY: History of COPD, atrial fibrillation, dementia. MEDICATIONS: Home medications reviewed. They include apresoline, Coumadin. Doses are reviewed. Medications are yet to be confirmed. ALLERGIES: HYPERIMMUNE SERUM. FAMILY HISTORY: History of myocardial infarction. SOCIAL HISTORY: No history of smoking. No history of alcoholism. REVIEW OF SYSTEMS: Fourteen-point review of systems negative except as mentioned earlier. PHYSICAL EXAMINATION: Pulse is 103. Extremely short of breath. Blood pressure 152/70, respiration 20. HEENT: Conjunctivae normal. NECK: No jugular venous distention. CARDIOVASCULAR: S1, S2 muffled. RESPIRATION: Breath sounds diminished at the bases. A few scattered rhonchi and crackles. ABDOMEN: Soft, obese. LEGS: Bilateral leg edema. NERVOUS SYSTEM: Diffusely weak. SKIN: No ulcer, rash, bleeding. JOINTS: No active deforming arthropathy. LABS: CT scans reviewed. Chest x-ray reviewed. Other labs reviewed. ASSESSMENT: 1. Bilateral pneumonia with pleural effusion. 2. Rule out congestive heart failure and fluid overload. 3. Missed hemodialysis. 4. Chronic kidney disease, on hemodialysis. 5. Atrial fibrillation. 6. Chronic obstructive pulmonary disease. 7. Diabetes mellitus, type 2. 8. Hypertension. 9. Hyperlipidemia. RECOMMENDATIONS AND DISCUSSION: In this 81-year-old gentleman who presented with multiple complex medical issues, we will monitor the patient closely, continue the current medications, continue symptomatic treatment. Will initiate broad-spectrum IV antibiotics and IV steroids. Nephrology evaluation. I would also recommend pulmonary consultation. Cultures will be obtained. COVID-19 is negative. Resume the home medications. Prognosis extremely guarded because of multiple complex medical issues. Further recommendations to follow. See orders for details. Home medications confirmed; will continue those. MMODL / IJN: [id number] /
[2021-09-30] MEDS ORDERED: TEMAZEPAM 15 MG CAP PO PRN (21:00)
[2021-09-30] MEDS: BUDESONIDE 1 MG/2 ML NEBU INHALATION SCH (21:24)
[2021-09-30] MEDS: IPRATROPIUM-ALBUTEROL 3 ML NEB INHALATION SCH (21:25)
[2021-09-30] MEDS: FORMOTEROL FUMARATE 20 MCG/2 ML NEBU INHALATION SCH (21:25)
[2021-09-30] MEDS: INSULIN ASPART (NovoLOG) 100 UNIT/ML VIAL SQ SCH (21:25)
[2021-09-30] MEDS: hydrALAZINE HCL 50 MG TAB PO SCH (21:53)
[2021-09-30] MEDS: HEPARIN SODIUM,PORCINE/PF 5,000 UNIT/0.5 ML SYRINGE SQ SCH (21:53)
[2021-09-30] MEDS: FUROSEMIDE 10 MG/ML 4 ML VIAL IV SCH (21:53)
[2021-10-01] MEDS ORDERED: CITALOPRAM HYDROBROMIDE 20 MG TAB ONE (09:00)
[2021-10-01] MEDS ORDERED: FUROSEMIDE 10 MG/ML 4 ML VIAL ONE (09:00)
[2021-10-01] MEDS ORDERED: hydrALAZINE HCL 50 MG TAB ONE (09:00)
[2021-10-01] MEDS ORDERED: DONEPEZIL 10 MG TAB ONE (09:00)
[2021-10-01] MEDS ORDERED: HEPARIN SODIUM,PORCINE 5,000 UNIT/ML 1 ML VIAL ONE (09:00)
[2021-10-01] MEDS ORDERED: TAMSULOSIN 0.4 MG CAP.ER.24H PO ONE (09:00)
[2021-10-01] MEDS ORDERED: methylPREDNISolone SOD SUCCI 125 MG/2 ML VIAL ONE (09:00)
[2021-10-01 11:01] LABS: Glucose,Whole Blood 171 mg/dL (75-99)
[2021-10-01 11:29] LABS: Glucose,Whole Blood 130 mg/dL (75-99)
[2021-10-01] MEDS: methylPREDNISolone SOD SUCCI 125 MG/2 ML VIAL IV SCH ×3 (12:16→17:16)
[2021-10-01] MEDS: INSULIN ASPART (NovoLOG) 100 UNIT/ML VIAL SQ SCH ×4 (12:16→19:57)
[2021-10-01] MEDS: BUDESONIDE 1 MG/2 ML NEBU INHALATION SCH ×2 (12:16→19:55)
[2021-10-01] MEDS: IPRATROPIUM-ALBUTEROL 3 ML NEB INHALATION SCH ×4 (12:16→19:55)
[2021-10-01] MEDS: FORMOTEROL FUMARATE 20 MCG/2 ML NEBU INHALATION SCH ×2 (12:16→19:55)
[2021-10-01] MEDS: hydrALAZINE HCL 50 MG TAB PO SCH ×2 (12:17→19:57)
[2021-10-01] MEDS: FUROSEMIDE 10 MG/ML 4 ML VIAL IV SCH ×2 (12:17→19:57)
[2021-10-01] MEDS: DONEPEZIL 10 MG TAB PO SCH (12:17)
[2021-10-01] MEDS: HEPARIN SODIUM,PORCINE/PF 5,000 UNIT/0.5 ML SYRINGE SQ SCH ×2 (12:17→19:57)
[2021-10-01] MEDS: CITALOPRAM HYDROBROMIDE 20 MG TAB PO SCH (12:17)
[2021-10-01] MEDS: TAMSULOSIN 0.4 MG CAP.ER.24H PO SCH (12:17)
[2021-10-01 13:01] LABS: INR 2.7 (<1.2)
[2021-10-01 13:05] LABS: African American GFR (CKD) 6 (>60 ml/min/1.73 sqM); Anion Gap 15 mmol/L; Blood Urea Nitrogen 64 mg/dL (9-20); Calcium 9.1 mg/dL (8.4-10.2); Carbon Dioxide 25 mmol/L (22-30); Chloride 97 mmol/L (98-107); Glucose 161 mg/dL (74-99); Non-African American GFR(CKD) 5 (>60 ml/min/1.73 sqM); Sodium 137 mmol/L (137-145)
[2021-10-01] MEDS ORDERED: hydrALAZINE HCL 20 MG/ML 1 ML VIAL IVP PRN (13:38)
--- NOTE | 2021-10-01 13:39 | P.NPCON ---
History of Present Illness - Reason for Consult end stage renal disease - History of Present Illness Reason for consultation: End-stage renal disease History of present illness: Patient is a 81-year-old male seen in renal consultation for end-stage renal disease. He is maintained on hemodialysis on Friday schedule via left upper extremity AV fistula. He missed Friday's dialysis treatment. Patient is quite confused and not able to provide reliable history. From the records it appears that he was brought to the hospital due to shortness of breath and a nonproductive cough. He denies any vomiting or diarrhea. He is tolerating dialysis well. He has been afebrile this admission. CT of the chest abdomen and pelvis showed pleural effusions and basilar pulmonary infiltrates and atelectasis. Brain CT was negative. He is receiving IV steroids, IV Lasix as well as antibiotics. Blood pressure on the higher side. Vital signs are stable. General: Awake. Confused. HEENT: Head exam is unremarkable. LUNGS: Breath sounds decreased. HEART: Rate and Rhythm are regular. ABDOMEN: Soft, no distention. EXTREMITITES: 1+ edema. Past Medical History Past Medical History: Atrial Fibrillation, COPD, Dementia, Diabetes Mellitus, Hyperlipidemia, Hypertension, Myocardial Infarction (NH), Renal Disease Additional Past Medical History / Comment(s): kidney stones, dialysis M-W-. vertigo. gait unsteady uses walker, waiting to get on the list for a kidney transplant. Last Myocardial Infarction Date:: unsure History of Any Multi-Drug Resistant Organisms: None Reported Past Surgical History: Back Surgery, Cholecystectomy, Coronary Bypass/CABG, Heart Catheterization Additional Past Surgical History / Comment(s): placment of shunt for dialysis. 01/01/20 had closed reduction and surgical stabilization of left intertro chanteric femur. triple bypass Past Anesthesia/Blood Transfusion Reactions: No Reported Reaction Past Psychological History: No Psychological Hx Reported Additional Psychological History / Comment(s): Dementia Smoking Status: Never smoker Past Alcohol Use History: None Reported Past Drug Use History: Marijuana Additional Drug Use History / Comment(s): marijuana on occasion - Past Family History Mother Family Medical History: Myocardial Infarction (NH) Father Family Medical History: Renal Disease Medications and Allergies Home Medications Medication Instructions Recorded Confirmed Type Donepezil [Aricept] 10 mg PO DAILY 10/20/19 09/30/21 History Citalopram Hydrobromide [CeleXA] 20 mg PO DAILY 05/05/21 09/30/21 History Eszopiclone [Lunesta] 2 mg PO HS 05/05/21 09/30/21 History hydrALAZINE HCL [Apresoline] 50 mg PO BID 05/05/21 09/30/21 History LORazepam [Ativan] 0.5 mg PO Q4H PRN 09/30/21 09/30/21 History Tamsulosin [Flomax] 0.8 mg PO DAILY 09/30/21 09/30/21 History Warfarin Sodium 5 mg PO DAILY 09/30/21 09/30/21 History Allergies Allergy/AdvReac Type Severity Reaction Status Date / Time hyper immune syrum from Allergy Unknown Uncoded 09/30/21 19:53 horses Childhood Physical Exam Vitals: Vital Signs Temp Pulse Pulse Resp BP BP Pulse Ox 10/01/21 02:00 98.2 F 97 17 175/82 94 L 09/30/21 21:58 98.3 F 94 20 180/86 95 09/30/21 21:27 92 18 161/83 96 09/30/21 19:52 84 18 147/82 96 09/30/21 18:00 93 24 148/78 98 09/30/21 17:00 105 H 22 155/76 96 09/30/21 16:00 97.9 F 103 H 22 152/75 95 09/30/21 15:00 96 22 147/71 94 L 09/30/21 14:00 95 20 156/74 93 L Intake and Output 09/30/21 10/01/21 10/01/21 22:59 06:59 14:59 Output Total 100 Balance -100 Output: Urine 100 Other: Voiding Method Urinal # Voids 1 # Bowel Movements 0 Weight 99.79 kg Results - Lab Results Most recent lab results Calcium 9.2 mg/dL (8.4-10.2) 09/30/21 13:16 09/30/21 13:16 09/30/21 13:16 Assessment and Plan Plan: 1. End-stage renal disease maintained on hemodialysis on Friday schedule via left upper extremity AV fistula. 2. Volume overload. 3. Hypertension with chronic kidney disease. 4. COPD exacerbation. 5. Possible pneumonia. On antibiotics. Plan: Currently seen while undergoing hemodialysis. Next treatment on Friday. Check phosphorus level. Maintain Lasix. Change to oral diuretics tomorrow. Add hydralazine 10 mg IV every 6 hours as needed for systolic blood pressure gre ater than 160. Home antihypertensives resumed. Thank you for the consultation. I will continue to follow the patient with you during his hospital stay.
[2021-10-01 14:03] LABS: Potassium 6.2 mmol/L (3.5-5.1)
[2021-10-01 14:25] LABS: Basophils # (A) 0.1 k/uL (0-0.2); Basophils % (A) 1 %; Eosinophils % (A) 0 %; HCT 32.6 % (39.0-53.0); HGB 10.6 gm/dL (13.0-17.5); Lymphocytes # (A) 0.3 k/uL (1.0-4.8); Lymphocytes % (A) 5 %; MCH 31.3 pg (25.0-35.0); MCHC 32.6 g/dL (31.0-37.0); Monocytes # (A) 0.2 k/uL (0-1.0); Monocytes % (A) 3 %; Neutrophils # (A) 5.2 k/uL (1.3-7.7); Neutrophils % (A) 91 %; RDW 15.2 % (11.5-15.5); WBC 5.8 k/uL (3.8-10.6)
[2021-10-01 14:40] LABS: Platelet Count 88 k/uL (150-450)
[2021-10-01 16:57] LABS: Glucose,Whole Blood 151 mg/dL (75-99)
[2021-10-01] MEDS ORDERED: WARFARIN 3 MG TAB PO ONE (18:00)
[2021-10-01] MEDS ORDERED: WARFARIN 5 MG TAB PO SCH (18:00)
[2021-10-01 19:58] LABS: Glucose,Whole Blood 174 mg/dL (75-99)
--- NOTE | 2021-10-01 20:35 | P.PN ---
Progress Note - Text Progress Note Date: 10/01/21 history of presenting complaint: this is a 81 year old patient, follows with Dr. Greenberg. 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 Patient presented to the ER with multiple complaints of having missed dialysis on Friday, having increasing shortness of breath or productive cough nonspecific abdominal pain. No nausea vomiting. No chest pain. Some increasing edema. Admitted with volume overload. Pneumonia. IV ceftriaxone. October 01: Hemodialysis today. IV Lasix. Has a cough some phlegm production. Poor appetite. No nausea vomiting. On the recliner. Oral intake about 25%. IV ceftriaxone. Past medical history to include: Atrial fibrillation, COPD, dementia, diabetes, hypertension, hyperlipidemia, coronary artery disease with bypass, end-stage kidney disease on hemodialysis Friday and Friday Social history: Lives with . Did smoke in the past. No alcohol. . Physical examination: VITAL SIGNS: 98, 87, 17, 143/50, GENERAL: He planning in a chair, tired EYES: Pupils equal. Conjunctiva normal. HEENT: External appearance of nose and ears normal, oral cavity grossly normal. NECK: JVD not raised; masses not palpable. HEART: First and second heart sounds are normal; edema present LUNGS: Respiratory rate increased; basal crackles, wheezing ABDOMEN: Soft, nontender, liver spleen not palpable, no masses palpable. MUSCULAR skeletal: Evidence of OA, able to move his left hip. Joint. . PSYCH: Answering simple questions INVESTIGATIONS, reviewed in the clinical context: White count 5.18 globin 10.6 platelets 88 INR 2.7 sodium 137 potassium 6.2 BUN 64 creatinine 8156 COVID 19: Not detected CT chest abdomen pelvis: Pleural effusions with basilar pulmonary infiltrates. Renal atrophy. Assessment and plan: -Pneumonia, suspect gram-negative organism: Slow to respond IV ceftriaxone -Acute fluid overload multifactorial including having missed hemodialysis: Slow to respond IV Lasix. Hemodialysis -Renal nephrolithiasis-bilateral with laser lithotripsy -End-stage kidney disease on hemodialysis-Friday Follow with nephrology -Chronic kidney disease , with hypertension Hydralazine. -Normocytic anemia likely secondary to chronic kidney disease Follow CBC -Thrombocytopenia, chronic -BPH Flomax 0.8 mg daily -Coronary artery disease, history of coronary bypass -Moderate cognitive impairment probably from late onset Alzheimer's dementia On Aricept -Acute COPD exacerbation in a previous smoker DuoNeb. IV Solu-Medrol -Primary osteoarthritis Tylenol as needed -Chronic insomnia from multiple medical problems Lunesta 2 mg daily at bedtime -No code IV ceftriaxone. Bronchodilators. IV steroids. Hemodialysis today. Other m edications to continue. Encourage oral intake. Follow with nephrology
[2021-10-01] MEDS: methylPREDNISolone SOD SUCCI 40 MG/ML 1 ML VIAL IV SCH (22:50)
[2021-10-02 06:47] LABS: INR 3.5 (<1.2)
[2021-10-02 06:56] LABS: Glucose,Whole Blood 162 mg/dL (75-99)
[2021-10-02] MEDS: methylPREDNISolone SOD SUCCI 40 MG/ML 1 ML VIAL IV SCH ×3 (07:12→23:21)
[2021-10-02] MEDS: FUROSEMIDE 10 MG/ML 4 ML VIAL IV SCH (07:13)
[2021-10-02] MEDS: HEPARIN SODIUM,PORCINE/PF 5,000 UNIT/0.5 ML SYRINGE SQ SCH ×2 (08:43→21:20)
[2021-10-02] MEDS: DONEPEZIL 10 MG TAB PO SCH (08:49)
[2021-10-02] MEDS: hydrALAZINE HCL 50 MG TAB PO SCH ×2 (08:49→21:20)
[2021-10-02] MEDS: TAMSULOSIN 0.4 MG CAP.ER.24H PO SCH (08:49)
[2021-10-02] MEDS: CITALOPRAM HYDROBROMIDE 20 MG TAB PO SCH (08:49)
[2021-10-02] MEDS: INSULIN ASPART (NovoLOG) 100 UNIT/ML VIAL SQ SCH ×4 (08:50→21:20)
[2021-10-02] MEDS: IPRATROPIUM-ALBUTEROL 3 ML NEB INHALATION SCH ×4 (09:09→20:19)
[2021-10-02] MEDS: BUDESONIDE 1 MG/2 ML NEBU INHALATION SCH ×2 (09:09→20:19)
[2021-10-02] MEDS: FORMOTEROL FUMARATE 20 MCG/2 ML NEBU INHALATION SCH ×2 (09:09→20:19)
[2021-10-02 09:24] LABS: African American GFR (CKD) 9.2 (60.0-200.0); Anion Gap 17.5 mmol/L (10.00-18.00); BUN/Creat Ratio 6.7 Ratio (12.00-20.00); Blood Urea Nitrogen 40.9 mg/dL (9.0-27.0); Calcium 9.2 mg/dL (8.7-10.3); Carbon Dioxide 22.5 mmol/L (20.0-27.5); Potassium 5.1 mmol/L (3.5-5.5)
[2021-10-02 11:22] LABS: Glucose,Whole Blood 164 mg/dL (75-99)
--- NOTE | 2021-10-02 11:52 | P.PN ---
Subjective Patient is seen in follow-up for end-stage renal disease. He is maintained on hemodialysis on Friday schedule. Tolerated 3.3 L ul trafiltration yesterday. Currently on room air. Confused. Vital signs are stable. General: Awake. Confused. HEENT: Head exam is unremarkable. LUNGS: Breath sounds decreased. HEART: Rate and Rhythm are regular. ABDOMEN: Soft, no distention. EXTREMITITES: Trace edema. Objective - Vital Signs Vital signs: Vital Signs Temp 98.4 F 10/02/21 07:14 Pulse 80 10/02/21 09:28 Resp 20 10/02/21 07:14 BP 158/72 10/02/21 07:14 Pulse Ox 93 L 10/02/21 07:14 Intake & Output 10/01/21 10/02/21 10/02/21 18:59 06:59 18:59 Intake Total 300 200 180 Output Total 3400 Balance -3100 200 180 Intake: Oral 200 180 Hemodialysis 300 Output: Urine 100 Hemodialysis 3300 Other: Voiding Method Urinal Urinal # Voids 2 - Labs CBC & Chem 7: 10/01/21 04:02 10/02/21 05:07 Labs: Abnormal Lab Results - Last 24 Hours (Table) 10/01/21 10/01/21 10/01/21 Range/Units 04:02 04:02 04:02 RBC 3.40 L (4.30-5.90) m/uL Hgb 10.6 L (13.0-17.5) gm/dL Hct 32.6 L (39.0-53.0) % Plt Count 88 L (150-450) k/uL Lymphocytes # 0.3 L (1.0-4.8) k/uL PT 27.0 H (9.0-12.0) sec INR 2.7 H (<1.2) Sodium (135-145) mmol/L Potassium 6.2 H* (3.5-5.1) mmol/L Chloride 97 L (98-107) mmol/L BUN 64 H (9-20) mg/dL Creatinine 8.56 H* (0.66-1.25) mg/dL Est GFR (CKD-EPI)AfAm (60.0-200.0) Est GFR (CKD-EPI)NonAf (60.0-200.0) BUN/Creatinine Ratio (12.00-20.00) Ratio Glucose 161 H (74-99) mg/dL POC Glucose (mg/dL) (75-99) mg/dL 10/01/21 10/01/21 10/02/21 Range/Units 16:55 19:52 05:07 RBC (4.30-5.90) m/uL Hgb (13.0-17.5) gm/dL Hct (39.0-53.0) % Plt Count (150-450) k/uL Lymphocytes # (1.0-4.8) k/uL PT (9.0-12.0) sec INR (<1.2) Sodium 133 L (135-145) mmol/L Potassium (3.5-5.1) mmol/L Chloride 93 L (98-107) mmol/L BUN 40.9 H (9-20) mg/dL Creatinine 6.1 H (0.66-1.25) mg/dL Est GFR (CKD-EPI)AfAm 9.2 L (60.0-200.0) Est GFR (CKD-EPI)NonAf 8.0 L (60.0-200.0) BUN/Creatinine Ratio 6.70 L (12.00-20.00) Ratio Glucose 176 H (74-99) mg/dL POC Glucose (mg/dL) 151 H 174 H (75-99) mg/dL 10/02/21 10/02/21 10/02/21 Range/Units 05:07 06:55 11:21 RBC (4.30-5.90) m/uL Hgb (13.0-17.5) gm/dL Hct (39.0-53.0) % Plt Count (150-450) k/uL Lymphocytes # (1.0-4.8) k/uL PT 35.0 H (9.0-12.0) sec INR 3.5 H (<1.2) Sodium (135-145) mmol/L Potassium (3.5-5.1) mmol/L Chloride (98-107) mmol/L BUN (9-20) mg/dL Creatinine (0.66-1.25) mg/dL Est GFR (CKD-EPI)AfAm (60.0-200.0) Est GFR (CKD-EPI)NonAf (60.0-200.0) BUN/Creatinine Ratio (12.00-20.00) Ratio Glucose (74-99) mg/dL POC Glucose (mg/dL) 162 H 164 H (75-99) mg/dL Microbiology - Last 24 Hours (Table) 09/30/21 14:10 Blood Culture - Preliminary Blood No Growth after 24 hours 09/30/21 14:21 Blood Culture - Preliminary Blood No Growth after 24 hours Assessment and Plan Plan: 1. End-stage renal disease maintained on hemodialysis on Friday schedule via left upper extremity AV fistula. 2. Volume overload. Improved with ultrafiltration. 3. Hypertension with chronic kidney disease. 4. COPD exacerbation. 5. Possible pneumonia. On antibiotics. Plan: Hemodialysis tomorrow. Phosphorus 4.3 dated 10/01/2021. Stop IV Lasix. Change to oral torsemide.
[2021-10-02] MEDS: TORSEMIDE 20 MG TAB PO SCH (12:52)
[2021-10-02] MEDS: LORazepam 0.5 MG TAB PO PRN (14:16)
[2021-10-02 16:35] LABS: Glucose,Whole Blood 192 mg/dL (75-99)
--- NOTE | 2021-10-02 17:39 | P.PN ---
Progress Note - Text Progress Note Date: 10/02/21 history of presenting complaint: this is a 81 year old patient, follows with Dr. Greenberg. 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 Patient presented to the ER with multiple complaints of having missed dialysis on Friday, having increasing shortness of breath or productive cough nonspecific abdominal pain. No nausea vomiting. No chest pain. Some increasing edema. Admitted with volume overload. Pneumonia. IV ceftriaxone. October 01: Hemodialysis today. IV Lasix. Has a cough some phlegm production. Poor appetite. No nausea vomiting. On the recliner. Oral intake about 25%. IV ceftriaxone. October 02: Feeding better. IV ceftriaxone. Phlegm production, rundown. Some improvement in appetite. Active Medications Hydrocodone Bitart/Acetaminophen (Hydrocodone/Apap 5-325mg 1 Each Tab) 1 each PO Q6HR PRN PRN Reason: Pain Albuterol/Ipratropium (Ipratropium-Albuterol 3 Ml Neb) 3 ml INHALATION RT-QID [facility] Last Admin: 10/02/21 16:45 Dose: 3 ml Documented by: Budesonide (Budesonide 1 Mg/2 Ml Nebu) 1 mg INHALATION RT-BID [facility] Last Admin: 10/02/21 09:09 Dose: 1 mg Documented by: Citalopram Hydrobromide (Citalopram Hydrobromide 20 Mg Tab) 20 mg PO DAILY [facility] Last Admin: 10/02/21 08:49 Dose: 20 mg Documented by: Donepezil HCl (Donepezil 10 Mg Tab) 10 mg PO DAILY [facility] Last Admin: 10/02/21 08:49 Dose: 10 mg Documented by: Formoterol Fumarate (Formoterol Fumarate 20 Mcg/2 Ml Nebu) 20 mcg INHALATION RT-BID [facility] Last Admin: 10/02/21 09:09 Dose: 20 mcg Documented by: Heparin Sodium (Porcine) (Heparin Sodium,Porcine/Pf 5,000 Unit/0.5 Ml Syringe) 5,000 unit SQ Q12HR [facility] Last Admin: 10/02/21 08:43 Dose: Not Given Documented by: Hydralazine HCl (Hydralazine Hcl 50 Mg Tab) 50 mg PO BID [facility] Last Admin: 10/02/21 08:49 Dose: 50 mg Documented by: Hydralazine HCl (Hydralazine Hcl 20 Mg/Ml 1 Ml Vial) 10 mg IVP Q6HR PRN PRN Reason: Blood Pressure - High Ceftriaxone Sodium 2 gm/ (Sodium Chloride) 50 mls @ 100 mls/hr IVPB Q24HR [facility]; Protocol Last Admin: 10/02/21 08:50 Dose: 100 mls/hr Documented by: Insulin Aspart (Insulin Aspart (Novolog) 100 Unit/Ml Vial) 0 unit SQ ACHS [facility]; Protocol Last Admin: 10/02/21 17:12 Dose: 2 unit Documented by: Lorazepam (Lorazepam 0.5 Mg Tab) 0.5 mg PO Q4H PRN PRN Reason: Anxiety Last Admin: 10/02/21 14:16 Dose: 0.5 mg Documented by: Methylprednisolone Sodium Succinate (Methylprednisolone Sod Succi 40 Mg/Ml 1 Ml Vial) 40 mg IV Q8HR [facility] Last Admin: 10/02/21 15:42 Dose: 40 mg Documented by: Miscellaneous Information (Warfarin Per Pharmacy) 0 each MISCELLANE DIRECTED PRN PRN Reason: per protocol Naloxone HCl (Naloxone 0.4 Mg/Ml 1 Ml Vial) 0.2 mg IV Q2M PRN PRN Reason: Opioid Reversal Tamsulosin HCl (Tamsulosin 0.4 Mg Cap.Er.24h) 0.8 mg PO DAILY [facility] Last Admin: 10/02/21 08:49 Dose: 0.8 mg Documented by: Temazepam (Temazepam 15 Mg Cap) 15 mg PO HS PRN PRN Reason: Insomnia Torsemide (Torsemide 20 Mg Tab) 40 mg PO DAILY [facility] Last Admin: 10/02/21 12:52 Dose: 40 mg Documented by: Warfarin Sodium (Warfarin 0.5 Mg Tab) 0 mg PO ONCE ONE Stop: 10/02/21 18:01 Last Admin: 10/02/21 17:09 Dose: Not Given Documented by: Past medical history to include: Atrial fibrillation, COPD, dementia, diabetes, hypertension, hyperlipidemia, coronary artery disease with bypass, end-stage kidney disease on hemodialysis Friday and Friday Social history: Lives with . Did smoke in the past. No alcohol. . Physical examination: VITAL SIGNS: 97, 25, 152/62, 92% room air GENERAL: Up in bed EYES: Pupils equal. Conjunctiva normal. HEENT: External appearance of nose and ears normal, oral cavity grossly normal. NECK: JVD not raised; masses not palpable. HEART: First and second heart sounds are normal; edema present LUNGS: Respiratory rate increased; decreased breath sounds ABDOMEN: Soft, nontender, liver spleen not palpable, no masses palpable. MUSCULAR skeletal: Evidence of OA, able to move his left hip. Joint. . PSYCH: Answering simple questions INVESTIGATIONS, reviewed in the clinical context: October 02: INR 3.5 potassium 5.1 creatinine 6.1 White count 5.18 globin 10.6 platelets 88 INR 2.7 sodium 137 potassium 6.2 BUN 64 creatinine 8156 COVID 19: Not detected CT chest abdomen pelvis: Pleural effusions with basilar pulmonary infiltrates. Renal atrophy. Assessment and plan: -Pneumonia, suspect gram-negative organism: Improving IV ceftriaxone -Acute fluid overload multifactorial including having missed hemodialysis: Improving Received IV Lasix. Hemodialysis -Renal nephrolithiasis-bilateral with laser lithotripsy -End-stage kidney disease on hemodialysis-Friday Follow with nephrology -Chronic kidney disease , with hypertension Hydralazine. -Normocytic anemia likely secondary to chronic kidney disease Follow CBC -Thrombocytopenia, chronic -BPH Flomax 0.8 mg daily -Coronary artery disease, history of coronary bypass -Moderate cognitive impairment probably from late onset Alzheimer's dementia On Aricept -Acute COPD exacerbation in a previous smoker Jere. IV Solu-Medrol -Primary osteoarthritis Tylenol as needed -Chronic insomnia from multiple medical problems Lunesta 2 mg daily at bedtime -No code IV ceftriaxone. Bronchodilators. Changed to by mouth prednisone. Hemodialysis tomorrow. Hopefully discharge tomorrow. Discussed with patient
[2021-10-02] MEDS ORDERED: WARFARIN 0.5 MG TAB PO ONE (18:00)
[2021-10-02 20:35] LABS: Glucose,Whole Blood 166 mg/dL (75-99)
[2021-10-03] MEDS: LORazepam 0.5 MG TAB PO PRN (00:44)
[2021-10-03 06:14] LABS: INR 2.2 (<1.2); Prothrombin Time 22.5 sec (9.0-12.0)
[2021-10-03 06:47] LABS: Glucose,Whole Blood 180 mg/dL (75-99)
[2021-10-03] MEDS: methylPREDNISolone SOD SUCCI 40 MG/ML 1 ML VIAL IV SCH (07:33)
[2021-10-03] MEDS: IPRATROPIUM-ALBUTEROL 3 ML NEB INHALATION SCH ×3 (08:18→16:20)
[2021-10-03] MEDS: BUDESONIDE 1 MG/2 ML NEBU INHALATION SCH (08:18)
[2021-10-03] MEDS: FORMOTEROL FUMARATE 20 MCG/2 ML NEBU INHALATION SCH (08:18)
[2021-10-03] MEDS: TORSEMIDE 20 MG TAB PO SCH (08:58)
[2021-10-03] MEDS: CITALOPRAM HYDROBROMIDE 20 MG TAB PO SCH (08:58)
[2021-10-03] MEDS: DONEPEZIL 10 MG TAB PO SCH (08:58)
[2021-10-03] MEDS: TAMSULOSIN 0.4 MG CAP.ER.24H PO SCH (08:58)
[2021-10-03] MEDS: hydrALAZINE HCL 50 MG TAB PO SCH (08:58)
[2021-10-03] MEDS: HEPARIN SODIUM,PORCINE/PF 5,000 UNIT/0.5 ML SYRINGE SQ SCH (08:59)
[2021-10-03] MEDS: INSULIN ASPART (NovoLOG) 100 UNIT/ML VIAL SQ SCH ×3 (08:59→17:41)
[2021-10-03 11:13] LABS: Glucose,Whole Blood 213 mg/dL (75-99)
--- NOTE | 2021-10-03 11:26 | P.PN ---
Subjective Patient is seen in follow-up for end-stage renal disease. He is maintained on hemodialysis on Friday schedule. Resting in bed. Confused. No changes overnight. Vital signs are stable. General: Awake. Confused. HEENT: Head exam is unremarkable. LUNGS: Breath sounds decreased. HEART: Rate and Rhythm are regular. ABDOMEN: Soft, no distention. EXTREMITITES: Trace edema. Objective - Vital Signs Vital signs: Vital Signs Temp 98.7 F 10/03/21 07:06 Pulse 86 10/03/21 08:43 Resp 17 10/03/21 08:00 BP 112/61 10/03/21 07:06 Pulse Ox 93 L 10/03/21 10:34 Intake & Output 10/02/21 10/03/21 10/03/21 18:59 06:59 18:59 Intake Total 360 Balance 360 Intake: Oral 360 Other: Voiding Method Urinal Toilet Toilet # Voids 3 3 - Labs CBC & Chem 7: 10/01/21 04:02 10/02/21 05:07 Labs: Abnormal Lab Results - Last 24 Hours (Table) 10/02/21 10/02/21 10/03/21 Range/Units 16:33 20:32 05:40 PT 22.5 H (9.0-12.0) sec INR 2.2 H (<1.2) POC Glucose (mg/dL) 192 H 166 H (75-99) mg/dL 10/03/21 10/03/21 Range/Units 06:45 11:12 PT (9.0-12.0) sec INR (<1.2) POC Glucose (mg/dL) 180 H 213 H (75-99) mg/dL Microbiology - Last 24 Hours (Table) 09/30/21 14:10 Blood Culture - Preliminary Blood No Growth after 48 hours 09/30/21 14:21 Blood Culture - Preliminary Blood No Growth after 48 hours Assessment and Plan Plan: 1. End-stage renal disease maintained on hemodialysis on Friday schedule via left upper extremity AV fistula. 2. Volume overload. Improved with ultrafiltration. 3. Hypertension with chronic kidney disease. 4. COPD exacerbation. 5. Possible pneumonia. On antibiotics. Plan: Hemodialysis today. Phosphorus 4.3 dated 10/01/2021. Maintain torsemide.
[2021-10-03 14:35] VITALS: RESP 18
[2021-10-03 16:30] LABS: Glucose,Whole Blood 189 mg/dL (75-99)
[2021-10-03 17:56] VITALS: BP 185/78; PULSE 89; TEMP 98.2
[2021-10-03] MEDS ORDERED: WARFARIN 2 MG TAB PO ONE (18:00)
--- NOTE | 2021-10-03 19:49 | P.DS ---
Providers Date of admission: 09/30/21 15:24 Expected date of discharge: 10/03/21 Attending physician: Meliton Be Consults: 09/30/21 15:08 Consult Physician Routine Consulting Provider: Jayna Dietz Consult Reason/Comments: missed dialysis, received IV contrast Do you want consulting provider notified?: Yes Primary care physician: [facility] Course: history of presenting complaint: this is a 81 year old patient, follows with Dr. Greenberg. 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 Patient presented to the ER with multiple complaints of having missed dialysis on Friday, having increasing shortness of breath or productive cough nonspecific abdominal pain. No nausea vomiting. No chest pain. Some increasing edema. Admitted with volume overload. Pneumonia. IV ceftriaxone. October 01: Hemodialysis today. IV Lasix. Has a cough some phlegm production. Poor appetite. No nausea vomiting. On the recliner. Oral intake about 25%. IV ceftriaxone. October 02: Feeding better. IV ceftriaxone. Phlegm production, rundown. Some improvement in appetite. October 03: Doing well. His pre-symptoms improved. Oral intake fair. Hemodialysis today. Patient is under [facility] hospice at this assisted living. Communicated with them. Prior to admission patient was living with his nephew but now will be going to [facility] as the nephew was not able to take care of him. 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 Did smoke in the past. No alcohol. . Physical examination: VITAL SIGNS: 99, 81, 18, 126/58, 94% on 3 L GENERAL: Up in bed, comfortable EYES: Pupils equal. Conjunctiva normal. HEENT: External appearance of nose and ears normal, oral cavity grossly normal. NECK: JVD not raised; masses not palpable. HEART: First and second heart sounds are normal; edema present LUNGS: Respiratory rate normal; decreased breath sounds ABDOMEN: Soft, nontender, liver spleen not palpable, no masses palpable. MUSCULAR skeletal: Evidence of OA, PSYCH: Answering simple questions INVESTIGATIONS, reviewed in the clinical context: [place]ell : INR 2.2 October 02: INR 3.5 potassium 5.1 creatinine 6.1 White count 5.18 globin 10.6 platelets 88 INR 2.7 sodium 137 potassium 6.2 BUN 64 creatinine 8156 COVID 19: Not detected CT chest abdomen pelvis: Pleural effusions with basilar pulmonary infiltrates. Renal atrophy. Assessment and plan: -Pneumonia, suspect gram-negative organism: Improving IV ceftriaxone. Completed -Acute fluid overload multifactorial including having missed hemodialysis: Improved Received IV Lasix. Hemodialysis -Renal nephrolithiasis-bilateral with laser lithotripsy -End-stage kidney disease on hemodialysis-Friday Follow with nephrology -Chronic kidney disease , with hypertension Hydralazine. -Normocytic anemia likely secondary to chronic kidney disease Follow CBC -Thrombocytopenia, chronic -BPH Flomax 0.8 mg daily -Coronary artery disease, history of coronary bypass -Moderate cognitive impairment probably from late onset Alzheimer's dementia On Aricept -Acute COPD exacerbation in a previous smoker DuoNeb. IV Solu-Medrol -Primary osteoarthritis Tylenol as needed -Chronic insomnia from multiple medical problems Lunesta 2 mg daily at bedtime -No code/under [facility] hospice at assisted living Disposition: [facility]ly [facility], [facility], with [facility] hospice Plan - Discharge Summary New Discharge Prescriptions: New Torsemide [Demadex] 40 mg PO DAILY #30 tab predniSONE 10 mg PO DAILY #30 tab Ipratropium-Albuterol Nebulize [Duoneb 0.5 mg-3 mg/3 ml Soln] 3 ml INHALATION RT-QID #120 ml Continue Donepezil [Aricept] 10 mg PO DAILY hydrALAZINE HCL [Apresoline] 50 mg PO BID Warfarin Sodium 5 mg PO DAILY LORazepam [Ativan] 0.5 mg PO Q4H PRN PRN Reason: Anxiety Eszopiclone [Lunesta] 2 mg PO HS Citalopram Hydrobromide [CeleXA] 20 mg PO DAILY Tamsulosin [Flomax] 0.8 mg PO DAILY Discharge Medication List Donepezil [Aricept] 10 mg PO DAILY 10/20/19 [History] Citalopram Hydrobromide [CeleXA] 20 mg PO DAILY 05/05/21 [History] Eszopiclone [Lunesta] 2 mg PO HS 05/05/21 [History] hydrALAZINE HCL [Apresoline] 50 mg PO BID 05/05/21 [History] LORazepam [Ativan] 0.5 mg PO Q4H PRN 09/30/21 [History] Tamsulosin [Flomax] 0.8 mg PO DAILY 09/30/21 [History] Warfarin Sodium 5 mg PO DAILY 09/30/21 [History] Ipratropium-Albuterol Nebulize [Duoneb 0.5 mg-3 mg/3 ml Soln] 3 ml INHALATION RT-QID #120 ml 10/03/21 [Rx] Torsemide [Demadex] 40 mg PO DAILY #30 tab 10/03/21 [Rx] predniSONE 10 mg PO DAILY #30 tab 10/03/21 [Rx] Follow up Appointment(s)/Referral(s): Dereck Greenberg MD [Primary Care Provider] - 1-2 days Hospice,[facility] [NON-STAFF] - As Needed
== END 2021-10-03 20:00 | disposition hospice, home (50) | DRG 177 ==
LOC: EC 09:55 → 4SSUR 15:24
PROVIDERS: ADMIT Hospitalist; ATTEND Hospitalist
PROC: 5A1D70Z Performance of Urinary Filtration, Intermittent, Less than 6 Hours Per Day (ICD-10-PCS; principal; 2021-10-01)
DX: J15.6 Pneumonia due to other Gram-negative bacteria (principal); N18.6 End stage renal disease; E87.2 Acidosis; J44.0 Chronic obstructive pulmonary disease with (acute) lower respiratory infection; J44.1 Chronic obstructive pulmonary disease with (acute) exacerbation; I13.2 Hypertensive heart and chronic kidney disease with heart failure and with stage 5 chronic kidney disease, or end stage renal disease; J98.11 Atelectasis; D63.1 Anemia in chronic kidney disease; Z76.82 Awaiting organ transplant status; D69.6 Thrombocytopenia, unspecified; E11.22 Type 2 diabetes mellitus with diabetic chronic kidney disease; F02.80 Dementia in other diseases classified elsewhere, unspecified severity, without behavioral disturbance, psychotic disturbance, mood disturbance, and anxiety; E66.9 Obesity, unspecified; Z68.31 Body mass index [BMI] 31.0-31.9, adult; I50.9 Heart failure, unspecified; G30.1 Alzheimer's disease with late onset; Z66 Do not resuscitate; Z51.5 Encounter for palliative care; Z20.822 Contact with and (suspected) exposure to COVID-19; Z28.310 Unvaccinated for COVID-19; Z99.2 Dependence on renal dialysis; I48.91 Unspecified atrial fibrillation; E87.5 Hyperkalemia; F51.04 Psychophysiologic insomnia; M19.91 Primary osteoarthritis, unspecified site; N40.0 Benign prostatic hyperplasia without lower urinary tract symptoms; E78.5 Hyperlipidemia, unspecified; F41.9 Anxiety disorder, unspecified; I25.10 Atherosclerotic heart disease of native coronary artery without angina pectoris; R26.81 Unsteadiness on feet; I25.2 Old myocardial infarction; Z86.69 Personal history of other diseases of the nervous system and sense organs; Z79.01 Long term (current) use of anticoagulants; Z79.899 Other long term (current) drug therapy; Z95.1 Presence of aortocoronary bypass graft; Z87.891 Personal history of nicotine dependence; Z87.442 Personal history of urinary calculi; Z88.7 Allergy status to serum and vaccine; Z87.81 Personal history of (healed) traumatic fracture; Z90.49 Acquired absence of other specified parts of digestive tract; Z98.890 Other specified postprocedural states; Z82.49 Family history of ischemic heart disease and other diseases of the circulatory system; Z84.1 Family history of disorders of kidney and ureter
CPT/HCPCS: 36415; 70450; 71046; 71260; 74018; 74177; 80048; 80053; 81001; 82150; 83605; 83690; 83880; 84100; 84484; 85025; 85610; 85730; 87040; 87635; 90935; 93005; 94640; 94760; 96374; 96375; 99291